=== PATIENT | female | born 1995 | race Caucasian/White ===

== ENCOUNTER 2016-08-15 10:22 | Emergency (ER) | payer SELFPAY ==
[~2016-08-15] VITALS: Ht 165.1 cm; Wt 83.5 kg
[~2016-08-15 10:22] MED LIST: AGM875T PO; ALBU8.5H2 IH; AMOX-355 PO; AMOX-358 PO; AZIT250T5 PO; CEFD300C3 PO; CEPH-38 PO; CETI10TA17 PO; CLAR500T2 PO; D-ME118S33 PO; DCS100C PO; DEPO PROVERA; DEPRESSION MED; DOXY100C2 PO; Diphenhydramine Hcl PO; HYDR-3714 PO; HYDR1TAB PO; IBP600T1 PO; IBP800T PO; IBUP-1773 PO; METR500T PO; NAPR-243 PO; NAPR550T PO; NITR100C44 PO; ONDA-42 SL; ONDA8TAB13 PO; OXYC1TAB12 PO; PNV1TAB.7 PO; PNV1TABL67 PO; POLY17PO23 PO; PRD10T PO; PRD20T PO; PRX10T PO; SERT25TA PO; [UNRECOGNIZED DRUG - REMARK]
--- OUTSIDE RECORDS SUMMARY | 2016-08-15 10:29 | XMS REPORT | Continuity of Care Document ---
Author Author [facility] Organization [facility] Address Unknown Phone Unavailable Care Team Providers Care Line Analyst Name Role Phone SERGE BERGMAN MD PCP Insurance Providers Payer Name Policy Number Subscriber Name Relationship Swati K[employer] [id number] Christine Goldman 18 Self / Same As Patient Advance Directives Directive Response Recorded Date/Time Advance Directives No 05/24/14 3:48pm Health Care Power of Maintenance Data Analyst No 05/24/14 3:48pm Organ Donor Yes 05/24/14 3:48pm Resuscitation Status Full Code 05/24/14 3:48pm Problems Medical Problems Problem Onset Date Status Contusion of right arm Unknown Active Contusion of right arm Unknown Active Urinary tract infection Unknown Active Abdominal wall pain Unknown Active Dehydration, mild Unknown Active Nausea and vomiting in Unknown Active Rib pain on right side Unknown Active Urinary tract infection during Unknown Active Nausea Unknown Active Rib pain on right side Unknown Active Medications Medication Dose Route Sig Days/Qty Instructions Order Date Discontinued Date Status Ibuprofen 1 Each PO TID PRN 30 Qty 11/07/08 07/28/09 Discontinued Naproxen 1 Each PO TID PRN 15 Qty FOR PAIN 02/23/09 07/28/09 Discontinued [Depo Provera] 07/28/09 03/07/11 Discontinued Ibuprofen 800 Mg PO TWICE A DAY 30 Qty 07/28/09 03/07/11 Discontinued Albuterol 8.5 Gm IH EVERY 6 HOURS 2 PUFFS 12/03/11 01/15/14 Discontinued Metronidazole 1 Each PO TWICE A DAY 14 Days 12/03/11 04/30/12 Discontinued Doxycycline Hyclate (Vibramycin) 1 Each PO TWICE A DAY 14 Days 04/30/12 Discontinued Naproxen 1 Each PO TID PRN 20 Qty 01/26/12 04/30/12 Discontinued Amoxicillin/Clavulanate Potassium 1 Tab PO TWICE A DAY 20 Qty FOR INFECTION 04/24/12 04/30/12 Discontinued Cetirizine HCl (Zyrtec) 10 Mg PO DAILY 04/30/12 06/02/12 Discontinued [?Med For Bi-Polar] DAILY 07/17/12 10/12/12 Discontinued Acetaminophen/Hydrocodone Bitart 1 - 2 Each PO Q4HR PRN 8 Qty 08/11/12 01/15/14 Discontinued Doxycycline Hyclate (Vibramycin) 1 Each PO TWICE A DAY 7 Days 08/11/12 10/12/12 Discontinued [Depression Med] 10/12/12 01/15/14 Discontinued Naproxen Sodium 550 Mg PO TWICE A DAY PRN PAIN 10 Qty 01/15/14 Discontinued Cefdinir (Omnicef) 1 Each PO TWICE A DAY 14 Qty 02/01/14 03/03/14 Discontinued Ondansetron Hcl 4 Mg SL EVERY 4HRS 10 Qty 03/03/14 04/28/14 Discontinued Polyethylene Glycol 17 Gm PO DAILY 7 Days FOR CONSTIPATION 03/03/14 Discontinued Pnv No.115/Iron Fumarate/FA 1 Each PO DAILY 04/28/14 Active Hydrocodone Bit/Acetaminophen 1 Tab PO EVERY 4HRS PRN PAIN 6 Qty 05/24/14 Discontinued Cephalexin Monohydrate 1 Each PO THREE TIMES A DAY 30 Qty 04/28/14 Discontinued Nitrofurantoin/Nitrofuran Mac 100 Mg PO TWICE A DAY 7 Days 05/24/14 Active Social History Social History Problem Response Recorded Date/Time Alcohol Use Denies Use 05/03/2014 8:12pm Recreational Drug Use No 05/03/2014 8:12pm Recent Foreign Travel No 05/24/2014 3:51pm Smoking Status Current Everyday Smoker 05/24/2014 3:49pm Do you dip or chew tobacco? No 05/24/2014 3:49pm Query Response Start Date Stop Date Smoking Status Current Everyday Smoker Hospital Discharge Instructions No hospital discharge instructions. Plan of Care No plan of care. Functional Status No functional status results. Allergies, Adverse Reactions, Alerts Allergen Type Severity Reaction Status Last Updated No Known Drug Allergies Active 11/07/08 Immunizations Name Given Type Tetanus Booster (TDap) Less than 5yrs Historical influenza, split (incl. purified surface antigen) 05/24/14 Administered Vital Signs Acute Vital Signs Vital Response Date/Time Temperature (Fahrenheit) 96.8 degrees F (97.6 - 99.5) Temperature (Calculated Celsius) 36.70714 degrees C (36.4 - 37.5) Temperature Source Tympanic Pulse Rate (adult) 85 bpm (60 - 90) Pulse Rate (Adolescent 12-19yrs) 87 bpm (56 - 106) Respiratory Rate 18 bpm (12 - 24) O2 Sat by Pulse Oximetry 100 % (88 - 100) Respiratory Rate (Adolescent 12-19yrs) 18 bpm (15 - 20) Blood Pressure 111/68 mm Hg Blood Pressure Systolic (Adolescent 12-19yrs) 115 mm Hg (115 - 120) Pain Pain Intensity 9 Height (Feet) 5 feet Height (Inches) 4.00 inches Height (Calculated Centimeters) 162.773593 cm Weight (Pounds) 162 pounds Weight (Calculated Grams) 59138.965 gm Weight (Calculated Kilograms) 73.682595 kilograms Calculated BMI 27.80 Results Test Source Date Result Interp. Ref. Range Comments Alanine Aminotransferase (ALT/SGPT) April 28, 2014 4:25pm 10 U/L N 0- 55 Albumin April 28, 2014 4:25pm 3.8 G/DL N 3.2-4.5 Alkaline Phosphatase April 28, 2014 4:25pm 47 U/L L 60-350 Aspartate Amino Transf (AST/SGOT) April 28, 2014 4:25pm 11 U/L N 5-34 BUN/Creatinine Ratio April 28, 2014 4:25pm 5 - Band Neutrophils January 27, 2006 3:15pm 0 - Has specimen been collected /obtained? Y Basophils # (Auto) April 28, 2014 4:25pm 0.0 10^3/uL N 0.0-0.1 Basophils (%) (Auto) April 28, 2014 4:25pm 0 % N 0-10 Blood Urea Nitrogen April 28, 2014 4:25pm 3 MG/DL L 7-18 Calcium Level April 28, 2014 4:25pm 9.3 MG/DL N 8.5-10.1 Carbon Dioxide Level April 28, 2014 4:25pm 23 MMOL/L N 21-32 Chlamydia DNA Probe December 03, 2011 5:50pm NEG - Chlamydia/GC DNA Probe Source December 03, 2011 5:50pm CERVIX - Chloride Level April 28, 2014 4:25pm 111 MMOL/L H 98-107 Creatinine April 28, 2014 4:25pm 0.58 MG/DL L 0.60-1.30 Eosinophils # (Auto) April 28, 2014 4:25pm 0.1 10^3/uL N 0.0-0.3 Eosinophils (%) (Auto) April 28, 2014 4:25pm 1 % N 0-10 Glucose Level April 28, 2014 4:25pm 72 MG/DL N 70-105 Group A Streptococcus Screen April 24, 2012 11:02pm NEGATIVE - Hematocrit April 28, 2014 4:25pm 34 % L 35-52 Hemoglobin April 28, 2014 4:25pm 11.9 G/DL N 11.5-16.0 Lipase April 28, 2014 4:25pm 12 U/L N 8-78 Lymphocytes # (Auto) April 28, 2014 4:25pm 2.7 X 10^3 N 1.0-4.0 Lymphocytes % (Manual) January 27, 2006 3:15pm 13 - Has specimen been collected/obtained? Y Lymphocytes (%) (Auto) April 28, 2014 4:25pm 22 % N 12-44 Mean Corpuscular Hemoglobin April 28, 2014 4:25pm 30 PG N 25-34 Mean Corpuscular Hemoglobin Concent April 28, 2014 4:25pm 35 G/DL N 32 -36 Mean Corpuscular Volume April 28, 2014 4:25pm 85 FL N 80-99 Mean Platelet Volume April 28, 2014 4:25pm 9.0 FL N 7.4-10.4 Monocytes # (Auto) April 28, 2014 4:25pm 0.8 X 10^3 N 0.0-1.0 Monocytes % (Manual) January 27, 2006 3:15pm 6 - Has specimen been collected/obtained? Y Monocytes (%) (Auto) April 28, 2014 4:25pm 6 % N 0-12 Monoscreen April 24, 2012 11:02pm NEGATIVE - Neisseria gonorrhoeae DNA Probe December 03, 2011 5:50pm NEG - Neutrophils # (Auto) April 28, 2014 4:25pm 8.9 X 10^3 H 1.8-7.8 Neutrophils % (Manual) January 27, 2006 3:15pm 81 - Has specimen been collected/obtained? Y Neutrophils (%) (Auto) April 28, 2014 4:25pm 71 % N 42-75 Platelet Count April 28, 2014 4:25pm 291 10^3/uL N 130-400 Potassium Level April 28, 2014 4:25pm 3.9 MMOL/L N 3.6-5.0 Red Blood Count April 28, 2014 4:25pm 4.02 10^6/uL L 4.35-5.85 Red Cell Distribution Width April 28, 2014 4:25pm 13.2 % N 10.0-14.5 Sodium Level April 28, 2014 4:25pm 141 MMOL/L N 135-145 Total Bilirubin April 28, 2014 4:25pm 0.2 MG/DL N 0.1-1.0 Total Protein April 28, 2014 4:25pm 6.5 G/DL N 6.4-8.2 Urine Amorphous Sediment August 11, 2012 10:16pm MOD ROSARIO PHOSPHATE / LPF H - Has specimen been collected/obtained? YSpecimen Description CLEAN CATCH Urine Bacteria April 28, 2014 4:25pm FEW /HPF H - Has specimen been collected/obtained? YSpecimen Description CLEAN CATCH Urine Bilirubin April 28, 2014 4:25pm NEGATIVE - Has specimen been collected/obtained? YSpecimen Description CLEAN CATCH Urine Calcium Oxalate Crystals April 28, 2014 4:25pm LARGE /LPF H - Has specimen been collected/obtained? YSpecimen Description CLEAN CATCH Urine Casts April 28, 2014 4:25pm NONE /LPF - Has specimen been collected/obtained? YSpecimen Description CLEAN CATCH Urine Clarity April 28, 2014 4:25pm SLIGHTLY CLOUDY - Has specimen been collected/obtained? YSpecimen Description CLEAN CATCH Urine Color April 28, 2014 4:25pm YELLOW - Has specimen been collected/obtained? YSpecimen Description CLEAN CATCH Urine Crystals April 28, 2014 4:25pm PRESENT /LPF H - Has specimen been collected/obtained? YSpecimen Description CLEAN CATCH Urine Culture Indicated April 28, 2014 4:25pm YES - Has specimen been collected/obtained? YSpecimen Description CLEAN CATCH Urine Glucose (UA) April 28, 2014 4:25pm NEGATIVE - Has specimen been collected/obtained? YSpecimen Description CLEAN CATCH Urine Ketones April 28, 2014 4:25pm NEGATIVE - Has specimen been collected/obtained? YSpecimen Description CLEAN CATCH Urine Leukocyte Esterase April 28, 2014 4:25pm 2+ H - Has specimen been collected/obtained? YSpecimen Description CLEAN CATCH Urine Mucus April 28, 2014 4:25pm LARGE /LPF H - Has specimen been collected/obtained? YSpecimen Description CLEAN CATCH Urine Nitrite April 28, 2014 4:25pm NEGATIVE - Has specimen been collected/obtained? YSpecimen Description CLEAN CATCH Urine Test May 15, 2008 8:45am Negative - Has specimen been collected/obtained? YSpecimen Description CLEAN CATCH Urine Protein April 28, 2014 4:25pm NEGATIVE - Has specimen been collected/obtained? YSpecimen Description CLEAN CATCH Urine RBC April 28, 2014 4:25pm NONE /HPF - Has specimen been collected/obtained? YSpecimen Description CLEAN CATCH Urine Specific [place] April 28, 2014 4:25pm 1.020 - Has specimen been collected/obtained? YSpecimen Description CLEAN CATCH Urine Squamous Epithelial Cells April 28, 2014 4:25pm 5-10 /HPF - Has specimen been collected/obtained? YSpecimen Description CLEAN CATCH Urine Urobilinogen April 28, 2014 4:25pm 1 MG/DL - Has specimen been collected/obtained? YSpecimen Description CLEAN CATCH Urine WBC April 28, 2014 4:25pm 5-10 /HPF H - Has specimen been collected/obtained? YSpecimen Description CLEAN CATCH Urine pH April 28, 2014 4:25pm 6.5 - Has specimen been collected/ obtained? YSpecimen Description CLEAN CATCH White Blood Count April 28, 2014 4:25pm 12.5 10^3/uL H 4.3-11.0 Estimat Glomerular Filtration Rate April 28, 2014 4:25pm > 60 - GFR INTERPRETIVE DATA UNITS FOR ESTIMATED GFR (eGFR): mL/min/1.73 M2 REFERENCE RANGE FOR ESTIMATED GFR (eGFR) eGFR NORMAL eGFR >60 MODERATELY DECREASED eGFR 30-59 SEVERLY DECREASED eGFR 15-29 KIDNEY FAILURE <15 (OR DIALYSIS) Urine RBC (Auto) April 28, 2014 4:25pm NEGATIVE - Has specimen been collected/obtained? YSpecimen Description CLEAN CATCH Genital Culture Cervix December 03, 2011 5:50pm Usual/normal sharif isolated. Throat Culture Throat April 24, 2012 11:02pm No Beta Strep isolated Urine Culture Urine-Clean Catch April 28, 2014 4:25pm Procedures No known history of procedures. Encounters Encounter Location Date/Time Departed Clinic Via [facility] 05/24/14 3:34pm Departed Emergency Room [facility] 05/03/14 8:11pm Departed Emergency Room [facility] 04/28/14 3:48pm
--- NOTE | 2016-08-15 11:32 | ED Lower Extremity ---
General Chief Complaint: Lower Extremity Stated Complaint: RIGHT FOOT INJURY Nursing Triage Note: LAST NIGHT DROPPED A CAN ON BEANS ON FOOT PAIN IN FOOT SINCE. Nursing Sepsis Screen: No Definite Risk Source: patient Exam Limitations: no limitations History of Present Illness Time seen by provider: 11:32 Initial Comments 21-year-old female patient presents to the emergency department complaints of dropping a can of beans on her right foot last night. Reports increased pain today. Denies using Tylenol or ibuprofen for pain. Location Injury Occurred: home Onset: yesterday Pain/Injury Location: right foot Method of Injury: direct blow Modifying Factors: Worse With Movement Allergies and Home Medications Allergies Coded Allergies: hydrocodone (Verified Adverse Reaction, Mild, 09/10/14) Itching Home Medications No Active Prescriptions or Reported Meds Constitutional: no symptoms reported Musculoskeletal: see HPI joint pain (right foot)No joint swelling Skin: change in color (ecchymosis right foot) Psychiatric/Neurological: Denies Numbness, Denies Paresthesia, Denies Tingling , Denies Weakness All Other Systems Reviewed Negative Unless Noted: Yes (Negative excepted noted.) Past Dnpejsm-Xnsmjg-Dimypf Hx Patient Social History Alcohol Use: Denies Use Recreational Drug Use: No Smoking Status: Current Everyday Smoker Type Used: Cigarettes Former Smoker/When Quit: Jun 30, 2014 Recent Foreign Travel: No Contact w/Someone Who Travel: No Recent Infectious Disease Expo: No Recent Hopitalizations: No Immunizations Up To Date Tetanus Booster (TDap): Less than 5yrs Seasonal Allergies Seasonal Allergies: No Surgeries HX Surgeries: Yes (R WRIST REPAIR SECONDARY TO DOG BITE, BMT'S X 4) Surgeries: Adenoidectomy, Section, Ear Surgery, Gallbladder, Orthopedic, Tonsillectomy Respiratory Hx Respiratory Disorders: Yes Respiratory Disorders: Asthma Cardiovascular Hx Cardiac Disorders: No Neurological Hx Neurological Disorders: No 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 System Hx 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 Genitourinary Hx Genitourinary Disorders: No Gastrointestinal Hx Gastrointestinal Disorders: No Gastrointestinal Disorders: Gall Bladder Disease Musculoskeletal Hx Musculoskeletal Disorders: No Endocrine Hx Endocrine Disorders: No HEENT HX ENT Disorders: Yes (BMT'S X 4 ) HEENT Disorders: Chronic Ear Infection Cancer Hx Cancer: No Psychosocial Hx Psychiatric Problems: Yes Behavioral Health Disorders: Anxiety, Bipolar, Depression Integumentary HX Skin/Integumentary Disorder: No Blood Transfusions Hx Blood Disorders: No Reviewed Nursing Assessment Reviewed/Agree w Nursing PMH: Yes Family Medical History Significant Family History: No Pertinent Family Hx Physical Exam Vital Signs Vital Sign - Last 12Hours 08/15/16 10:56 Temp 97.7 Pulse 63 Resp 18 B/P 103/72 O2 Delivery Room Air Capillary Refill : Less Than 3 Seconds General Appearance: WD/WN no apparent distress Cardiovascular: normal peripheral pulses regular rate, rhythm no edema no murmur Respiratory: lungs clear normal breath sounds no respiratory distress Legs: bilateral leg non-tender, bilateral leg normal inspection, bilateral leg normal range of motion, bilateral leg no evidence of injury Knees: bilateral knee non-tender, bilateral knee normal inspection, bilateral knee normal range of motion, bilateral knee no evidence of injury Ankles: bilateral ankle non-tender, bilateral ankle normal inspection, bilateral ankle normal range of motion, bilateral ankle no evidence of injury Feet: left foot non-tender, left foot normal inspection, left foot normal range of motion, left foot no evidence of injury, right foot bone tenderness ( mid dorsal foot), right foot ecchymosis (2x3 cm area of ecchymosis mid dorsal foot), right foot limited range of motion, right foot pain, right foot soft tissue tenderness Neurologic/Tendon: normal sensation normal motor functions normal tendon functions responds to pain no evidence tendon injury Neurologic/Psychiatric: no motor/sensory deficits alert normal mood/affect oriented x 3 Skin: normal color warm/dry ecchymosis (2x3 cm area of ecchymosis mid dorsal foot) Progress/Results/Core Measures Results/Orders My Orders Orders-JOMAR HANNON Foot, Right, 3 View (08/15/16 11:30) Vital Signs/I&O Vital Sign - Last 12Hours 08/15/16 10:56 Temp 97.7 Pulse 63 Resp 18 B/P 103/72 O2 Delivery Room Air Blood Pressure Mean: 82 Diagnostic Imaging Diagonstic Imaging: Xray Plain Films/CT/US/NM/MRI: other (right foot) Comments FINDINGS: No fracture, dislocation or radiopaque foreign body seen. Joint alignment is satisfactory. IMPRESSION: Unremarkable exam. Dictated on workstation # [id number] Reviewed: Reviewed by Me (radiology report reviewed by me) Departure Communication Progress Notes [facility] Impression Impression: Primary Impression: Contusion of foot Qualified Code: S90.31XA - Contusion of right foot, initial encounter Disposition: 01 HOME, SELF-CARE Condition: Improved Departure-Patient Inst. Decision time for Depature: 12:12 Referrals: NO,LOCAL PHYSICIAN (PCP/Family) Primary Care Physician Patient Instructions: Contusion (DC) Add. Discharge Instructions: All discharge instructions reviewed with patient and/or family. Voiced understanding. Tylenol extra strength [id number] as directed for pain. Ibuprofen 800 mg by mouth every 8 hours as needed for pain. Elevate right foot on pillows. Ice pack for 20 minute intervals as needed for pain. Follow-up with your family practitioner if no improvement in symptoms in 7-10 days. Return to the emergency department for worsened symptoms or any other concerns. 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
--- NOTE | 2016-08-15 12:02 | Diagnostic Imaging Report ---
3 views of the right foot. INDICATION: Right foot pain after injury with a can dropped on the foot FINDINGS: No fracture, dislocation or radiopaque foreign body seen. Joint alignment is satisfactory. IMPRESSION: Unremarkable exam. Dictated by: Dictated on workstation # [id number]
[2016-08-15] MEDS ORDERED: IBUPROFEN 800 MG (MOTRIN) TAB PO STA (12:16)
[2016-08-15 12:20] VITALS: BP 103/72
== END 2016-08-15 12:22 | disposition home or self-care (01) ==
LOC: EDUNIT# 10:22 → ER 10:24
DX: S90.31XA Contusion of right foot, initial encounter (principal); W20.8XXA Other cause of strike by thrown, projected or falling object, initial encounter; Y92.009 Unspecified place in unspecified non-institutional (private) residence as the place of occurrence of the external cause; Y99.8 Other external cause status
CPT/HCPCS: 73630; 99283

== ENCOUNTER 2016-10-31 14:11 | Emergency (ER) | payer SELFPAY ==
[~2016-10-31] VITALS: Ht 165.1 cm; Wt 79.4 kg
[2016-10-31] MEDS ORDERED: CYCL5TAB PO (14:24)
--- NOTE | 2016-10-31 14:24 | ED Back Pain ---
General Chief Complaint: Back Problems Stated Complaint: BACK PAIN Source of Information: Patient Exam Limitations: No Limitations History of Present Illness Time Seen by Provider: 14:22 Initial Comments To ER with pain in her back from lifting one of her residence at work yesterday. No falls. No fevers or chills. Pain is worsened by movement. She needs a work note excusing her from work tomorrow. Location: Lumbar Spine, Paraspinous Muscles Timing/Duration: 12-24 Hours Associated Symptoms: lower back pain Allergies and Home Medications Allergies Coded Allergies: hydrocodone (Verified Adverse Reaction, Mild, 09/10/14) Itching Constitutional: see HPI EENTM: see HPI Respiratory: no symptoms reported Cardiovascular: no symptoms reported Genitourinary: no symptoms reported Musculoskeletal: see HPI, back pain Skin: no symptoms reported Psychiatric/Neurological: No Symptoms Reported Past Audvigk-Pwbqni-Urjmzu Hx Patient Social History Type Used: Cigarettes Former Smoker/When Quit: Jun 30, 2014 Recent Foreign Travel: No Contact w/Someone Who Travel: No Recent Hopitalizations: No Immunizations Up To Date Tetanus Booster (TDap): Less than 5yrs Seasonal Allergies Seasonal Allergies: No Surgeries HX Surgeries: Yes (R WRIST REPAIR SECONDARY TO DOG BITE, BMT'S X 4) Surgeries: Adenoidectomy, Section, Ear Surgery, Gallbladder, Orthopedic, Tonsillectomy Respiratory Hx Respiratory Disorders: Yes Respiratory Disorders: Asthma Cardiovascular Hx Cardiac Disorders: No Neurological Hx Neurological Disorders: No 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 System Hx 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 Genitourinary Hx Genitourinary Disorders: No Gastrointestinal Hx Gastrointestinal Disorders: No Gastrointestinal Disorders: Gall Bladder Disease Musculoskeletal Hx Musculoskeletal Disorders: No Endocrine Hx Endocrine Disorders: No HEENT HX ENT Disorders: Yes (BMT'S X 4 ) HEENT Disorders: Chronic Ear Infection Cancer Hx Cancer: No Psychosocial Hx Psychiatric Problems: Yes Behavioral Health Disorders: Anxiety, Bipolar, Depression Integumentary HX Skin/Integumentary Disorder: No Blood Transfusions Hx Blood Disorders: No Family Medical History Significant Family History: No Pertinent Family Hx Physical Exam Vital Signs Capillary Refill : General Appearance: No Apparent Distress, WD/WN HEENT: PERRL/EOMI, TMs Normal Respiratory: No Accessory Muscle Use, No Respiratory Distress Gastrointestinal: Non Tender, Soft Back: Normal Inspection Extremity: Normal Capillary Refill, Normal Inspection Neurologic/Psychiatric: Alert, Oriented x3 Skin: Normal Color, Warm/Dry Departure Impression Impression: Primary Impression: Acute low back pain Disposition: 01 HOME, SELF-CARE Condition: Stable Departure-Patient Inst. Decision time for Depature: 14:23 Referrals: NO,LOCAL PHYSICIAN (PCP/Family) Primary Care Physician Patient Instructions: Muscle Strain (DC) Add. Discharge Instructions: 1. Medication as directed in addition to Tylenol and Motrin 2. Return to ER for any concerns or worsening symptoms All discharge instructions reviewed with patient and/or family. Voiced understanding. Scripts Cyclobenzaprine HCl (Cyclobenzaprine HCl) 5 Mg Tablet 5 MG PO TID Y for PAIN-MODERATE, #14 TAB Prov: NI DIOP APRN 10/31/16 Work/School Note: Work Release Form Date Seen in the Emergency Department: Oct 31, 2016 Return to Work: Nov 02, 2016 Other Restrictions Listed Below: No lifting over 5 pounds until 11/04/16. NI DIOP APRN Oct 31, 2016 14:24
[2016-10-31] MEDS ORDERED: KETOROLAC 60 MG/2 ML VIAL IM ONE (14:30)
[2016-10-31 14:45] VITALS: BP 132/88
== END 2016-10-31 14:48 | disposition home or self-care (01) ==
LOC: EDUNIT# 14:11 → ER 14:14
DX: M54.5 Low back pain (principal)
CPT/HCPCS: 96372; 99281

== ENCOUNTER 2016-11-15 20:34 | Emergency (ER) | payer SELFPAY ==
[~2016-11-15] VITALS: Ht 165.1 cm; Wt 83.9 kg
[~2016-11-15 20:34] MED LIST changes: +CYCL5TAB PO
[2016-11-15] MEDS ORDERED: ACET325T49 PO (20:53)
[2016-11-15] MEDS ORDERED: ONDANSETRON 4 MG/2 ML (SDV) Z0FRAN IVP ONE (22:30)
[2016-11-15] MEDS ORDERED: fentaNYL INJECTION 100 MCG/2 ML AMP IVP ONE (22:30)
[2016-11-15 22:31] LABS: BASOPHILS # (AUTO) 0.1 10^3/uL (0.0-0.1); BASOPHILS % (AUTO) 0 % (0-10); EOSINOPHILS # (AUTO) 0.2 10^3/uL (0.0-0.3); EOSINOPHILS % (AUTO) 2 % (0-10); LYMPHOCYTES # (AUTO) 3.9 X 10^3 (1.0-4.0); LYMPHOCYTES % (AUTO) 33 % (12-44); MEAN CORPUSCULAR HEMOGLOBIN 29 PG (25-34); MEAN CORPUSCULAR HGB CONC 34 G/DL (32-36); MEAN CORPUSCULAR VOLUME 85 FL (80-99); MEAN PLATELET VOLUME 9.4 FL (7.4-10.4); MONOCYTES # (AUTO) 1.1 X 10^3 (0.0-1.0); MONOCYTES % (AUTO) 9 % (0-12); NEUTROPHILS # (AUTO) 6.7 X 10^3 (1.8-7.8); NEUTROPHILS % (AUTO) 56 % (42-75); PLATELET COUNT 314 10^3/uL (130-400); RED BLOOD COUNT 4.63 10^6/uL (4.35-5.85); RED CELL DISTRIBUTION WIDTH 13.5 % (10.0-14.5); WHITE BLOOD COUNT 11.9 10^3/uL (4.3-11.0)
[2016-11-15 22:33] LABS: ALANINE AMINOTRANSFERASE 10 U/L (0-55); ALBUMIN 4.5 G/DL (3.2-4.5); ANION GAP 11 MMOL/L (5-14); ASPARTATE AMINO TRANSFERASE 10 U/L (5-34); BILIRUBIN,TOTAL 0.3 MG/DL (0.1-1.0); BLOOD UREA NITROGEN 8 MG/DL (7-18); BUN/CREATININE RATIO 10; CALCIUM 9.4 MG/DL (8.5-10.1); CARBON DIOXIDE 20 MMOL/L (21-32); CHLORIDE 108 MMOL/L (98-107); GFR ESTIMATED > 60; GLUCOSE 89 MG/DL (70-105); LIPASE 19 U/L (8-78); POTASSIUM 3.7 MMOL/L (3.6-5.0); SODIUM 139 MMOL/L (135-145); TOTAL PROTEIN 6.8 G/DL (6.4-8.2)
[2016-11-15 22:39] LABS: BILIRUBIN,URINE NEGATIVE (NEGATIVE); KETONES,URINE NEGATIVE (NEGATIVE); LEUKOCYTE ESTERASE ,URINE NEGATIVE (NEGATIVE); NITRITE,URINE NEGATIVE (NEGATIVE); PH,URINE 6 (5-9); PROTEIN,URINE NEGATIVE (NEGATIVE); UROBILINOGEN,URINE NORMAL (NORMAL)
[2016-11-15] MEDS ORDERED: KETOROLAC 30 MG/ML VIAL IVP ONE (23:45)
[2016-11-15] MEDS ORDERED: ONDA4TAB8 SL (23:48)
--- NOTE | 2016-11-15 23:49 | ED Abdominal Pain ---
General Chief Complaint: Abdominal/GI Problems Stated Complaint: ABD PAIN/BACK PAIN/SOB Nursing Triage Note: pt reports left sided abd pain starting this morning et worsening throughout the day. she reports pain radiates to back. fever this morning of 102. Sepsis Screen: No Definite Risk Source of Information: Patient Exam Limitations: No Limitations History of Present Illness Time Seen By Provider: 22:06 Initial Comments This 21-year-old woman presents with complaints of left lower quadrant pain radiating to the back. She has associated nausea without vomiting. She denies any constipation or diarrhea. Pain started this morning. She denies any vaginal or urinary symptoms. Pain is rated as 9/10. Patient reports a fever this morning but she is afebrile at present. She has a Nexplanon implanted control. She took Tylenol, Flexeril, and ibuprofen at home without significant improvement. She denies any alcohol use. She denies hematuria. Allergies and Home Medications Allergies Coded Allergies: hydrocodone (Verified Adverse Reaction, Mild, 09/10/14) Itching Home Medications Acetaminophen 325 Mg Tablet, 650 MG PO PRN, (Reported) Ondansetron 4 Mg Tab.rapdis, 4 MG SL Q4H PRN for NAUSEA/VOMITING-1ST LINE, #10 Prescribed by: MICHAEL BELTRÁN on 11/15/16 1716 Review of Systems Constitutional: no symptoms reported EENTM: No Symptoms Reported Respiratory: No Symptoms Reported Cardiovascular: No Symptoms Reported Gastrointestinal: See HPI Genitourinary: See HPI Musculoskeletal: no symptoms reported Skin: no symptoms reported Psychiatric/Neurological: No Symptoms Reported Endocrine: No Symptoms Reported Hematologic/Lymphatic: No Symptoms Reported Past Ipsztac-Slgziy-Cnzcps Hx Patient Social History Alcohol Use: Occasionally Uses Recreational Drug Use: No Smoking Status: Current Everyday Smoker Type Used: Cigarettes Former Smoker/When Quit: Jun 30, 2014 Recent Foreign Travel: No Contact w/Someone Who Travel: No Recent Infectious Disease Expo: No Recent Hopitalizations: No Immunizations Up To Date Tetanus Booster (TDap): Less than 5yrs Seasonal Allergies Seasonal Allergies: No Surgeries HX Surgeries: Yes (R WRIST REPAIR SECONDARY TO DOG BITE, BMT'S X 4) Surgeries: Adenoidectomy, Section, Ear Surgery, Gallbladder, Orthopedic, Tonsillectomy Respiratory Hx Respiratory Disorders: Yes Respiratory Disorders: Asthma Cardiovascular Hx Cardiac Disorders: No Neurological Hx Neurological Disorders: No 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 System Hx 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 Disorders: No 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 Genitourinary Hx Genitourinary Disorders: No Gastrointestinal Hx Gastrointestinal Disorders: No Gastrointestinal Disorders: Gall Bladder Disease Musculoskeletal Hx Musculoskeletal Disorders: No Endocrine Hx Endocrine Disorders: No HEENT HX ENT Disorders: Yes (BMT'S X 4 ) HEENT Disorders: Chronic Ear Infection Cancer Hx Cancer: No Psychosocial Hx Psychiatric Problems: Yes Behavioral Health Disorders: Anxiety Integumentary HX Skin/Integumentary Disorder: No Blood Transfusions Hx Blood Disorders: No Family Medical History Significant Family History: No Pertinent Family Hx Physical Exam Vital Signs VS - Last 72 Hours, by Label 11/15/16 11/16/16 20:47 00:13 Temp 99.9 Pulse 110 81 Resp 16 18 B/P (MAP) 137/93 Pulse Ox 92 Capillary Refill : Less Than 3 Seconds General Appearance: WD/WN, mild distress HEENT: PERRL/EOMI, normal ENT inspection, pharynx normal Neck: normal inspection Respiratory: lungs clear, normal breath sounds, no respiratory distress, no accessory muscle use Cardiovascular: regular rate, rhythm, no edema, no murmur Gastrointestinal: normal bowel sounds, soft, tenderness (left lower quadrant) Extremities: normal inspection, no pedal edema Back: normal inspection, no CVA tenderness Neurologic/Psychiatric: manager analysis II-XII nml as tested, no motor/sensory deficits, alert, normal mood/affect, oriented x 3 Skin: normal color, warm/dry Progress/Results/Core Measures Results/Orders Lab Results Laboratory Tests Test 11/15/16 20:40 11/15/16 20:51 11/15/16 20:57 Range/Units Urine Color YELLOW Urine Clarity CLEAR Urine pH 6 5-9 Urine Specific [place] 1.025 H 1.016-1.022 Urine Protein NEGATIVE NEGATIVE Urine Glucose (UA) NEGATIVE NEGATIVE Urine Ketones NEGATIVE NEGATIVE Urine Nitrite NEGATIVE NEGATIVE Urine Bilirubin NEGATIVE NEGATIVE Urine Urobilinogen NORMAL NORMAL MG/DL Urine Leukocyte Esterase NEGATIVE NEGATIVE Urine RBC (Auto) 2+ H NEGATIVE Urine RBC 5-10 H /HPF Urine WBC NONE /HPF Urine Squamous Epithelial Cells 5-10 /HPF Urine Crystals NONE /LPF Urine Bacteria NONE /HPF Urine Casts NONE /LPF Urine Mucus SMALL H /LPF Urine Culture Indicated NO White Blood Count 11.9 H 4.3-11.0 10^3/uL Red Blood Count 4.63 4.35-5.85 10^6/uL Hemoglobin 13.3 11.5-16.0 G/DL Hematocrit 40 35-52 % Mean Corpuscular Volume 85 80-99 FL Mean Corpuscular Hemoglobin 29 25-34 PG Mean Corpuscular Hemoglobin Concent 34 32-36 G/DL Red Cell Distribution Width 13.5 10.0-14.5 % Platelet Count 314 130-400 10^3/uL Mean Platelet Volume 9.4 7.4-10.4 FL Neutrophils (%) (Auto) 56 42-75 % Lymphocytes (%) (Auto) 33 12-44 % Monocytes (%) (Auto) 9 0-12 % Eosinophils (%) (Auto) 2 0-10 % Basophils (%) (Auto) 0 0-10 % Neutrophils # (Auto) 6.7 1.8-7.8 X 10^3 Lymphocytes # (Auto) 3.9 1.0-4.0 X 10^3 Monocytes # (Auto) 1.1 H 0.0-1.0 X 10^3 Eosinophils # (Auto) 0.2 0.0-0.3 10^3/uL Basophils # (Auto) 0.1 0.0-0.1 10^3/uL Sodium Level 139 135-145 MMOL/L Potassium Level 3.7 3.6-5.0 MMOL/L Chloride Level 108 H 98-107 MMOL/L Carbon Dioxide Level 20 L 21-32 MMOL/L Anion Gap 11 5-14 MMOL/L Blood Urea Nitrogen 8 7-18 MG/DL Creatinine 0.80 0.60-1.30 MG/DL Estimat Glomerular Filtration Rate > 60 BUN/Creatinine Ratio 10 Glucose Level 89 70-105 MG/DL Calcium Level 9.4 8.5-10.1 MG/DL Total Bilirubin 0.3 0.1-1.0 MG/DL Aspartate Amino Transf (AST/SGOT) 10 5-34 U/L Alanine Aminotransferase (ALT/SGPT) 10 0-55 U/L Alkaline Phosphatase 66 40-136 U/L Total Protein 6.8 6.4-8.2 G/DL Albumin 4.5 3.2-4.5 G/DL Lipase 19 8-78 U/L Serum Test, Qualitative NEGATIVE NEGATIVE My Orders Orders - MICHAEL HUNT MD Hcg,Qualitative Serum (11/15/16 22:22) Fentanyl Injection (Sublimaze Injection (11/15/16 22:30) Ondansetron Injection (Zofran Injectio (11/15/16 22:30) Ct Abdomen/Pelvis W (11/15/16 22:54) Ketorolac Injection (Toradol Injection) (11/15/16 23:45) Medications Given in ED Current Medications Medications Dose Ordered Sig/Param Route Start Time Stop Time Status Last Admin Dose Admin Fentanyl Citrate 50 mcg ONCE ONCE IVP 11/15/16 22:30 11/15/16 22:31 DC 11/15/16 22:31 50 MCG Ketorolac Tromethamine 30 mg ONCE ONCE IVP 11/15/16 23:45 11/15/16 23:46 DC 11/15/16 23:52 30 MG Ondansetron HCl 4 mg ONCE ONCE IVP 11/15/16 22:30 11/15/16 22:31 DC 11/15/16 22:31 4 MG Vital Signs/I&O Vital Sign - Last 12Hours 11/15/16 11/16/16 20:47 00:13 Temp 99.9 Pulse 110 81 Resp 16 18 B/P (MAP) 137/93 Pulse Ox 92 Blood Pressure Mean: 108 Progress Note : Progress Note Patient was treated with fentanyl and Zofran. Labs were reviewed. CT of the abdomen and pelvis was obtained. Ovarian cyst was noted. Patient was further treated with Toradol and dismissed home in improved condition. Departure Impression Impression: Primary Impression: Left lower quadrant pain Additional Impression: Ovarian cyst Qualified Codes: N83.202 - Unspecified ovarian cyst, left side Disposition: 01 HOME, SELF-CARE Condition: Improved Departure-Patient Inst. Decision time for Depature: 23:46 Referrals: NO,LOCAL PHYSICIAN (PCP/Family) Primary Care Physician Patient Instructions: Acute Abdomen (Belly Pain), Adult (DC) Add. Discharge Instructions: You may take ibuprofen up to 800 mg every 8 hours as needed for pain. Add Tylenol (acetaminophen) up to 1000 mg every 6 hours as needed for additional pain relief. Contact your women's health provider for follow-up. Return to the ER if symptoms worsen. All discharge instructions reviewed with patient and/or family. Voiced understanding. Scripts Ondansetron (Zofran Odt) 4 Mg Tab.rapdis 4 MG SL Q4H Y for NAUSEA/VOMITING-1ST LINE, #10 TAB Prov: MICHAEL HUNT MD 11/15/16 MICHAEL HUNT MD November 15, 2016 23:48
[2016-11-16 00:13] VITALS: BP 105/71
--- NOTE | 2016-11-16 06:01 | Diagnostic Imaging Report ---
PROCEDURE: CT abdomen and pelvis with contrast. TECHNIQUE: Multiple contiguous axial images were obtained through the abdomen and pelvis after administration of intravenous contrast. INDICATION: Left flank pain The lung bases are clear. Liver appears normal. Gallbladder surgically absent. There are no pancreatic masses. Spleen is not enlarged. Adrenals are normal. Kidneys appear normal. Small bowel is not dilated. Appendix is normal. There is moderate amount of stool in the colon. Uterus is present. There is a small left adnexal cyst. Urinary bladder is normal. There is no intraperitoneal free air or free fluid. IMPRESSION: No acute abnormality seen in the abdomen or pelvis. I agree with preliminary interpretation. Dictated by: Dictated on workstation # [id number]
== END 2016-11-16 00:13 | disposition home or self-care (01) ==
LOC: EDUNIT# 20:34 → ER 20:36
DX: R10.32 Left lower quadrant pain (principal); N83.202 Unspecified ovarian cyst, left side; F17.210 Nicotine dependence, cigarettes, uncomplicated
CPT/HCPCS: 36415; 74177; 80053; 81000; 83690; 84703; 85025

== ENCOUNTER 2016-11-17 14:00 | Emergency (ER) | payer SELFPAY ==
[~2016-11-17] VITALS: Ht 162.6 cm; Wt 61.2 kg
[~2016-11-17 14:00] MED LIST changes: +ACET325T49 PO; +ONDA4TAB8 SL
[2016-11-17] MEDS ORDERED: KETOROLAC 30 MG/ML VIAL IVP ONE (14:30)
--- NOTE | 2016-11-17 14:36 | ED Abdominal Pain ---
General Chief Complaint: -Female Stated Complaint: CYST ON OVARIES Source of Information: Patient Exam Limitations: No Limitations History of Present Illness Time Seen By Provider: 14:31 Initial Comments This 21-year-old female presents complaining of lower abdominal pain presumably from a previously documented ovarian cyst. The patient was recently evaluated in the emergency department and found to have an ovarian cyst on CT examination. The patient's pain precipitated her presentation emergency department today. She described it as sharp in nature. Located in the left suprapubic area and pelvic region. There has been no associated dysuria, frequency, vaginal discharge, flank pain, nausea, vomiting, or diarrhea. 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 King. The patient is using implant for control. Allergies and Home Medications Allergies Coded Allergies: hydrocodone (Verified Adverse Reaction, Mild, 09/10/14) Itching Home Medications Acetaminophen 325 Mg Tablet, 650 MG PO PRN, (Reported) Ondansetron 4 Mg Tab.rapdis, 4 MG SL Q4H PRN for NAUSEA/VOMITING-1ST LINE, #10 Prescribed by: MICHAEL BELTRÁN on 11/15/16 0432 Review of Systems Constitutional: No chills, No fever EENTM: No Blurred Vision Respiratory: Denies Cough Cardiovascular: Denies Chest Pain Gastrointestinal: Abdominal Pain Genitourinary: Denies Burning (left lower quadrant), Denies Drainage, Denies Flank Pain Musculoskeletal: No back pain Skin: No rash Psychiatric/Neurological: Denies Anxiety, Denies Depressed Endocrine: No Symptoms Reported Hematologic/Lymphatic: No Symptoms Reported Past Viqicnz-Adudeq-Frahog Hx Patient Social History Type Used: Cigarettes Former Smoker/When Quit: Jun 30, 2014 Recent Foreign Travel: No Contact w/Someone Who Travel: No Recent Hopitalizations: No Immunizations Up To Date Tetanus Booster (TDap): Less than 5yrs Seasonal Allergies Seasonal Allergies: No Surgeries HX Surgeries: Yes (R WRIST REPAIR SECONDARY TO DOG BITE, BMT'S X 4) Surgeries: Adenoidectomy, Section, Ear Surgery, Gallbladder, Orthopedic, Tonsillectomy Respiratory Hx Respiratory Disorders: Yes Respiratory Disorders: Asthma Cardiovascular Hx Cardiac Disorders: No Neurological Hx Neurological Disorders: No 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 System Hx 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 Disorders: 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 Genitourinary Hx Genitourinary Disorders: No Gastrointestinal Hx Gastrointestinal Disorders: No Gastrointestinal Disorders: Gall Bladder Disease Musculoskeletal Hx Musculoskeletal Disorders: No Endocrine Hx Endocrine Disorders: No HEENT HX ENT Disorders: Yes (BMT'S X 4 ) HEENT Disorders: Chronic Ear Infection Cancer Hx Cancer: No Psychosocial Hx Psychiatric Problems: Yes Behavioral Health Disorders: Anxiety Integumentary HX Skin/Integumentary Disorder: No Blood Transfusions Hx Blood Disorders: No Reviewed Nursing Assessment Reviewed/Agree w Nursing PMH: Yes Family Medical History Significant Family History: No Pertinent Family Hx Physical Exam Vital Signs VS - Last 72 Hours, by Label 11/17/16 11/17/16 14:34 15:34 Temp 97.5 97.5 Pulse 70 Resp 16 B/P (MAP) 112/70 Pulse Ox 98 Capillary Refill : General Appearance: WD/WN HEENT: normal ENT inspection Neck: normal inspection Respiratory: chest non-tender, lungs clear, normal breath sounds Cardiovascular: normal peripheral pulses, regular rate, rhythm, no edema Gastrointestinal: normal bowel sounds, tenderness (tenderness is noted in the left lower quadrant mild in severity) Extremities: normal range of motion, non-tender, normal inspection, no pedal edema Neurologic/Psychiatric: no motor/sensory deficits, alert, normal mood/affect, oriented x 3 Skin: normal color, warm/dry Progress/Results/Core Measures Results/Orders Lab Results Laboratory Tests Test 11/17/16 14:25 11/17/16 15:30 Range/Units Urine Color YELLOW Urine Clarity SLIGHTLY CLOUDY Urine pH 8 5-9 Urine Specific [place] 1.010 L 1.016-1.022 Urine Protein 1+ H NEGATIVE Urine Glucose (UA) NEGATIVE NEGATIVE Urine Ketones NEGATIVE NEGATIVE Urine Nitrite NEGATIVE NEGATIVE Urine Bilirubin NEGATIVE NEGATIVE Urine Urobilinogen NORMAL NORMAL MG/DL Urine Leukocyte Esterase 1+ H NEGATIVE Urine RBC (Auto) NEGATIVE NEGATIVE Urine RBC NONE /HPF Urine WBC 0-2 /HPF Urine Squamous Epithelial Cells 2-5 /HPF Urine Crystals PRESENT H /LPF Urine Amorphous Sediment MOD ROSARIO PHOSPHATE H /LPF Urine Bacteria NONE /HPF Urine Casts NONE /LPF Urine Mucus NEGATIVE /LPF Urine Culture Indicated NO Urine Test NEGATIVE NEGATIVE White Blood Count 9.9 4.3-11.0 10^3/uL Red Blood Count 4.63 4.35-5.85 10^6/uL Hemoglobin 13.2 11.5-16.0 G/DL Hematocrit 40 35-52 % Mean Corpuscular Volume 86 80-99 FL Mean Corpuscular Hemoglobin 29 25-34 PG Mean Corpuscular Hemoglobin Concent 33 32-36 G/DL Red Cell Distribution Width 13.5 10.0-14.5 % Platelet Count 312 130-400 10^3/uL Mean Platelet Volume 9.2 7.4-10.4 FL Neutrophils (%) (Auto) 58 42-75 % Lymphocytes (%) (Auto) 32 12-44 % Monocytes (%) (Auto) 8 0-12 % Eosinophils (%) (Auto) 1 0-10 % Basophils (%) (Auto) 1 0-10 % Neutrophils # (Auto) 5.8 1.8-7.8 X 10^3 Lymphocytes # (Auto) 3.1 1.0-4.0 X 10^3 Monocytes # (Auto) 0.8 0.0-1.0 X 10^3 Eosinophils # (Auto) 0.1 0.0-0.3 10^3/uL Basophils # (Auto) 0.1 0.0-0.1 10^3/uL My Orders Orders - JAMESON CAMACHO MD Ketorolac Injection (Toradol Injection) (11/17/16 14:30) Cbc With Automated Diff (11/17/16 14:29) Ua Culture If Indicated (11/17/16 14:29) Hcg,Qualitative Urine (11/17/16 14:36) Us Non Ob Transvaginal [id number] (11/17/16 14:29) Fentanyl Injection (Sublimaze Injection (11/17/16 16:30) Medications Given in ED Current Medications Medications Dose Ordered Sig/Param Route Start Time Stop Time Status Last Admin Dose Admin Ketorolac Tromethamine 30 mg ONCE ONCE IVP 11/17/16 14:30 11/17/16 14:32 DC 11/17/16 15:34 30 MG Vital Signs/I&O Vital Sign - Last 12Hours 11/17/16 11/17/16 14:34 15:34 Temp 97.5 97.5 Pulse 70 Resp 16 B/P (MAP) 112/70 Pulse Ox 98 Progress Note : Time: 16:34 Progress Note The patient was moderately improved with IV Toradol. Her ultrasound of the pelvis demonstrated a small ovarian cyst. The remainder of the patient's evaluation was unremarkable. I discussed findings with patient. She is agreeable to following up closely with her physician on Sunday. She requested Ultram for pain. I asked that she return the emergency Department showed a further problems or questions. Departure Impression Impression: Primary Impression: Ovarian cyst Qualified Codes: N83.202 - Unspecified ovarian cyst, left side Disposition: HOME, SELF-CARE Condition: Improved Departure-Patient Inst. Decision time for Depature: 16:35 Referrals: SERGE KING MD (PCP/Family) Primary Care Physician Patient Instructions: Ovarian Cyst (DC) Add. Discharge Instructions: Ultram for pain." Dr. King next week. Return for any problems. All discharge instructions reviewed with patient and/or family. Voiced understanding. JAMESON CAMACHO MD November 17, 2016 14:36
[2016-11-17 15:04] LABS: BILIRUBIN,URINE NEGATIVE (NEGATIVE); KETONES,URINE NEGATIVE (NEGATIVE); LEUKOCYTE ESTERASE ,URINE 1+ (NEGATIVE); NITRITE,URINE NEGATIVE (NEGATIVE); PH,URINE 8 (5-9); PROTEIN,URINE 1+ (NEGATIVE); UROBILINOGEN,URINE NORMAL (NORMAL)
[2016-11-17 15:12] LABS: WBC,URINE 0-2 /HPF
[2016-11-17 15:40] LABS: BASOPHILS # (AUTO) 0.1 10^3/uL (0.0-0.1); BASOPHILS % (AUTO) 1 % (0-10); EOSINOPHILS # (AUTO) 0.1 10^3/uL (0.0-0.3); EOSINOPHILS % (AUTO) 1 % (0-10); LYMPHOCYTES # (AUTO) 3.1 X 10^3 (1.0-4.0); LYMPHOCYTES % (AUTO) 32 % (12-44); MEAN CORPUSCULAR HEMOGLOBIN 29 PG (25-34); MEAN CORPUSCULAR HGB CONC 33 G/DL (32-36); MEAN CORPUSCULAR VOLUME 86 FL (80-99); MEAN PLATELET VOLUME 9.2 FL (7.4-10.4); MONOCYTES # (AUTO) 0.8 X 10^3 (0.0-1.0); MONOCYTES % (AUTO) 8 % (0-12); NEUTROPHILS # (AUTO) 5.8 X 10^3 (1.8-7.8); NEUTROPHILS % (AUTO) 58 % (42-75); PLATELET COUNT 312 10^3/uL (130-400); RED BLOOD COUNT 4.63 10^6/uL (4.35-5.85); RED CELL DISTRIBUTION WIDTH 13.5 % (10.0-14.5); WHITE BLOOD COUNT 9.9 10^3/uL (4.3-11.0)
[2016-11-17] MEDS ORDERED: fentaNYL INJECTION 100 MCG/2 ML AMP IVP ONE (16:30)
--- NOTE | 2016-11-17 16:33 | Diagnostic Imaging Report ---
INDICATION: Pelvic pain. EXAMINATION: Transabdominal and endovaginal pelvic sonogram. FINDINGS: The uterus measures 8.3 x 3.7 x 4.8 cm. The myometrium appears normal. The endometrium measures 5 mm in thickness and appears normal. The right ovary is not seen. The left ovary contains a small follicular cyst. IMPRESSION: Unremarkable pelvic sonogram. The right ovary was not located. Dictated by: Dictated on workstation # [id number]
[2016-11-17 16:45] VITALS: BP 116/72
== END 2016-11-17 16:50 | disposition home or self-care (01) ==
LOC: EDUNIT# 14:00 → ER 14:02
DX: R10.32 Left lower quadrant pain (principal); N83.202 Unspecified ovarian cyst, left side
CPT/HCPCS: 36415; 76830; 81000; 84703; 85025; 96374; 99282

== ENCOUNTER 2016-12-14 21:17 | Emergency (ER) | payer SELFPAY ==
[~2016-12-14] VITALS: Ht 165.1 cm; Wt 83.9 kg
[2016-12-14] MEDS ORDERED: CYCLOBENZAPRINE 10 MG (FLEXERIL) TAB PO STA (22:16)
--- NOTE | 2016-12-14 22:21 | ED Upper Extremity ---
General Chief Complaint: Upper Extremity Stated Complaint: RT SHOULDER PAIN/NUMBNESS Nursing Triage Note: PT TO ED W/ C/O RT SHOULDER PAIN ET NUMBNESS ONSET X1 WK. DENIES INJURY Nursing Sepsis Screen: No Definite Risk History of Present Illness Time seen by provider: 22:10 Initial Comments Evaluation for right neck and shoulder pain. She has tried taking Flexeril with minimal improvement. 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 because she had difficulty with lifting a patient Onset: other (1 week) Severity: mild Pain/Injury Location: right shoulder Method of Injury: unknown Modifying Factors: Improves With Pain Medication, Improves With Rest Allergies and Home Medications Allergies Coded Allergies: hydrocodone (Verified Adverse Reaction, Mild, 09/10/14) Itching Home Medications Acetaminophen 325 Mg Tablet, 650 MG PO PRN, (Reported) Ondansetron 4 Mg Tab.rapdis, 4 MG SL Q4H PRN for NAUSEA/VOMITING-1ST LINE, #10 Prescribed by: MICHAEL BELTRÁN on 11/15/16 0659 Constitutional: no symptoms reported, see HPI EENTM: no symptoms reported, see HPI Respiratory: no symptoms reported, see HPI Cardiovascular: no symptoms reported, see HPI Gastrointestinal: no symptoms reported, see HPI Genitourinary: no symptoms reported, see HPI Musculoskeletal: see HPI, joint pain (right shoulder), neck pain (right-sided) Skin: no symptoms reported, see HPI Psychiatric/Neurological: No Symptoms Reported, See HPI All Other Systems Reviewed Negative Unless Noted: Yes Past Bmcoktd-Eboyvs-Fyingv Hx Patient Social History Alcohol Use: Occasionally Uses Recreational Drug Use: No Smoking Status: Current Everyday Smoker Type Used: Cigarettes Former Smoker/When Quit: Jun 30, 2014 Recent Foreign Travel: No Contact w/Someone Who Travel: No Recent Infectious Disease Expo: No Recent Hopitalizations: No Immunizations Up To Date Tetanus Booster (TDap): Less than 5yrs Seasonal Allergies Seasonal Allergies: No Surgeries HX Surgeries: Yes (R WRIST REPAIR SECONDARY TO DOG BITE, BMT'S X 4) Surgeries: Adenoidectomy, Section, Ear Surgery, Gallbladder, Orthopedic, Tonsillectomy Respiratory Hx Respiratory Disorders: Yes Respiratory Disorders: Asthma Cardiovascular Hx Cardiac Disorders: No Neurological Hx Neurological Disorders: No 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 System 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 Genitourinary Hx Genitourinary Disorders: No Gastrointestinal Hx Gastrointestinal Disorders: No Gastrointestinal Disorders: Gall Bladder Disease Musculoskeletal Hx Musculoskeletal Disorders: No Endocrine Hx Endocrine Disorders: No HEENT HX ENT Disorders: Yes (BMT'S X 4 ) HEENT Disorders: Chronic Ear Infection Cancer Hx Cancer: No Psychosocial Hx Psychiatric Problems: Yes Behavioral Health Disorders: Anxiety Integumentary HX Skin/Integumentary Disorder: No Blood Transfusions Hx Blood Disorders: No Reviewed Nursing Assessment Reviewed/Agree w Nursing PMH: Yes Family Medical History Significant Family History: No Pertinent Family Hx Physical Exam Vital Signs Vital Sign - Last 12Hours 12/14/16 21:29 Temp 98.1 Pulse 77 Resp 20 B/P (MAP) 128/66 Pulse Ox 98 O2 Delivery Room Air Capillary Refill : Less Than 3 Seconds General Appearance: WD/WN, no apparent distress HEENT: PERRL/EOMI, normal ENT inspection, TMs normal, pharynx normal Neck: limited range of motion, No lymphadenopathy (R), No lymphadenopathy (L), tender lateral (right-sided), No tender midline, No thyromegaly, other ( tenderness through the right trapezius muscle, gentle palpation of the trapezius causes radicular symptoms into the right shoulder and right upper arm. No palpable masses noted in the right trapezius.) Cardiovascular: normal peripheral pulses, regular rate, rhythm, no edema, no murmur Respiratory: chest non-tender, lungs clear, normal breath sounds Shoulder: normal inspection, No bone tenderness, limited ROM (secondary to pain ), pain, soft tissue tenderness (posteriorly), No swelling Elbow/Forearm: normal inspection, non-tender, no evidence of injury, normal ROM , Right Neurologic/Tendon: normal sensation, normal motor functions, normal tendon functions Neurologic/Psychiatric: no motor/sensory deficits, alert, normal mood/affect, oriented x 3 Skin: normal color, warm/dry Progress/Results/Core Measures Results/Orders My Orders Orders - ARPITA GALVAN Cyclobenzaprine Tablet (Flexeril Tablet) (12/14/16 22:16) Tramadol Tablet (Ultram Tablet) (12/14/16 22:16) Vital Signs/I&O Vital Sign - Last 12Hours 12/14/16 21:29 Temp 98.1 Pulse 77 Resp 20 B/P (MAP) 128/66 Pulse Ox 98 O2 Delivery Room Air Blood Pressure Mean: 86 Departure Impression Impression: Primary Impression: Trapezius strain Qualified Codes: S46.811A - Strain of other muscles, fascia and tendons at shoulder and upper arm level, right arm, initial encounter Disposition: 01 HOME, SELF-CARE Condition: Stable Departure-Patient Inst. Referrals: NO,LOCAL PHYSICIAN (PCP) Primary Care Physician Patient Instructions: Neck Stretches, Muscle Strain (DC) Add. Discharge Instructions: Warm moist compresses to neck every 2 hours. Ibuprofen 600 mg every 8 hours Follow-up with Sarah Lopez APRN if symptoms don't improve in a few days. Return to emergency department if symptoms worsen or new problems. All discharge instructions reviewed with patient and/or family. Voiced understanding. ARPITA GALVAN Dec 14, 2016 22:21
[2016-12-14 22:23] VITALS: BP 0/0
== END 2016-12-14 22:33 | disposition home or self-care (01) ==
LOC: EDUNIT# 21:17 → ER 21:19
DX: S46.811A Strain of other muscles, fascia and tendons at shoulder and upper arm level, right arm, initial encounter (principal); X58.XXXA Exposure to other specified factors, initial encounter; J45.909 Unspecified asthma, uncomplicated; K82.9 Disease of gallbladder, unspecified; F17.210 Nicotine dependence, cigarettes, uncomplicated
CPT/HCPCS: 99282

== ENCOUNTER 2017-01-29 21:28 | Emergency (ER) | payer OTHER ==
[~2017-01-29] VITALS: Ht 160 cm; Wt 72.6 kg
--- NOTE | 2017-01-29 22:07 | ED Respiratory ---
General Chief Complaint: Respiratory Problems Stated Complaint: SOB Nursing Triage Note: PT TO ED TRIAGE PER EMS FOR C/O SOB ONSET EARLIER TODAY. PT REPORTS SHE HAD HER WISDOM TEETH PULLED X4 DAYS AGO ET IS ON AMOXIL ET HYDROCODONE SINCE W/O PROBLEM. PER PT'S FILE, PT IS ALLERGIC TO HYDROCODONE BUT STATES THE DENTIST TOLD HER TO GO AHEAD AND TAKE IT ANYWAY. NO DISTRESS OR DISCOMFORT NOTED AT THIS TIME. NO OTHER C/O VOICED Source: patient, EMS Exam Limitations: no limitations History of Present Illness Time seen by provider: 22:02 Initial Comments Patient reports she woke up this morning being short of breath with a nonproductive cough. She denies any fevers or chills nor sick contacts or travel outside the [facility]. She remarks she's had nausea and has taken Zofran for it. She had not Zofran because she recently was started on antibiotics amoxicillin for her wisdom teeth being pulled out late last week. She felt the Zofran was not helping at all. Her shortness of breath was accompanied by left arm numbness and tingling face tingling and feeling of anxiety. She denies any history of anxiety or depression. She is not on any other medicines besides Zofran and ibuprofen and [place] and amoxicillin. She has a distant history of asthma for which she has not used a nebulizer or breathing treatment in over 4 years. She denies any rash or upper respiratory symptoms of congestion and rhinorrhea ear fullness or popping. Allergies and Home Medications Allergies Coded Allergies: hydrocodone (Verified Adverse Reaction, Mild, 09/10/14) Itching Home Medications Acetaminophen 325 Mg Tablet, 650 MG PO PRN, (Reported) Albuterol Sulfate 1 Puff Puff, 2 PUFF IH Q4H PRN for WHEEZING for 14 Days, #1 Ref 0 1 PUFF = 90 MCG Prescribed by: LYUBOV BEVERLY on 01/29/17 2338 Azithromycin 250 Mg Tablet, 250 MG PO UD for 5 Days, #6 Ref 0 TAKE 2 TABLETS ON DAY ONE THEN TAKE 1 TABLET DAILY FOR FOUR MORE DAYS Prescribed by: LYUBOV BEVERLY on 01/29/17 2338 Ondansetron 4 Mg Tab.rapdis, 4 MG SL Q4H PRN for NAUSEA/VOMITING-1ST LINE, #10 Prescribed by: MICHAEL BELTRÁN on 11/15/16 2348 Constitutional: No chills, No diaphoresis EENTM: No ear pain, No eye pain, No nose congestion, No throat swelling Respiratory: see HPI, cough, No phlegm, short of breath, No wheezing Cardiovascular: No chest pain, No edema, No palpitations Gastrointestinal: No abdominal pain, No constipation, No diarrhea, No nausea Genitourinary: No discharge, No dysuria : No (serum test negative) Musculoskeletal: No back pain, No joint pain Skin: No pruritus, No rash Psychiatric/Neurological: Denies Headache, Denies Numbness Past Kvvyflf-Jsdyiy-Ppgrbm Hx Patient Social History Alcohol Use: Occasionally Uses Recreational Drug Use: No Smoking Status: Current Everyday Smoker Type Used: Cigarettes Former Smoker/When Quit: Jun 30, 2014 Recent Foreign Travel: No Contact w/Someone Who Travel: No Recent Infectious Disease Expo: No Recent Hopitalizations: No Immunizations Up To Date Tetanus Booster (TDap): Less than 5yrs Seasonal Allergies Seasonal Allergies: No Surgeries HX Surgeries: Yes (R WRIST REPAIR SECONDARY TO DOG BITE, BMT'S X 4) Surgeries: Adenoidectomy, Section, Ear Surgery, Gallbladder, Orthopedic, Tonsillectomy Respiratory Hx Respiratory Disorders: Yes Respiratory Disorders: Asthma Cardiovascular Hx Cardiac Disorders: No Neurological Hx Neurological Disorders: No 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 System Hx 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 Genitourinary Hx Genitourinary Disorders: No Gastrointestinal Hx Gastrointestinal Disorders: No Gastrointestinal Disorders: Gall Bladder Disease Musculoskeletal Hx Musculoskeletal Disorders: No Endocrine Hx Endocrine Disorders: No HEENT HX ENT Disorders: Yes (BMT'S X 4 ) HEENT Disorders: Chronic Ear Infection Cancer Hx Cancer: No Psychosocial Hx Psychiatric Problems: Yes Behavioral Health Disorders: Anxiety Integumentary HX Skin/Integumentary Disorder: No Blood Transfusions Hx Blood Disorders: No Family Medical History Significant Family History: No Pertinent Family Hx Physical Exam Vital Signs Vital Sign - Last 12Hours 01/29/17 21:33 Temp 97.6 Pulse 87 Resp 20 B/P (MAP) 118/76 Pulse Ox 97 O2 Delivery Room Air Capillary Refill : Less Than 3 Seconds General Appearance: WD/WN, no apparent distress Eyes: Bilateral Eye EOMI, Bilateral Eye Normal Inspection, Bilateral Eye PERRL HEENT: PERRL/EOMI, normal ENT inspection, TMs normal, pharynx normal Neck: non-tender, supple, normal inspection Respiratory: chest non-tender, lungs clear, normal breath sounds, no respiratory distress, no accessory muscle use, decreased breath sounds ( bilaterally) Cardiovascular: normal peripheral pulses, regular rate, rhythm Gastrointestinal: normal bowel sounds, non tender, soft Extremities: non-tender, normal inspection, no pedal edema, normal capillary refill Neurologic/Psychiatric: alert, oriented x 3 Skin: normal color, warm/dry Lymphatic: no adenopathy Progress/Results/Core Measures Results/Orders Lab Results Laboratory Tests Test 01/29/17 22:50 Range/Units White Blood Count 7.1 4.3-11.0 10^3/uL Red Blood Count 4.57 4.35-5.85 10^6/uL Hemoglobin 13.3 11.5-16.0 G/DL Hematocrit 40 35-52 % Mean Corpuscular Volume 87 80-99 FL Mean Corpuscular Hemoglobin 29 25-34 PG Mean Corpuscular Hemoglobin Concent 33 32-36 G/DL Red Cell Distribution Width 12.6 10.0-14.5 % Platelet Count 273 130-400 10^3/uL Mean Platelet Volume 9.1 7.4-10.4 FL Neutrophils (%) (Auto) 60 42-75 % Lymphocytes (%) (Auto) 29 12-44 % Monocytes (%) (Auto) 9 0-12 % Eosinophils (%) (Auto) 1 0-10 % Basophils (%) (Auto) 0 0-10 % Neutrophils # (Auto) 4.3 1.8-7.8 X 10^3 Lymphocytes # (Auto) 2.1 1.0-4.0 X 10^3 Monocytes # (Auto) 0.7 0.0-1.0 X 10^3 Eosinophils # (Auto) 0.1 0.0-0.3 10^3/uL Basophils # (Auto) 0.0 0.0-0.1 10^3/uL Sodium Level 139 135-145 MMOL/L Potassium Level 3.4 L 3.6-5.0 MMOL/L Chloride Level 108 H 98-107 MMOL/L Carbon Dioxide Level 20 L 21-32 MMOL/L Anion Gap 11 5-14 MMOL/L Blood Urea Nitrogen 7 7-18 MG/DL Creatinine 0.84 0.60-1.30 MG/DL Estimat Glomerular Filtration Rate > 60 BUN/Creatinine Ratio 8 Glucose Level 89 70-105 MG/DL Calcium Level 9.2 8.5-10.1 MG/DL Total Bilirubin 0.6 0.1-1.0 MG/DL Aspartate Amino Transf (AST/SGOT) 12 5-34 U/L Alanine Aminotransferase (ALT/SGPT) 13 0-55 U/L Alkaline Phosphatase 75 40-136 U/L Total Protein 7.0 6.4-8.2 GM/DL Albumin 4.2 3.2-4.5 GM/DL Serum Test, Qualitative NEGATIVE NEGATIVE My Orders Orders - LYUBOV BEVERLY Chest Pa/Lat (2 View) (01/29/17 22:07) Cbc With Automated Diff (01/29/17 22:07) Comprehensive Metabolic Panel (01/29/17 22:07) Albuterol/Ipra Inhalation Soln (Duoneb I (01/29/17 22:15) Hcg,Qualitative Serum (01/29/17 22:07) Svn Sm Volume Nebulizer Rt-Rfs (01/29/17 22:07) Ibuprofen Tablet (Motrin Tablet) (01/29/17 23:45) Medications Given in ED Current Medications Medications Dose Ordered Sig/Param Route Start Time Stop Time Status Last Admin Dose Admin Albuterol/ Ipratropium 3 ml ONCE ONCE INH 01/29/17 22:15 01/29/17 22:16 DC 01/29/17 22:21 3 ML Ibuprofen 600 mg ONCE ONCE PO 01/29/17 23:45 01/29/17 23:46 DC 01/29/17 23:46 600 MG Vital Signs/I&O Vital Sign - Last 12Hours 01/29/17 01/29/17 01/29/17 21:33 22:21 23:49 Temp 97.6 Pulse 87 91 Resp 20 20 B/P (MAP) 118/76 Pulse Ox 97 99 O2 Delivery Room Air Room Air Room Air Blood Pressure Mean: 90 Diagnostic Imaging Diagonstic Imaging: Xray Plain Films/CT/US/NM/MRI: chest Comments No acute cardiopulmonary processes noted. Reviewed: Reviewed by Me Departure Impression Impression: Primary Impression: Bronchitis Disposition: 01 HOME, SELF-CARE Condition: Stable Departure-Patient Inst. Decision time for Depature: 23:36 Referrals: NO,LOCAL PHYSICIAN (PCP) Primary Care Physician SERGE BERGMAN MD (Family) Primary Care Physician Patient Instructions: Acute Bronchitis, Adult (DC) Add. Discharge Instructions: Drink plenty of fluids. If you're having fever or headache you can take Tylenol 1000 g every 8 hours. You can also use Motrin. Have you take the albuterol inhaler every 4 hours 2 puffs for wheezing or shortness of breath. If your symptoms are not getting better in 5-7 days you should follow up with your primary care physician. 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 All discharge instructions reviewed with patient and/or family. Voiced understanding. Scripts Azithromycin (Azithromycin) 250 Mg Tablet 250 MG PO UD for 5 Days, #6 TAB 0 Refills TAKE 2 TABLETS ON DAY ONE THEN TAKE 1 TABLET DAILY FOR FOUR MORE DAYS Prov: LYUBOV BEVERLY 01/29/17 Albuterol Sulfate (VENTOLIN HFA) 1 Puff Puff 2 PUFF IH Q4H Y for WHEEZING for 14 Days, #1 PUFF 0 Refills 1 PUFF = 90 MCG Prov: LYUBOV BEVERLY 01/29/17 LYUBOV BEVERLY Jan 29, 2017 22:07
[2017-01-29] MEDS ORDERED: RT-ALBUTEROL/IPRATROPIUM 3 ML (DUONEB) VIAL INH ONE (22:15)
[2017-01-29 22:57] LABS: BASOPHILS % (AUTO) 0 % (0-10); EOSINOPHILS # (AUTO) 0.1 10^3/uL (0.0-0.3); EOSINOPHILS % (AUTO) 1 % (0-10); LYMPHOCYTES # (AUTO) 2.1 X 10^3 (1.0-4.0); LYMPHOCYTES % (AUTO) 29 % (12-44); MEAN CORPUSCULAR HEMOGLOBIN 29 PG (25-34); MEAN CORPUSCULAR HGB CONC 33 G/DL (32-36); MEAN CORPUSCULAR VOLUME 87 FL (80-99); MEAN PLATELET VOLUME 9.1 FL (7.4-10.4); MONOCYTES # (AUTO) 0.7 X 10^3 (0.0-1.0); MONOCYTES % (AUTO) 9 % (0-12); NEUTROPHILS # (AUTO) 4.3 X 10^3 (1.8-7.8); NEUTROPHILS % (AUTO) 60 % (42-75); PLATELET COUNT 273 10^3/uL (130-400); RED BLOOD COUNT 4.57 10^6/uL (4.35-5.85); RED CELL DISTRIBUTION WIDTH 12.6 % (10.0-14.5); WHITE BLOOD COUNT 7.1 10^3/uL (4.3-11.0)
[2017-01-29 23:19] LABS: ALANINE AMINOTRANSFERASE 13 U/L (0-55); ALBUMIN 4.2 GM/DL (3.2-4.5); ANION GAP 11 MMOL/L (5-14); ASPARTATE AMINO TRANSFERASE 12 U/L (5-34); BILIRUBIN,TOTAL 0.6 MG/DL (0.1-1.0); BLOOD UREA NITROGEN 7 MG/DL (7-18); BUN/CREATININE RATIO 8; CALCIUM 9.2 MG/DL (8.5-10.1); CARBON DIOXIDE 20 MMOL/L (21-32); CHLORIDE 108 MMOL/L (98-107); CREATININE SERUM 0.84 MG/DL (0.60-1.30); GFR ESTIMATED > 60; GLUCOSE 89 MG/DL (70-105); POTASSIUM 3.4 MMOL/L (3.6-5.0); SODIUM 139 MMOL/L (135-145)
[2017-01-29] MEDS ORDERED: RT-ALBUINH IH (23:38)
[2017-01-29] MEDS ORDERED: AZIT250T5 PO (23:38)
[2017-01-29] MEDS ORDERED: IBUPROFEN 600 MG (MOTRIN) TAB PO ONE (23:45)
[2017-01-29 23:49] VITALS: BP 128/81
--- NOTE | 2017-01-30 08:43 | Diagnostic Imaging Report ---
INDICATION: Shortness of breath. COMPARISON: 07/27/2015. FINDINGS: Two views of the chest were obtained. The heart size is normal. The pulmonary vessels appear unremarkable. There is no pneumothorax, mediastinal widening, or pleural fluid demonstrated. The lungs are clear. The osseous structures appear unremarkable. IMPRESSION: Negative chest. Dictated by: Dictated on workstation # [id number]
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
== END 2017-01-29 23:49 | disposition home or self-care (01) ==
LOC: EDUNIT# 21:28 → ER 21:30
DX: J40 Bronchitis, not specified as acute or chronic (principal); J45.909 Unspecified asthma, uncomplicated; F41.9 Anxiety disorder, unspecified; F17.210 Nicotine dependence, cigarettes, uncomplicated
CPT/HCPCS: 36415; 71020; 80053; 84703; 85025; 94640; 99283

== ENCOUNTER 2017-03-15 19:42 | Emergency (ER) | payer OTHER ==
[~2017-03-15 19:42] MED LIST changes: +RT-ALBUINH IH
== END 2017-03-15 20:00 | disposition left against medical advice (07) ==
LOC: EDUNIT# 19:42 → ER 19:43
DX: R21 Rash and other nonspecific skin eruption (principal)

== ENCOUNTER 2017-05-05 12:13 | Emergency (ER) | payer SELFPAY ==
[~2017-05-05] VITALS: Ht 165.1 cm; Wt 84.4 kg
[2017-05-05] MEDS ORDERED: KETOROLAC 60 MG/2 ML VIAL IM ONE (12:30)
--- NOTE | 2017-05-05 12:32 | ED Back Pain ---
General Chief Complaint: Back Problems Stated Complaint: R HIP PAIN, LEG NUMBNESS Source of Information: Patient Exam Limitations: No Limitations History of Present Illness Time Seen by Provider: 12:25 Initial Comments This 21-year-old white female presents with a complaint of right low back and hip pain that began today. The patient denies trauma to the area, flank pain, dysuria frequency or hematuria, Patient denies previous injury to her low back. Allergies and Home Medications Allergies Coded Allergies: hydrocodone (Verified Adverse Reaction, Mild, 09/10/14) Itching Home Medications Acetaminophen 325 Mg Tablet, 650 MG PO PRN, (Reported) Albuterol Sulfate 1 Puff Puff, 2 PUFF IH Q4H PRN for WHEEZING for 14 Days, #1 Ref 0 1 PUFF = 90 MCG Prescribed by: LYUBOV BEVRELY on 01/29/17 2338 Azithromycin 250 Mg Tablet, 250 MG PO UD for 5 Days, #6 Ref 0 TAKE 2 TABLETS ON DAY ONE THEN TAKE 1 TABLET DAILY FOR FOUR MORE DAYS Prescribed by: LYUBOV BEVERLY on 01/29/17 2338 Ondansetron 4 Mg Tab.rapdis, 4 MG SL Q4H PRN for NAUSEA/VOMITING-1ST LINE, #10 Prescribed by: MICHAEL BELTRÁN on 11/15/16 2348 Constitutional: No chills, No fever EENTM: No ear pain Respiratory: No cough Cardiovascular: No chest pain Gastrointestinal: No abdominal pain, No diarrhea, No nausea, No vomiting Genitourinary: No decreased output, No dysuria, No frequency, No hematuria Musculoskeletal: see HPI, back pain, joint pain (right hip) Skin: No change in color, No rash Psychiatric/Neurological: No Symptoms Reported Past Uwhysdv-Axazfn-Urefxi Hx Patient Social History Type Used: Cigarettes Recent Foreign Travel: No Contact w/Someone Who Travel: No Recent Hopitalizations: No Immunizations Up To Date Tetanus Booster (TDap): Less than 5yrs Seasonal Allergies Seasonal Allergies: No Surgeries History of Surgeries: Yes (R WRIST REPAIR SECONDARY TO DOG BITE, BMT'S X 4, DENTAL) Surgeries: Adenoidectomy, Section, Ear Surgery, Gallbladder, Orthopedic, Tonsillectomy Respiratory History of Respiratory Disorde: Yes Respiratory Disorders: Asthma Cardiovascular History of Cardiac Disorders: No Neurological History of Neurological Disord: No 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 System Hx 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 Disorders: No [employer] History: IUD Gastrointestinal History of Gastrointestinal Di: No Gastrointestinal Disorders: Gall Bladder Disease Musculoskeletal History of Musculoskeletal Dis: No Endocrine History of Endocrine Disorders: No HEENT History of HEENT Disorders: Yes HEENT Disorders: Chronic Ear Infection Cancer History of Cancer: No Psychosocial History of Psychiatric Problem: Yes Behavioral Health Disorders: Anxiety Integumentary History of Skin or Integumenta: No Blood Transfusions History of Blood Disorders: No Reviewed Nursing Assessment Reviewed/Agree w Nursing PMH: Yes Family Medical History Significant Family History: No Pertinent Family Hx Physical Exam Vital Signs Vital Sign - Last 12Hours 05/05/17 12:20 Temp 98.6 Pulse 98 Resp 16 B/P (MAP) 139/67 Pulse Ox 100 O2 Delivery Room Air Capillary Refill : General Appearance: No Apparent Distress, WD/WN HEENT: TMs Normal Neck: Normal Inspection Cardiovascular: Regular Rate, Rhythm Respiratory: Chest Non Tender Gastrointestinal: Normal Bowel Sounds Back: Normal Inspection, Vertebral Tenderness (over the lumbar region.) Extremity: Normal Capillary Refill, Normal Inspection, Other (there is tenderness palpation of the right hip as well as some pain with active motion of the right hip.) Neurologic/Psychiatric: Oriented x3, No Motor/Sensory Deficits, Normal Mood/ Affect Skin: Normal Color, Warm/Dry Progress/Results/Core Measures Results/Orders My Orders Orders - JAMESON CAMACHO MD Lumbar Spine - 2-3 Views (05/05/17 12:23) Hip, Right, 2 Views (05/05/17 12:23) Ketorolac Injection (Toradol Injection) (05/05/17 12:30) Medications Given in ED Current Medications Medications Dose Ordered Sig/Param Route Start Time Stop Time Status Last Admin Dose Admin Ketorolac Tromethamine 60 mg ONCE ONCE IM 05/05/17 12:30 05/05/17 12:31 DC 05/05/17 12:31 60 MG Vital Signs/I&O Vital Sign - Last 12Hours 05/05/17 05/05/17 12:20 12:31 Temp 98.6 98.6 Pulse 98 Resp 16 B/P (MAP) 139/67 Pulse Ox 100 O2 Delivery Room Air Progress Note : Time: 12:35 Progress Note Patient was treated with 60 mg of ketorolac IM. LS-spine and right hip films were ordered. 12:52 pm X-rays are unremarkable. I reassured the patient. I will prescribe more Toradol and Flexeril for her. I asked that she follow up with her doctor on Sunday for further evaluation and return in interim if any problems or questions. Departure Impression Impression: Primary Impression: Lumbar radiculopathy Disposition: HOME, SELF-CARE Condition: Improved Departure-Patient Inst. Decision time for Depature: 12:53 Referrals: TONG HAYDEN (PCP) Primary Care Physician Patient Instructions: Low Back Pain (DC) Add. Discharge Instructions: Toradol and Flexeril as prescribed. Ice and heat to the low back and right hip. Close follow-up with her doctor Sunday. Return if any problems. All discharge instructions reviewed with patient and/or family. Voiced understanding. JAMESON CAMACHO MD May 05, 2017 12:32
--- NOTE | 2017-05-05 12:45 | Diagnostic Imaging Report ---
INDICATION: Low back pain. Right hip pain 3 views of the lumbar spine show normal height and alignment of the vertebral bodies. Disc spaces are well-maintained. There is no spondylosis. There is no fracture. IMPRESSION: Normal lumbar spine. Dictated by: Dictated on workstation # [id number]
--- NOTE | 2017-05-05 12:48 | Diagnostic Imaging Report ---
INDICATION: Right hip pain 2 views of the right hip shows no fracture, dislocation or other abnormality. IMPRESSION: Normal right hip. Dictated by: Dictated on workstation # [id number]
[2017-05-05 12:59] VITALS: BP 139/67
== END 2017-05-05 12:59 | disposition home or self-care (01) ==
LOC: EDUNIT# 12:13 → ER 12:15
DX: M54.16 Radiculopathy, lumbar region (principal); F41.9 Anxiety disorder, unspecified; J45.909 Unspecified asthma, uncomplicated; Z90.89 Acquired absence of other organs; Z87.19 Personal history of other diseases of the digestive system; Z97.5 Presence of (intrauterine) contraceptive device
CPT/HCPCS: 72100; 73502; 99284

== ENCOUNTER 2017-07-10 16:13 | Emergency (ER) | payer SELFPAY ==
[~2017-07-10] VITALS: Ht 165.1 cm; Wt 78.9 kg
[~2017-07-10 16:13] MED LIST changes: +AZIT250T12 PO; -AZIT250T5 PO
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
[2017-07-10 17:11] LABS: BILIRUBIN,URINE NEGATIVE (NEGATIVE); CLARITY,URINE CLEAR; COLOR,URINE YELLOW; GLUCOSE, URINE (UA) NEGATIVE (NEGATIVE); KETONES,URINE NEGATIVE (NEGATIVE); LEUKOCYTE ESTERASE ,URINE 1+ (NEGATIVE); NITRITE,URINE NEGATIVE (NEGATIVE); PH,URINE 7 (5-9); PROTEIN,URINE NEGATIVE (NEGATIVE); UROBILINOGEN,URINE NORMAL (NORMAL)
[2017-07-10] MEDS ORDERED: DEXAMETHASONE PF 10 MG/ML (DECADRON) VIAL IV STA (17:13)
[2017-07-10] MEDS ORDERED: diphenhydrAMINE 50 MG/ML INJ (BENADRYL) IV STA (17:13)
[2017-07-10] MEDS ORDERED: NS IV 1000 ML 1,000 ML IV STA (17:13)
[2017-07-10] MEDS ORDERED: ONDANSETRON 4 MG/2 ML (SDV) Z0FRAN IVP ONE (17:15)
[2017-07-10] MEDS ORDERED: DEXAMETHASONE 10 MG/ML (DECADRON) 1 ML VIAL ONE (17:22)
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
[2017-07-10 17:31] LABS: BACTERIA,URINE FEW /HPF
[2017-07-10] MEDS ORDERED: SUMA25TA3 PO (18:33)
[2017-07-10 18:50] VITALS: BP 123/78
== END 2017-07-10 18:50 | disposition home or self-care (01) ==
LOC: EDUNIT# 16:13 → ER 16:15
DX: G43.909 Migraine, unspecified, not intractable, without status migrainosus (principal); J45.909 Unspecified asthma, uncomplicated; F41.9 Anxiety disorder, unspecified; F17.210 Nicotine dependence, cigarettes, uncomplicated; Z97.5 Presence of (intrauterine) contraceptive device; Z90.89 Acquired absence of other organs; Z87.59 Personal history of other complications of pregnancy, childbirth and the puerperium
CPT/HCPCS: 81000; 84703

== ENCOUNTER 2017-07-19 13:37 | Emergency (ER) | payer SELFPAY ==
[~2017-07-19 13:37] MED LIST changes: +SUMA25TA3 PO
== END 2017-07-19 14:14 | disposition left against medical advice (07) ==
LOC: EDUNIT# 13:37 → ER 13:39
DX: J11.1 Influenza due to unidentified influenza virus with other respiratory manifestations (principal)

== ENCOUNTER 2017-07-21 22:04 | Emergency (ER) | payer SELFPAY ==
[~2017-07-21] VITALS: Ht 165.1 cm; Wt 78.9 kg
[2017-07-22] MEDS ORDERED: LIDOCAINE 1% INJ 20 ML (XYLOCAINE) VIAL INJ STA (00:24)
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
[2017-07-22] MEDS ORDERED: PERM324. MC (01:13)
[2017-07-22 01:30] VITALS: BP 130/84
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
== END 2017-07-22 01:20 | disposition home or self-care (01) ==
LOC: EDUNIT# 22:04 → ER 22:06
DX: S09.90XA Unspecified injury of head, initial encounter (principal); S01.511A Laceration without foreign body of lip, initial encounter; F41.9 Anxiety disorder, unspecified; J45.909 Unspecified asthma, uncomplicated; Z90.89 Acquired absence of other organs; Z87.59 Personal history of other complications of pregnancy, childbirth and the puerperium; Z87.19 Personal history of other diseases of the digestive system; Z97.5 Presence of (intrauterine) contraceptive device; Y04.8XXA Assault by other bodily force, initial encounter; Y92.511 Restaurant or cafe as the place of occurrence of the external cause
CPT/HCPCS: 70450; 70486; 72125; 99282

== ENCOUNTER 2017-09-28 13:30 | Emergency (ER) | payer SELFPAY ==
[~2017-09-28] VITALS: Ht 165.1 cm; Wt 79.4 kg
[~2017-09-28 13:30] MED LIST changes: +PERM324. MC
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
[2017-09-28] MEDS ORDERED: MELO-170 PO (17:45)
--- NOTE | 2017-09-28 17:46 | ED Lower Extremity ---
General Chief Complaint: Lower Extremity Stated Complaint: LT KNEE SWOLLEN AND BRUISED,PAIN AND BACK PAIN Nursing Triage Note: Pt reports she was bowling on Sunday when L knee gave out and she fell. Pt reports swelling and bruising to L knee. Nursing Sepsis Screen: No Definite Risk Source: patient Exam Limitations: no limitations History of Present Illness Date Seen by Provider: Sep 28, 2017 Time Seen by Provider: 16:38 Initial Comments PT ARRIVES VIA POV --AMBULATES IN ON HER OWN WITH SLIGHT LIMP ON LEFT C/O LEFT KNEE PAIN STATES SHE WAS BOWLING THE NIGHT BEFORE LAST AND TWISTED HER LEFT KNEE AND IT "GAVE OUT" --DID NOT ACTUALLY FALL OR HAVE DIRECT TRAUMA TO KNEE. YESTERDAY, NOTICED HER KNEE WAS "BLACK AND BLUE AND SWOLLEN" AND TODAY "THE PAIN IS UNBELIEVABLE" AND RADIATES UP TO LEFT LATERAL HIP "AND ALL THE WAY ACROSS MY PELVIS" TO THE RIGHT SIDE NO PARESTHESIAS OR MOTOR DEFICITS TOOK IBUPROFEN AND ALEVE X 1 TODAY--NO RELIEF NO PRIOR PROBLEMS WITH THIS KNEE PCP: LUIS A HAYDEN AT [facility] Allergies and Home Medications Allergies Coded Allergies: hydrocodone (Verified Adverse Reaction, Mild, 07/21/17) Itching Home Medications Acetaminophen 325 Mg Tablet, 650 MG PO PRN, (Reported) Albuterol Sulfate 1 Puff Puff, 2 PUFF IH Q4H PRN for WHEEZING 1 PUFF = 90 MCG Prescribed by: LYUBOV BEVERLY on 01/29/172337 Azithromycin 250 Mg Tablet, 250 MG PO UD TAKE 2 TABLETS ON DAY ONE THEN TAKE 1 TABLET DAILY FOR FOUR MORE DAYS Prescribed by: LYUBOV BEVERLY on 01/29/172337 Meloxicam 7.5 Mg Tablet, 7.5 MG PO DAILY Prescribed by: ANDREY KAY on 09/28/17 1745 Ondansetron 4 Mg Tab.rapdis, 4 MG SL Q4H PRN for NAUSEA/VOMITING-1ST LINE Prescribed by: MICHAEL BELTRÁN on 11/15/16 2348 Permethrin 324.86 Ml Combo..pkg, 324.86 ML MC UD Prescribed by: JOMAR HANNON on 07/22/17 0113 Sumatriptan Succinate 25 Mg Tablet, 25 MG PO [id number] PRN for MIGRAINE May repeat medicine every 2 hours, limit 300 mg/24 hours. Prescribed by: ARPITA GALVAN on 07/10/17 1833 Patient Home Medication List Home Medication List Reviewed: Yes Constitutional: no symptoms reported : No (LMP-UNKNOWN, BUT HAS HAD NEXPLANON IN FOR A COUPLE OF YEARS) Control/STD Prophylaxis: Other (NEXPLANON) Musculoskeletal: see HPI Skin: no symptoms reported Psychiatric/Neurological: No Symptoms Reported Past Kzrszht-Ipkfxg-Gaxdnv Hx Patient Social History Alcohol Use: Rarely Uses Recreational Drug Use: No Smoking Status: Current Everyday Smoker Type Used: Cigarettes 2nd Hand Smoke Exposure: No Recent Foreign Travel: No Contact w/Someone Who Travel: No Recent Infectious Disease Expo: No Recent Hopitalizations: No Physical Abuse: No Sexual Abuse: No Immunizations Up To Date Tetanus Booster (TDap): Less than 5yrs Seasonal Allergies Seasonal Allergies: No Surgeries History of Surgeries: Yes (R WRIST REPAIR SECONDARY TO DOG BITE, BMT'S X 4, DENTAL) Surgeries: Adenoidectomy, Section, Ear Surgery, Gallbladder, Orthopedic, Tonsillectomy Respiratory History of Respiratory Disorde: Yes Respiratory Disorders: Asthma Cardiovascular History of Cardiac Disorders: No Neurological History of Neurological Disord: No 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 System : No (NEXPLANON) Hx 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 Disorders: No Gastrointestinal History of Gastrointestinal Di: Yes Gastrointestinal Disorders: Gall Bladder Disease Musculoskeletal History of Musculoskeletal Dis: No Endocrine History of Endocrine Disorders: No HEENT History of HEENT Disorders: Yes HEENT Disorders: Chronic Ear Infection Cancer History of Cancer: No Psychosocial History of Psychiatric Problem: Yes Behavioral Health Disorders: Anxiety Suicide Risk Score: 0 Integumentary History of Skin or Integumenta: No Blood Transfusions History of Blood Disorders: No Family Medical History Significant Family History: No Pertinent Family Hx Physical Exam Vital Signs Vital Signs - First Documented 09/28/17 14:50 Temp 98.4 Pulse 93 Resp 18 B/P (MAP) 123/57 (79) Pulse Ox 97 O2 Delivery Room Air Capillary Refill : Less Than 3 Seconds General Appearance: WD/WN, no apparent distress, other (SMLIING, TALKATIVE, DOES NOT APPEAR TO BE IN ANY DISCOMFORT. WALKS IN ON HER OWN WITH SLIGHT LIMP ON LEFT) Hips: bilateral hip non-tender, bilateral hip normal inspection, bilateral hip normal range of motion, bilateral hip no evidence of injury Legs: bilateral leg non-tender, bilateral leg normal inspection, bilateral leg normal range of motion, bilateral leg no evidence of injury Knees: right knee normal inspection, left knee other (TENDERNESS TO MEDIAL ASPECT OF LEFT KNEE, VERY SLIGHT SWELLING MEDIALLY, WITH 2-3 OLD BRUISES--DIME- SIZED AND BROWN/HERNANDEZ IN COLOR) Ankles: bilateral ankle non-tender, bilateral ankle normal inspection, bilateral ankle normal range of motion, bilateral ankle no evidence of injury Feet: bilateral foot non-tender, bilateral foot normal inspection, bilateral foot normal range of motion, bilateral foot no evidence of injury Neurologic/Tendon: normal sensation, normal motor functions, normal tendon functions Neurologic/Psychiatric: strip deburrer II-XII nml as tested, no motor/sensory deficits, alert, normal mood/affect, oriented x 3 Skin: normal color, warm/dry, ecchymosis Splinting and Joint Reduction : Herve wrap: Yes Immobilizers: 19 inch Knee Ordered: Crutches Progress/Results/Core Measures Results/Orders My Orders Orders - ANDREY KAY DO Knee, Left, 3 Views (09/28/17 16:46) Herve Bandage (09/28/17 17:39) Crutches (09/28/17 17:39) Knee Immobilizer (09/28/17 17:39) Vital Signs/I&O Vital Sign - Last 12Hours 09/28/17 09/28/17 14:50 17:54 Temp 98.4 98.4 Pulse 93 93 Resp 18 18 B/P (MAP) 123/57 (79) 123/57 (79) Pulse Ox 97 97 O2 Delivery Room Air Blood Pressure Mean: 79 Diagnostic Imaging Comments XRAYS LEFT KNEE--SMALL JOINT EFFUSION, OTHERWISE NO ACUTE BONY INJURY--PER RADIOLOGIST REPORT AT 1737 Reviewed: Reviewed by Me Departure Impression Impression: Primary Impression: Left knee sprain Disposition: 01 HOME, SELF-CARE Condition: Stable Departure-Patient Inst. Referrals: TONG HAYDEN (PCP) Primary Care Physician PARISH LEROY MD Patient Instructions: Going Up and Down Curbs or Stairs With a Walker or Crutches, How to Use Crutches, How to Use an Elastic Bandage, Knee Immobilizer ( DC), Knee Sprain (DC) Add. Discharge Instructions: HERVE WRAP, KNEE IMMOBILIZER AND CRUTCHES AT ALL TIMES ICE TO AREA AT 20 MINUTE INTERVALS ELEVATE LEG MUCH POSSIBLE FOLLOW UP WITH DR. ZAFUTA NEXT WEEK FOR FURTHER CARE All discharge instructions reviewed with patient and/or family. Voiced understanding. Scripts Meloxicam (Mobic) 7.5 Mg Tablet 7.5 MG PO DAILY, #10 TAB Prov: ANDREY KAY DO 09/28/17 ANDREY KAY DO Sep 28, 2017 17:45
[2017-09-28 17:54] VITALS: BP 123/57
== END 2017-09-28 17:56 | disposition home or self-care (01) ==
LOC: EDUNIT# 13:30 → ER 13:32
DX: S83.92XA Sprain of unspecified site of left knee, initial encounter (principal); J45.909 Unspecified asthma, uncomplicated; F41.9 Anxiety disorder, unspecified; F17.210 Nicotine dependence, cigarettes, uncomplicated; Z88.5 Allergy status to narcotic agent; Z90.89 Acquired absence of other organs; Z87.59 Personal history of other complications of pregnancy, childbirth and the puerperium; Z79.51 Long term (current) use of inhaled steroids; X50.0XXA Overexertion from strenuous movement or load, initial encounter
CPT/HCPCS: 73562

== ENCOUNTER 2017-12-21 08:51 | Emergency (ER) | payer SELFPAY ==
[~2017-12-21] VITALS: Ht 165.1 cm; Wt 74.8 kg
[~2017-12-21 08:51] MED LIST changes: +MELO-170 PO
--- NOTE | 2017-12-21 09:29 | ED Lower Extremity ---
General Stated Complaint: LT FOOT INJ Source: patient History of Present Illness Date Seen by Provider: Dec 21, 2017 Time Seen by Provider: 09:25 Initial Comments This 22-year-old white female presents after sustaining an injury to her left foot and ankle late last night (12 hours prior to presentation to the emergency department). The patient fell down steps sustaining a plantar flexion injury to the left foot and ankle. He is complaining of pain, swelling, paresthesias, and inability to weight-bear on the left foot and ankle. Patient denies other injury in her accident. The patient denies previous injury left foot or ankle. Allergies and Home Medications Allergies Coded Allergies: hydrocodone (Verified Adverse Reaction, Mild, 07/21/17) Itching Home Medications Acetaminophen 325 Mg Tablet, 650 MG PO PRN, (Reported) Albuterol Sulfate 1 Puff Puff, 2 PUFF IH Q4H PRN for WHEEZING 1 PUFF = 90 MCG Prescribed by: LYUBOV BEVERLY on 01/29/17 2338 Azithromycin 250 Mg Tablet, 250 MG PO UD TAKE 2 TABLETS ON DAY ONE THEN TAKE 1 TABLET DAILY FOR FOUR MORE DAYS Prescribed by: LYUBOV BEVERLY on 01/29/17 2338 Meloxicam 7.5 Mg Tablet, 7.5 MG PO DAILY Prescribed by: ANDREY KAY on 09/28/17 1745 Ondansetron 4 Mg Tab.rapdis, 4 MG SL Q4H PRN for NAUSEA/VOMITING-1ST LINE Prescribed by: MICHAEL BELTRÁN on 11/15/16 2348 Permethrin 324.86 Ml Combo..pkg, 324.86 ML MC UD Prescribed by: JOMAR HANNON on 07/22/17 0113 Sumatriptan Succinate 25 Mg Tablet, 25 MG PO [id number] PRN for MIGRAINE May repeat medicine every 2 hours, limit 300 mg/24 hours. Prescribed by: ARPITA GALVAN on 07/10/17 1833 Patient Home Medication List Home Medication List Reviewed: Yes Constitutional: No chills, No fever EENTM: No ear pain, No blurred vision Respiratory: No cough, No short of breath Cardiovascular: No chest pain, No palpitations Gastrointestinal: No abdominal pain, No diarrhea, No nausea, No vomiting Genitourinary: No dysuria, No frequency Musculoskeletal: see HPI, joint pain (left foot and ankle.) Skin: No change in color, No rash Psychiatric/Neurological: No Symptoms Reported Past Ndbkfke-Qrzneo-Yyiwki Hx Past Med/Social Hx: Reviewed Nursing Past Med/Soc Hx Patient Social History Type Used: Cigarettes 2nd Hand Smoke Exposure: No Recent Foreign Travel: No Contact w/Someone Who Travel: No Recent Hopitalizations: No Immunizations Up To Date Tetanus Booster (TDap): Less than 5yrs Seasonal Allergies Seasonal Allergies: No Past Medical History Surgeries: Yes (R WRIST REPAIR SECONDARY TO DOG BITE, BMT'S X 4, DENTAL) Adenoidectomy, Section, Ear Surgery, Gallbladder, Orthopedic, Tonsillectomy Respiratory: Yes Asthma Cardiac: No Neurological: No 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 Disorders: No Gastrointestinal: Yes Gall Bladder Disease Musculoskeletal: No Endocrine: No HEENT: Yes Chronic Ear Infection Cancer: No Psychosocial: Yes Anxiety Integumentary: No Blood Disorders: No Family Medical History Reviewed Nursing Family Hx No Pertinent Family Hx Physical Exam Vital Signs Vital Signs - First Documented 12/21/17 09:25 Temp 98.2 Pulse 82 Resp 18 B/P (MAP) 116/101 (106) Pulse Ox 98 Capillary Refill : General Appearance: WD/WN, mild distress HEENT: normal ENT inspection Neck: full range of motion, supple Cardiovascular: normal peripheral pulses, regular rate, rhythm Respiratory: chest non-tender, lungs clear Gastrointestinal: normal bowel sounds, non tender, soft Back: normal inspection Hips: bilateral hip normal inspection Legs: bilateral leg normal inspection Ankles: left ankle soft tissue tenderness, left ankle swelling Feet: left foot soft tissue tenderness, left foot swelling Neurologic/Tendon: normal sensation, normal motor functions, normal tendon functions Neurologic/Psychiatric: no motor/sensory deficits, alert, normal mood/affect, oriented x 3 Skin: normal color, warm/dry Progress/Results/Core Measures Results/Orders My Orders Orders - JAMESON CAMACHO MD Oxycodone/Apap 5/325mg Tablet (Percocet (12/21/17 09:30) Foot, Left, 3 Views (12/21/17 09:23) Ankle, Left, 3 Views (12/21/17 09:23) Medications Given in ED Current Medications Medications Dose Ordered Sig/Param Route Start Time Stop Time Status Last Admin Dose Admin Oxycodone/ Acetaminophen 1 tab ONCE ONCE PO 12/21/17 09:30 12/21/17 09:31 DC 12/21/17 09:42 1 TAB Vital Signs/I&O 12/21/17 09:25 Temp 98.2 Pulse 82 Resp 18 B/P (MAP) 116/101 (106) Pulse Ox 98 Progress Progress Note : Time: 10:05 Progress Note X-ray left foot and ankle filled and history evidence of fracture or dislocation. The patient was placed in a cast boot and given crutches. The patient was given Percocet for pain. I recommended ice and elevation over the weekend. Nonweightbearing with crutches. Close follow-up with her long term acute care registered nurse on Sunday. Return if any problems in the interim. Departure Impression Primary Impression: Sprain and strain of foot Additional Impression: Ankle sprain Qualified Codes: S93.492A - Sprain of other ligament of left ankle, initial encounter Disposition: 01 HOME, SELF-CARE Condition: Improved Departure-Patient Inst. Decision time for Depature: 10:07 Referrals: TONG HAYDEN (PCP) Primary Care Physician Patient Instructions: Ankle Sprain (DC) Add. Discharge Instructions: Crutches and boot for nonweightbearing. Percocet for pain. Ice and elevate over the weekend. Follow up with his caregiver on Sunday for further evaluation and care. Return if any problems or questions. JAMESON CAMACHO MD Dec 21, 2017 09:29
[2017-12-21] MEDS ORDERED: oxyCODONE/APAP 5/325MG (PERCOCET 5) TABLET PO ONE (09:30)
--- NOTE | 2017-12-21 09:52 | Diagnostic Imaging Report ---
INDICATION: Left foot pain. AP, oblique, and lateral views of left foot are obtained. FINDINGS: No fracture or acute bony abnormality is seen. Joint spaces are unremarkable. IMPRESSION: Negative left foot. Dictated by: Dictated on workstation # [id number]
--- NOTE | 2017-12-21 09:52 | Diagnostic Imaging Report ---
INDICATION: Left ankle pain AP, oblique, and lateral views of the left ankle were obtained. No fracture or acute bony abnormality is seen. Joint spaces are unremarkable. IMPRESSION: Negative left ankle. Dictated by: Dictated on workstation # [id number]
[2017-12-21 10:21] VITALS: BP 123/87
== END 2017-12-21 10:21 | disposition home or self-care (01) ==
LOC: EDUNIT# 08:51 → ER 08:53
DX: S93.402A Sprain of unspecified ligament of left ankle, initial encounter (principal); J45.909 Unspecified asthma, uncomplicated; F41.9 Anxiety disorder, unspecified; Z87.448 Personal history of other diseases of urinary system; Z88.5 Allergy status to narcotic agent; Z79.51 Long term (current) use of inhaled steroids; Z90.89 Acquired absence of other organs; Z87.59 Personal history of other complications of pregnancy, childbirth and the puerperium; W10.8XXA Fall (on) (from) other stairs and steps, initial encounter
CPT/HCPCS: 73610; 73630

== ENCOUNTER 2018-01-16 15:07 | Emergency (ER) | payer SELFPAY ==
[~2018-01-16] VITALS: Ht 165.1 cm; Wt 83.9 kg
[2018-01-16] MEDS ORDERED: ONDANSETRON 4 MG (ZOFRAN) ORAL DISSOLVE TAB PO ONE (15:30)
[2018-01-16 16:02] LABS: BASOPHILS % (AUTO) 0 % (0-10); EOSINOPHILS # (AUTO) 0.1 10^3/uL (0.0-0.3); EOSINOPHILS % (AUTO) 1 % (0-10); HEMATOCRIT 40 % (35-52); HEMOGLOBIN 13.6 G/DL (11.5-16.0); LYMPHOCYTES # (AUTO) 2.9 X 10^3 (1.0-4.0); LYMPHOCYTES % (AUTO) 31 % (12-44); MEAN CORPUSCULAR HEMOGLOBIN 30 PG (25-34); MEAN CORPUSCULAR HGB CONC 34 G/DL (32-36); MEAN CORPUSCULAR VOLUME 88 FL (80-99); MEAN PLATELET VOLUME 9.3 FL (7.4-10.4); MONOCYTES # (AUTO) 0.8 X 10^3 (0.0-1.0); MONOCYTES % (AUTO) 8 % (0-12); NEUTROPHILS # (AUTO) 5.4 X 10^3 (1.8-7.8); NEUTROPHILS % (AUTO) 59 % (42-75); PLATELET COUNT 304 10^3/uL (130-400); RED BLOOD COUNT 4.53 10^6/uL (4.35-5.85); RED CELL DISTRIBUTION WIDTH 13.2 % (10.0-14.5); WHITE BLOOD COUNT 9.2 10^3/uL (4.3-11.0)
--- NOTE | 2018-01-16 16:06 | ED General ---
General Chief Complaint: General Problems/Pain Stated Complaint: ABD PAIN;CHEST PAIN;NAUSEA;DIZZINESS Nursing Triage Note: AMBULATED TO ROOM 02 WITHOUT DIFFICULTY. COMPLAINS OF ABD PAIN, DIZZINESS, CHEST PAIN STARTING THIS AM. Nursing Sepsis Screen: No Definite Risk Source of Information: Patient Exam Limitations: No Limitations History of Present Illness Date Seen by Provider: Jan 16, 2018 Time Seen by Provider: 16:05 Initial Comments to ER with reports of suprapubic abdominal pain first noticed this morning. She was driving to [place] to see a friend when she developed sharp left-sided chest pain. She had some associated shortness of breath and decided to come here. No nausea or vomiting. No fevers or chills. No cough.currently, the pain is in a reverse L shaped going across entire lower abdomen both lower quadrants up the left side of the abdomen and into the left side of the chest. Timing/Duration: 4-6 Hours Severity: Mild Allergies and Home Medications Allergies Coded Allergies: hydrocodone (Verified Adverse Reaction, Mild, 07/21/17) Itching Home Medications Acetaminophen 325 Mg Tablet, 650 MG PO PRN, (Reported) Albuterol Sulfate 1 Puff Puff, 2 PUFF IH Q4H PRN for WHEEZING 1 PUFF = 90 MCG Prescribed by: LYUBOV BEVERLY on 01/29/17 233 Azithromycin 250 Mg Tablet, 250 MG PO UD TAKE 2 TABLETS ON DAY ONE THEN TAKE 1 TABLET DAILY FOR FOUR MORE DAYS Prescribed by: LYUBOV BEVERLY on 01/29/17 2338 Meloxicam 7.5 Mg Tablet, 7.5 MG PO DAILY Prescribed by: ANDREY KAY on 09/28/17 1745 Ondansetron 4 Mg Tab.rapdis, 4 MG SL Q4H PRN for NAUSEA/VOMITING-1ST LINE Prescribed by: MICHAEL BELTRÁN on 11/15/16 2348 Permethrin 324.86 Ml Combo..pkg, 324.86 ML MC UD Prescribed by: JOMAR HANNON on 07/22/17 0113 Sumatriptan Succinate 25 Mg Tablet, 25 MG PO [id number] PRN for MIGRAINE May repeat medicine every 2 hours, limit 300 mg/24 hours. Prescribed by: ARPITA GALVAN on 07/10/17 1833 Patient Home Medication List Home Medication List Reviewed: Yes Review of Systems Constitutional: see HPI EENTM: see HPI Respiratory: see HPI, short of breath Cardiovascular: see HPI, chest pain Genitourinary: no symptoms reported Musculoskeletal: no symptoms reported Skin: no symptoms reported Psychiatric/Neurological: No Symptoms Reported Past Djjlzfy-Vwajgl-Wgtald Hx Patient Social History Type Used: Cigarettes 2nd Hand Smoke Exposure: No Recent Foreign Travel: No Contact w/Someone Who Travel: No Recent Infectious Disease Expo: No Recent Hopitalizations: No Immunizations Up To Date Tetanus Booster (TDap): Less than 5yrs Seasonal Allergies Seasonal Allergies: No Past Medical History Surgeries: Yes (R WRIST REPAIR SECONDARY TO DOG BITE, BMT'S X 4, DENTAL) Adenoidectomy, Section, Ear Surgery, Gallbladder, Orthopedic, Tonsillectomy Respiratory: Yes Asthma Cardiac: No Neurological: No 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 Disorders: No 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 Genitourinary: No Gastrointestinal: Yes Gall Bladder Disease Musculoskeletal: No Endocrine: No HEENT: Yes Chronic Ear Infection Cancer: No Psychosocial: Yes Anxiety Integumentary: No Blood Disorders: No Family Medical History No Pertinent Family Hx Physical Exam Vital Signs Vital Signs - First Documented 01/16/18 15:15 Temp 98.0 Pulse 86 Resp 12 B/P (MAP) 124/83 (97) Pulse Ox 98 O2 Delivery Room Air Capillary Refill : Less Than 3 Seconds Height, Weight, BMI Height: 5'5.00" Weight: 185lbs.2.0oz.[id number]; 28.12 BMI Method:Stated General Appearance: No Apparent Distress, WD/WN Eyes: Bilateral Eye Normal Inspection, Bilateral Eye PERRL, Bilateral Eye EOMI HEENT: PERRL/EOMI, TMs Normal Neck: Full Range of Motion, Normal Inspection Respiratory: No Accessory Muscle Use, No Respiratory Distress Cardiovascular: Regular Rate, Rhythm, Normal Peripheral Pulses Gastrointestinal: Normal Bowel Sounds, Soft, Tenderness (ssuprapubic) Extremity: Normal Capillary Refill, Normal Inspection Neurologic/Psychiatric: Alert, Oriented x3 Skin: Normal Color, Warm/Dry Progress/Results/Core Measures Suspected Sepsis Recent Fever Within 48 Hours: No Infection Criteria Present: None New/Unexplained Altered Menta: No Sepsis Screen: No Definite Risk SIRS Temperature:98.0 Pulse: 86 Respiratory Rate: 12 Laboratory Tests 01/16/18 15:46: White Blood Count 9.2 Blood Pressure 124 /83 Mean: 97 Laboratory Tests 01/16/18 15:46: Creatinine 0.84, Platelet Count 304, Total Bilirubin 0.2 Results/Orders Lab Results Laboratory Tests Test 01/16/18 15:46 01/16/18 16:20 Range/Units White Blood Count 9.2 4.3-11.0 10^3/uL Red Blood Count 4.53 4.35-5.85 10^6/uL Hemoglobin 13.6 11.5-16.0 G/DL Hematocrit 40 35-52 % Mean Corpuscular Volume 88 80-99 FL Mean Corpuscular Hemoglobin 30 25-34 PG Mean Corpuscular Hemoglobin Concent 34 32-36 G/DL Red Cell Distribution Width 13.2 10.0-14.5 % Platelet Count 304 130-400 10^3/uL Mean Platelet Volume 9.3 7.4-10.4 FL Neutrophils (%) (Auto) 59 42-75 % Lymphocytes (%) (Auto) 31 12-44 % Monocytes (%) (Auto) 8 0-12 % Eosinophils (%) (Auto) 1 0-10 % Basophils (%) (Auto) 0 0-10 % Neutrophils # (Auto) 5.4 1.8-7.8 X 10^3 Lymphocytes # (Auto) 2.9 1.0-4.0 X 10^3 Monocytes # (Auto) 0.8 0.0-1.0 X 10^3 Eosinophils # (Auto) 0.1 0.0-0.3 10^3/uL Basophils # (Auto) 0.0 0.0-0.1 10^3/uL D-Dimer < 0.27 0.00-0.49 UG/ML Sodium Level 140 135-145 MMOL/L Potassium Level 4.2 3.6-5.0 MMOL/L Chloride Level 110 H 98-107 MMOL/L Carbon Dioxide Level 21 21-32 MMOL/L Anion Gap 9 5-14 MMOL/L Blood Urea Nitrogen 6 L 7-18 MG/DL Creatinine 0.84 0.60-1.30 MG/DL Estimat Glomerular Filtration Rate > 60 BUN/Creatinine Ratio 7 Glucose Level 100 70-105 MG/DL Calcium Level 9.9 8.5-10.1 MG/DL Total Bilirubin 0.2 0.1-1.0 MG/DL Aspartate Amino Transf (AST/SGOT) 11 5-34 U/L Alanine Aminotransferase (ALT/SGPT) 10 0-55 U/L Alkaline Phosphatase 64 40-136 U/L Total Protein 6.7 6.4-8.2 GM/DL Albumin 4.3 3.2-4.5 GM/DL Lipase 17 8-78 U/L Serum Test, Qualitative NEGATIVE NEGATIVE Urine Color YELLOW Urine Clarity CLEAR Urine pH 7 5-9 Urine Specific [place] 1.010 L 1.016-1.022 Urine Protein NEGATIVE NEGATIVE Urine Glucose (UA) NEGATIVE NEGATIVE Urine Ketones NEGATIVE NEGATIVE Urine Nitrite NEGATIVE NEGATIVE Urine Bilirubin NEGATIVE NEGATIVE Urine Urobilinogen NORMAL NORMAL MG/DL Urine Leukocyte Esterase NEGATIVE NEGATIVE Urine RBC (Auto) 1+ H NEGATIVE Urine RBC 0-2 /HPF Urine WBC NONE /HPF Urine Squamous Epithelial Cells 2-5 /HPF Urine Crystals NONE /LPF Urine Bacteria FEW H /HPF Urine Casts NONE /LPF Urine Mucus NEGATIVE /LPF Urine Culture Indicated NO My Orders Orders - NI DIOP APRN Cbc With Automated Diff (01/16/18 15:26) Comprehensive Metabolic Panel (01/16/18 15:26) Ua Culture If Indicated (01/16/18 15:26) Lipase (01/16/18 15:26) Hcg,Qualitative Serum (01/16/18 15:26) Chest Pa/Lat (2 View) (01/16/18 15:26) Ondansetron Oral Dissolve Tab (Zofran (01/16/18 15:30) Fibrin Degradation Products (01/16/18 16:06) Ibuprofen Tablet (Motrin Tablet) (01/16/18 17:15) Medications Given in ED Current Medications Medications Dose Ordered Sig/Param Route Start Time Stop Time Status Last Admin Dose Admin Ondansetron HCl 8 mg ONCE ONCE PO 01/16/18 15:30 01/16/18 15:31 DC 01/16/18 15:43 8 MG Vital Signs/I&O 01/16/18 15:15 Temp 98.0 Pulse 86 Resp 12 B/P (MAP) 124/83 (97) Pulse Ox 98 O2 Delivery Room Air Capillary Refill : Less Than 3 Seconds Blood Pressure Mean: 97 Departure Impression Primary Impression: Abdominal pain Additional Impression: Chest pain Disposition: 01 HOME, SELF-CARE Condition: Stable Departure-Patient Inst. Decision time for Depature: 17:05 Referrals: HAYDEN,TONG J SALVAGE GRINDER (PCP/Family) Primary Care Physician Patient Instructions: Acute Abdomen (Belly Pain) Add. Discharge Instructions: 1. Return to ER for any concerns 2. Follow-up with your doctor next week 3. NI DIOP APRN Jan 16, 2018 16:06
[2018-01-16 16:17] LABS: ALANINE AMINOTRANSFERASE 10 U/L (0-55); ALBUMIN 4.3 GM/DL (3.2-4.5); ALKALINE PHOSPHATASE 64 U/L (40-136); BILIRUBIN,TOTAL 0.2 MG/DL (0.1-1.0); BUN/CREATININE RATIO 7; CALCIUM 9.9 MG/DL (8.5-10.1); CARBON DIOXIDE 21 MMOL/L (21-32); CHLORIDE 110 MMOL/L (98-107); CREATININE SERUM 0.84 MG/DL (0.60-1.30); GFR ESTIMATED > 60; GLUCOSE 100 MG/DL (70-105); LIPASE 17 U/L (8-78); POTASSIUM 4.2 MMOL/L (3.6-5.0); SODIUM 140 MMOL/L (135-145); TOTAL PROTEIN 6.7 GM/DL (6.4-8.2)
--- NOTE | 2018-01-16 16:26 | Diagnostic Imaging Report ---
INDICATION: Chest and abdominal pain. TECHNIQUE: Two view chest 4:36 PM CORRELATION STUDY: 01/29/2017 FINDINGS: The heart size, mediastinal configuration and pulmonary vasculature are within normal limits. The lungs are clear with no consolidating infiltrate. There is no significant pleural effusion or pneumothorax. Visualized osseous structures are unremarkable. IMPRESSION: 1. Negative two-view chest. Dictated by: Dictated on workstation # [id number]
[2018-01-16 16:31] LABS: BILIRUBIN,URINE NEGATIVE (NEGATIVE); CLARITY,URINE CLEAR; COLOR,URINE YELLOW; GLUCOSE, URINE (UA) NEGATIVE (NEGATIVE); KETONES,URINE NEGATIVE (NEGATIVE); LEUKOCYTE ESTERASE ,URINE NEGATIVE (NEGATIVE); NITRITE,URINE NEGATIVE (NEGATIVE); PH,URINE 7 (5-9); PROTEIN,URINE NEGATIVE (NEGATIVE); UROBILINOGEN,URINE NORMAL (NORMAL)
[2018-01-16 16:55] LABS: BACTERIA,URINE FEW /HPF; RBC,URINE 0-2 /HPF
[2018-01-16] MEDS ORDERED: IBUPROFEN 800 MG (MOTRIN) TAB PO ONE (17:15)
[2018-01-16 17:16] VITALS: BP 121/76
== END 2018-01-16 17:16 | disposition home or self-care (01) ==
LOC: EDUNIT# 15:07 → ER 15:08
DX: R10.31 Right lower quadrant pain (principal); R10.32 Left lower quadrant pain; R07.89 Other chest pain; J45.909 Unspecified asthma, uncomplicated; F41.9 Anxiety disorder, unspecified; Z88.5 Allergy status to narcotic agent; Z90.89 Acquired absence of other organs; Z87.59 Personal history of other complications of pregnancy, childbirth and the puerperium
CPT/HCPCS: 36415; 71046; 80053; 81000; 83690; 84703; 85025; 85379; 99283

== ENCOUNTER 2018-01-25 19:29 | Emergency (ER) | payer SELFPAY ==
[~2018-01-25] VITALS: Ht 165.1 cm; Wt 84.0 kg
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
[2018-01-25 19:56] LABS: BASOPHILS % (AUTO) 0 % (0-10); EOSINOPHILS % (AUTO) 0 % (0-10); HEMATOCRIT 41 % (35-52); HEMOGLOBIN 14.8 G/DL (11.5-16.0); LYMPHOCYTES # (AUTO) 2.8 X 10^3 (1.0-4.0); LYMPHOCYTES % (AUTO) 22 % (12-44); MEAN CORPUSCULAR HEMOGLOBIN 31 PG (25-34); MEAN CORPUSCULAR HGB CONC 36 G/DL (32-36); MEAN CORPUSCULAR VOLUME 85 FL (80-99); MEAN PLATELET VOLUME 9.3 FL (7.4-10.4); MONOCYTES # (AUTO) 1.2 X 10^3 (0.0-1.0); MONOCYTES % (AUTO) 10 % (0-12); NEUTROPHILS # (AUTO) 8.8 X 10^3 (1.8-7.8); NEUTROPHILS % (AUTO) 68 % (42-75); PLATELET COUNT 346 10^3/uL (130-400); RED BLOOD COUNT 4.82 10^6/uL (4.35-5.85); RED CELL DISTRIBUTION WIDTH 12.5 % (10.0-14.5); WHITE BLOOD COUNT 12.9 10^3/uL (4.3-11.0)
[2018-01-25] MEDS ORDERED: fentaNYL INJECTION 100 MCG/2 ML AMP IVP ONE (20:00)
[2018-01-25] MEDS ORDERED: NS IV 1000 ML 1,000 ML IV SCH (20:00)
[2018-01-25] MEDS ORDERED: ONDANSETRON 4 MG/2 ML (SDV) Z0FRAN IVP ONE (20:00)
[2018-01-25 20:13] LABS: ALANINE AMINOTRANSFERASE 11 U/L (0-55); ALBUMIN 4.8 GM/DL (3.2-4.5); ALKALINE PHOSPHATASE 68 U/L (40-136); AMYLASE 32 U/L (25-125); BILIRUBIN,TOTAL 0.8 MG/DL (0.1-1.0); BUN/CREATININE RATIO 13; CALCIUM 10.2 MG/DL (8.5-10.1); CARBON DIOXIDE 19 MMOL/L (21-32); CHLORIDE 105 MMOL/L (98-107); GFR ESTIMATED > 60; GLUCOSE 157 MG/DL (70-105); LIPASE 6 U/L (8-78); POTASSIUM 3.4 MMOL/L (3.6-5.0); SODIUM 136 MMOL/L (135-145)
[2018-01-25 20:35] LABS: BILIRUBIN,URINE NEGATIVE (NEGATIVE); CLARITY,URINE SLIGHTLY CLOUDY; COLOR,URINE YELLOW; GLUCOSE, URINE (UA) NEGATIVE (NEGATIVE); KETONES,URINE NEGATIVE (NEGATIVE); LEUKOCYTE ESTERASE ,URINE 3+ (NEGATIVE); NITRITE,URINE NEGATIVE (NEGATIVE); PH,URINE 5 (5-9); PROTEIN,URINE 2+ (NEGATIVE); UROBILINOGEN,URINE NORMAL (NORMAL)
[2018-01-25 20:41] LABS: BACTERIA,URINE FEW /HPF; SQUAMOUS EPITHELIAL CELL,UR 25-50 /HPF; WBC,URINE >100 /HPF
--- NOTE | 2018-01-25 20:56 | ED Abdominal Pain ---
General Chief Complaint: Abdominal/GI Problems Stated Complaint: ABD PAIN;BACK PAIN Nursing Triage Note: c/o R flank pain and emesis x 1 Sepsis Screen: No Definite Risk Source of Information: Patient Exam Limitations: No Limitations History of Present Illness Date Seen by Provider: Jan 25, 2018 Time Seen by Provider: 20:51 Initial Comments Patient is a 22-year-old female who presents to the emergency room with complaints of suprapubic and right lower flank pain, nausea, vomiting 1 time. She reports that she was seen in the emergency room on 01/16/18 for similar complaints. She reports that she has not followed up with her doctor. She denies any fevers, constipation, diarrhea. Timing/Duration: 1-2 Days Severity/Quality: Mild Location: RLQ, Flank Associated Symptoms: Nausea/Vomiting Allergies and Home Medications Allergies Coded Allergies: hydrocodone (Verified Adverse Reaction, Mild, 07/21/17) Itching Home Medications Acetaminophen 325 Mg Tablet, 650 MG PO PRN, (Reported) Albuterol Sulfate 1 Puff Puff, 2 PUFF IH Q4H PRN for WHEEZING 1 PUFF = 90 MCG Prescribed by: LYUBOV BEVERLY on 01/29/172337 Azithromycin 250 Mg Tablet, 250 MG PO UD TAKE 2 TABLETS ON DAY ONE THEN TAKE 1 TABLET DAILY FOR FOUR MORE DAYS Prescribed by: LYUBOV BEVERLY on 01/29/172337 Meloxicam 7.5 Mg Tablet, 7.5 MG PO DAILY Prescribed by: ANDREY KAY on 09/28/17 1745 Nitrofurantoin Monohyd/M-Cryst 100 Mg Capsule, 1 TAB PO BID Prescribed by: NIKOLAS HARRELL on 01/25/182113 Ondansetron 4 Mg Tab.rapdis, 4 MG SL Q4H PRN for NAUSEA/VOMITING-1ST LINE Prescribed by: MICHAEL BELTRÁN on 11/15/16 2348 Ondansetron 4 Mg Tab.rapdis, 4 MG SL Q4H PRN for NAUSEA/VOMITING-1ST LINE Prescribed by: NIKOLAS HARRELL on 01/25/182113 Permethrin 324.86 Ml Combo..pkg, 324.86 ML MC UD Prescribed by: JOMAR HANNON on 07/22/17 0113 Phenazopyridine HCl 100 Mg Tablet, 100 MG PO TID Prescribed by: NIKOLAS HARRELL on 01/25/182113 Sumatriptan Succinate 25 Mg Tablet, 25 MG PO [id number] PRN for MIGRAINE May repeat medicine every 2 hours, limit 300 mg/24 hours. Prescribed by: ARPITA GALVAN on 07/10/17 183 Patient Home Medication List Home Medication List Reviewed: Yes Review of Systems Constitutional: see HPI; No chills, No diaphoresis Gastrointestinal: See HPI, Abdominal Pain, Nausea Genitourinary: See HPI, Flank Pain All Other Systems Reviewed Negative Unless Noted: Yes Past Mascgfd-Iiybrj-Vnvity Hx Past Med/Social Hx: Reviewed Nursing Past Med/Soc Hx Patient Social History Alcohol Use: Occasionally Uses Recreational Drug Use: No Type Used: Cigarettes 2nd Hand Smoke Exposure: No Recent Foreign Travel: No Contact w/Someone Who Travel: No Recent Infectious Disease Expo: No Recent Hopitalizations: No Immunizations Up To Date Tetanus Booster (TDap): Less than 5yrs Seasonal Allergies Seasonal Allergies: No Past Medical History Surgeries: Yes (R WRIST REPAIR SECONDARY TO DOG BITE, BMT'S X 4, DENTAL) Adenoidectomy, Section, Ear Surgery, Gallbladder, Orthopedic, Tonsillectomy Respiratory: Yes Asthma Cardiac: No Neurological: No 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 2.0oz. [id number]; 28.12 BMI Method:Stated General Appearance: WD/WN, no apparent distress Respiratory: chest non-tender, lungs clear, normal breath sounds, no respiratory distress, no accessory muscle use Cardiovascular: regular rate, rhythm, no edema, no gallop, no JVD, no murmur Gastrointestinal: normal bowel sounds, soft, no organomegaly, no pulsatile mass , tenderness (right lower quadrant that radiates to the flank area.) Back: normal inspection, no vertebral tenderness, CVA tenderness (R) Neurologic/Psychiatric: alert, normal mood/affect, oriented x 3 Lymphatic: no adenopathy Progress/Results/Core Measures Results/Orders Lab Results Laboratory Tests Test 01/25/18 19:30 01/25/18 19:45 01/25/18 20:30 Range/Units Lab Scanned Report Referred Lab Report [id number] White Blood Count 12.9 H 4.3-11.0 10^3/uL Red Blood Count 4.82 4.35-5.85 10^6/uL Hemoglobin 14.8 11.5-16.0 G/DL Hematocrit 41 35-52 % Mean Corpuscular Volume 85 80-99 FL Mean Corpuscular Hemoglobin 31 25-34 PG Mean Corpuscular Hemoglobin Concent 36 32-36 G/DL Red Cell Distribution Width 12.5 10.0-14.5 % Platelet Count 346 130-400 10^3/uL Mean Platelet Volume 9.3 7.4-10.4 FL Neutrophils (%) (Auto) 68 42-75 % Lymphocytes (%) (Auto) 22 12-44 % Monocytes (%) (Auto) 10 0-12 % Eosinophils (%) (Auto) 0 0-10 % Basophils (%) (Auto) 0 0-10 % Neutrophils # (Auto) 8.8 H 1.8-7.8 X 10^3 Lymphocytes # (Auto) 2.8 1.0-4.0 X 10^3 Monocytes # (Auto) 1.2 H 0.0-1.0 X 10^3 Eosinophils # (Auto) 0.0 0.0-0.3 10^3/uL Basophils # (Auto) 0.0 0.0-0.1 10^3/uL Sodium Level 136 135-145 MMOL/L Potassium Level 3.4 L 3.6-5.0 MMOL/L Chloride Level 105 98-107 MMOL/L Carbon Dioxide Level 19 L 21-32 MMOL/L Anion Gap 12 5-14 MMOL/L Blood Urea Nitrogen 12 7-18 MG/DL Creatinine 0.90 0.60-1.30 MG/DL Estimat Glomerular Filtration Rate > 60 BUN/Creatinine Ratio 13 Glucose Level 157 H 70-105 MG/DL Calcium Level 10.2 H 8.5-10.1 MG/DL Total Bilirubin 0.8 0.1-1.0 MG/DL Aspartate Amino Transf (AST/SGOT) 12 5-34 U/L Alanine Aminotransferase (ALT/SGPT) 11 0-55 U/L Alkaline Phosphatase 68 40-136 U/L Total Protein 8.0 6.4-8.2 GM/DL Albumin 4.8 H 3.2-4.5 GM/DL Amylase Level 32 25-125 U/L Lipase 6 L 8-78 U/L Serum Test, Qualitative NEGATIVE NEGATIVE Urine Color YELLOW Urine Clarity SLIGHTLY CLOUDY Urine pH 5 5-9 Urine Specific Bryan 1.025 H 1.016-1.022 Urine Protein 2+ H NEGATIVE Urine Glucose (UA) NEGATIVE NEGATIVE Urine Ketones NEGATIVE NEGATIVE Urine Nitrite NEGATIVE NEGATIVE Urine Bilirubin NEGATIVE NEGATIVE Urine Urobilinogen NORMAL NORMAL MG/DL Urine Leukocyte Esterase 3+ H NEGATIVE Urine RBC (Auto) 5+ H NEGATIVE Urine RBC 10-25 H /HPF Urine WBC >100 H /HPF Urine Squamous Epithelial Cells 25-50 H /HPF Urine Crystals NONE /LPF Urine Bacteria FEW H /HPF Urine Casts NONE /LPF Urine Mucus NEGATIVE /LPF Urine Culture Indicated YES Micro Results Microbiology 01/25/18 Urine Culture - Final, Complete Escherichia coli My Orders Orders - NIKOLAS HARRELL Ondansetron Injection (Zofran Injectio (01/25/18 20:00) Fentanyl Injection (Sublimaze Injection (01/25/18 20:00) Ns Iv 1000 Ml (Sodium Chloride 0.9%) (01/25/18 20:00) Comprehensive Metabolic Panel (01/25/18 19:46) Lipase (01/25/18 19:46) Amylase (01/25/18 19:46) Ua Culture If Indicated (01/25/18 19:46) Hcg,Qualitative Serum (01/25/18 19:46) Saline Lock/Iv-Start (01/25/18 19:46) Cbc With Automated Diff (01/25/18 19:46) Urine Culture (01/25/18 20:30) Ceftriaxone Injection (Rocephin Injectio (01/25/18 21:00) Ketorolac Injection (Toradol Injection) (01/25/18 21:00) Phenazopyridine Tablet (Pyridium Tablet) (01/25/18 21:00) Iv Infusion <= First Hr Ed (01/25/18 ) Medications Given in ED Vital Signs/I&O 01/25/18 01/25/18 19:44 21:32 Temp 98.4 98.4 Pulse 130 98 Resp 18 18 B/P (MAP) 124/83 (97) 117/74 (97) Pulse Ox 98 98 Blood Pressure Mean: 97 Progress Progress Note : Progress Note Given the patient's symptoms and laboratory findings I believe that her symptoms are attributed to a urinary tract infection. Looking at her old microbiology cultures of the urine she's had good coverage with Macrobid. I'm also giving her a prescription for Pyridium for discomfort. And a gram of Rocephin in the emergency room today. He agrees with plans of discharge, close follow-up with her primary care physician, return precautions, and taking medication as prescribed. Departure Impression Primary Impression: Urinary tract infection Disposition: HOME, SELF-CARE Condition: Stable/Unchanged Departure-Patient Inst. Referrals: TONG HAYDEN (PCP/Family) Primary Care Physician Patient Instructions: Urinary Tract Infection, Adult (DC) Add. Discharge Instructions: Take medications as directed. Increase her clear fluid intake such as water. Follow up with your doctor within 1 week for recheck. Return back to the emergency room for any worsening symptoms or any concerns as needed. All discharge instructions reviewed with patient and/or family. Voiced understanding. Scripts Ondansetron (Zofran Odt) 4 Mg Tab.rapdis 4 MG SL Q4H PRN for NAUSEA/VOMITING-1ST LINE, #14 TAB Prov: NIKOLAS HARRELL 01/25/18 Phenazopyridine HCl (Pyridium) 100 Mg Tablet 100 MG PO TID for 2 Days, #16 TAB Prov: NIKOLAS HARRELL 01/25/18 Nitrofurantoin Monohyd/M-Cryst (Macrobid 100 mg Capsule) 100 Mg Capsule 1 TAB PO BID for 5 Days, #10 CAP Prov: NIKOLAS HARRELL 01/25/18 NIKOLAS HARRELL Jan 25, 2018 20:55
[2018-01-25] MEDS ORDERED: cefTRIAXone INJECTION 1,000 MG in NS (IVPB) 50 ML IV ONE (21:00)
[2018-01-25] MEDS ORDERED: PHENAZOPYRIDINE 100 MG (PYRIDIUM) TABLET PO ONE (21:00)
[2018-01-25] MEDS ORDERED: KETOROLAC 30 MG/ML VIAL IVP ONE (21:00)
[2018-01-25] MEDS ORDERED: NITR-65 PO (21:14)
[2018-01-25] MEDS ORDERED: PHEN-639 PO (21:14)
[2018-01-25] MEDS ORDERED: ONDA4TAB8 SL (21:14)
[2018-01-25 21:32] VITALS: BP 117/74
== END 2018-01-25 21:32 | disposition home or self-care (01) ==
LOC: EDUNIT# 19:29 → ER 19:30
DX: N39.0 Urinary tract infection, site not specified (principal); J45.909 Unspecified asthma, uncomplicated; F41.9 Anxiety disorder, unspecified; Z97.5 Presence of (intrauterine) contraceptive device; Z87.448 Personal history of other diseases of urinary system; Z88.5 Allergy status to narcotic agent; Z79.51 Long term (current) use of inhaled steroids; Z90.89 Acquired absence of other organs; Z87.59 Personal history of other complications of pregnancy, childbirth and the puerperium
CPT/HCPCS: 36415; 80053; 81000; 82150; 83690; 84703; 85025; 87088; 87186; 96361; 96365; 96375

== ENCOUNTER 2018-03-11 20:00 | Emergency (ER) | payer SELFPAY ==
[~2018-03-11] VITALS: Ht 165.1 cm; Wt 79.4 kg
[~2018-03-11 20:00] MED LIST changes: +NITR-65 PO; +PHEN-639 PO
[2018-03-11] MEDS ORDERED: KETOROLAC 60 MG/2 ML VIAL IM ONE (20:30)
[2018-03-11] MEDS ORDERED: diphenhydrAMINE 50 MG/ML INJ (BENADRYL) IM ONE (20:30)
[2018-03-11] MEDS ORDERED: PROCHLORPERAZINE 10 MG/2ML INJ (COMPAZINE) IM ONE (20:30)
--- NOTE | 2018-03-11 20:44 | ED Headache ---
General Chief Complaint: Head/Cervical Problems Stated Complaint: MIGRANE, LOSS OF BALANCE, DOUBLE VISION Nursing Triage Note: FRONTAL HEADACHE, RIGHT EAR PAIN X4 DAYS Nursing Sepsis Screen: No Definite Risk Source: patient Exam Limitations: no limitations History of Present Illness Date Seen by Provider: Mar 11, 2018 Time Seen by Provider: 20:20 Initial Comments Patient is a 22-year-old female who presents to the emergency room with complaints of a migraine for 4 days. She states that she has headache in the frontal area that radiates to her right ear. She has a history of migraines and reports that this is very similar to her other migraines. Timing/Duration: other (4 days) Location: frontal Prior Headaches/Recent Trauma: occasional headaches Modifying Factors: improves with movement Associated Symptoms: denies symptoms Allergies and Home Medications Allergies Coded Allergies: hydrocodone (Verified Adverse Reaction, Mild, 07/21/17) Itching Home Medications Propranolol HCl 40 Mg Tablet, 40 MG PO BID Prescribed by: MICHAEL BELTRÁN on 03/14/18 0231 Patient Home Medication List Home Medication List Reviewed: Yes Review of Systems Review of Systems Constitutional: see HPI; No chills, No fever Ears, Nose, Mouth, Throat: see HPI, ear pain (right ear) Skin: see HPI Psychiatric/Neurological: See HPI, Headache All Other Systems Reviewed Negative Unless Noted: Yes Past Wmqvrdb-Sxbzac-Ybbmeh Hx Past Med/Social Hx: Reviewed Nursing Past Med/Soc Hx Patient Social History Alcohol Use: Occasionally Uses Recreational Drug Use: No Smoking Status: Current Everyday Smoker Type Used: Cigarettes 2nd Hand Smoke Exposure: No Recent Foreign Travel: No Contact w/Someone Who Travel: No Recent Infectious Disease Expo: No Recent Hopitalizations: No Immunizations Up To Date Tetanus Booster (TDap): Less than 5yrs PED Vaccines UTD: Yes Seasonal Allergies Seasonal Allergies: No Past Medical History Surgeries: Yes (R WRIST REPAIR , BMT'S X 4, DENTAL) Adenoidectomy, Section, Ear Surgery, Gallbladder, Orthopedic, Tonsillectomy Respiratory: Yes Asthma Cardiac: No Neurological: Yes Headaches /Migraines : No Last Menstrual Period: Feb 21, 2018 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 0oz. [id number]; 28.12 BMI Method:Stated General Appearance: WD/WN, no apparent distress HEENT: PERRL/EOMI, normal ENT inspection, TMs normal, pharynx normal Neck: non-tender, full range of motion, supple, normal inspection Cardiovascular: normal peripheral pulses, regular rate, rhythm, no edema, no gallop, no JVD, no murmur Respiratory: chest non-tender, lungs clear, normal breath sounds, no respiratory distress, no accessory muscle use Psychiatric: alert, oriented x 3 Crainal Nerves: normal hearing, normal speech Motor/Sensory: no motor deficit, no sensory deficit Skin: normal color, warm/dry Progress/Results/Core Measures Results/Orders My Orders Orders - NIKOLAS HARRELL Ketorolac Injection (Toradol Injection) (03/11/18 20:30) Prochlorperazine Injection (Compazine In (03/11/18 20:30) Diphenhydramine Injection (Benadryl Inje (03/11/18 20:30) Acetaminophen Tablet (Tylenol Tablet) (03/11/18 21:30) Medications Given in ED Vital Signs/I&O 03/11/18 03/11/18 03/11/18 03/11/18 20:10 20:29 21:33 21:38 Temp 98.4 98.4 98.4 98.4 Pulse 78 78 Resp 18 18 B/P (MAP) 134/99 (111) 134/99 (111) Pulse Ox 100 100 O2 Delivery Room Air Blood Pressure Mean: 111 Progress Progress Note : Time: 21:20 Progress Note Patient has had mild relief of pain. She requested some Tylenol. She feels like she can go home and rest and follow-up with her primary care provider tomorrow. She agrees with plans for discharge, return precautions were given. Departure Impression Primary Impression: Migraine Disposition: 01 HOME, SELF-CARE Condition: Stable/Unchanged Departure-Patient Inst. Decision time for Depature: 21:19 Referrals: TONG HAYDEN (PCP/Family) Primary Care Physician Patient Instructions: Migraine Headache (DC) Add. Discharge Instructions: Follow-up with Sarah hernandes nurse practitioner within 1 week for recheck. Return back to the emergency room for any worsening symptoms or concerns as needed. All discharge instructions reviewed with patient and/or family. Voiced understanding. NIKOLAS HARRELL Mar 11, 2018 20:44
[2018-03-11] MEDS ORDERED: ACETAMINOPHEN 500 MG TAB (TYLENOL) PO ONE (21:30)
[2018-03-11 21:33] VITALS: BP 134/99
== END 2018-03-11 21:32 | disposition home or self-care (01) ==
LOC: EDUNIT# 20:00 → ER 20:01
DX: G43.909 Migraine, unspecified, not intractable, without status migrainosus (principal); F17.210 Nicotine dependence, cigarettes, uncomplicated; J45.909 Unspecified asthma, uncomplicated; F41.9 Anxiety disorder, unspecified; Z87.440 Personal history of urinary (tract) infections; Z88.5 Allergy status to narcotic agent; Z90.89 Acquired absence of other organs; Z98.890 Other specified postprocedural states
CPT/HCPCS: 96372; 99284

== ENCOUNTER 2018-03-13 22:55 | Emergency (ER) | payer SELFPAY ==
[~2018-03-13] VITALS: Ht 165.1 cm; Wt 79.4 kg
[2018-03-13] MEDS ORDERED: NS IV 1000 ML 1,000 ML IV ONE (23:19)
--- NOTE | 2018-03-13 23:26 | ED Headache ---
General Chief Complaint: Head/Cervical Problems Stated Complaint: MIGRAINE Nursing Triage Note: AMBULATORY TO ED STATING SHE WAS "HERE A FEW NIGHTS AGO WITH A MIGRAINE AND WAS TOLD TO COME BACK IF GOT WORSE". STATES SHE HAD 3 SHOTS, BENADRY, TORADOL, AND COULD NOT REMEMBER THE 3RD. PAIN NEVER GOT ANY BETTER AND NOW NAUSEOUS ALL DAY AND VOMIT X4 TODAY. PAIN IN BACK OF NECK AND LEFT SIDE OF HEAD. Nursing Sepsis Screen: No Definite Risk Source: patient Exam Limitations: no limitations (KRISTI HASTINGS STUDENT) Source: old records (MICHAEL HUNT MD) History of Present Illness Date Seen by Provider: Mar 13, 2018 Time Seen by Provider: 23:29 Initial Comments Patient is a 22 year old female who presents to the ED for worsening migraine x1.5 weeks duration. She states that she came in 4 days ago for this and was told to return if her symptoms got worse. She states that this migraine feels similar to the one that she had before. After she left, the migraine started to get better, however it has since worsened. Patient states that the pain is 9/10 and worse on the left and radiates down her left neck. She admits to photophobia , blurry vision and lightheadedness. Patient also admits to nausea and vomiting that began today. Patient has a 4 year history of migraines and has seen her pcp for them in the past. Patient states that her menstrual cycle was about 4 weeks ago is should start any day. She has taken ibuprofen for the pain at home without relief. Timing/Duration: 1 week Severity/Quality: severe Location: frontal (increased on left) Prior Headaches/Recent Trauma: frequent headaches Modifying Factors: worse with exposure to light, worse with movement; improves with rest Associated Symptoms: No confusion, No fever/chills, No loss of consciousness, No nausea/vomiting, No stiff neck; vision changes (blurry), other ( lightheadedness) (KRISTI HASTINGS MED STUDENT) Allergies and Home Medications Allergies Coded Allergies: hydrocodone (Verified Adverse Reaction, Mild, 07/21/17) Itching Home Medications Propranolol HCl 40 Mg Tablet, 40 MG PO BID Prescribed by: MICHAEL BELTRÁN on 03/14/18 2629 Patient Home Medication List Home Medication List Reviewed: Yes (MICHAEL HUNT MD) Review of Systems Review of Systems Constitutional: No chills; dizziness; No fever Eyes: Blurred Vision, Pain (worse on left), Photophobia Ears, Nose, Mouth, Throat: no symptoms reported Respiratory: no symptoms reported Cardiovascular: no symptoms reported; No syncope Gastrointestinal: No abdominal pain; nausea, vomiting Genitourinary: No dysuria, No frequency Musculoskeletal: neck pain (left sided) Skin: no symptoms reported Psychiatric/Neurological: Headache; Denies Numbness, Denies Tingling (KRISTI HASTINGS) Past Toozqns-Jjdlme-Fucpev Hx Patient Social History Alcohol Use: Occasionally Uses Recreational Drug Use: No Type Used: Cigarettes 2nd Hand Smoke Exposure: No Recent Foreign Travel: No Contact w/Someone Who Travel: No Recent Infectious Disease Expo: No Recent Hopitalizations: No (KRISTI HASTINGS) Immunizations Up To Date Tetanus Booster (TDap): Less than 5yrs PED Vaccines UTD: Yes (KRISTI HASTINGS) Seasonal Allergies Seasonal Allergies: No (KRISTI HASTINGS) Past Medical History Surgeries: Yes (R WRIST REPAIR , BMT'S X 4, DENTAL) Adenoidectomy, Section, Ear Surgery, Gallbladder, Orthopedic, Tonsillectomy Respiratory: Yes Asthma Cardiac: No Neurological: Yes Headaches /Migraines Last Menstrual Period: Feb 18, 2018 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 0oz. 79.383623pc; 28.12 BMI Method:Stated General Appearance: moderate distress, obese HEENT: PERRL/EOMI, pharynx normal, photophobia Neck: non-tender, full range of motion, supple, normal inspection Cardiovascular: regular rate, rhythm, no edema, no gallop, no JVD, no murmur Respiratory: lungs clear, normal breath sounds, no respiratory distress, no accessory muscle use Gastrointestinal: normal bowel sounds, non tender, soft Psychiatric: alert, oriented x 3 Crainal Nerves: normal hearing, normal speech Skin: normal color, warm/dry (KRISTI HASTINGS MED STUDENT) Progress/Results/Core Measures Results/Orders Lab Results Laboratory Tests Test 03/14/18 00:01 03/14/18 01:08 Range/Units Urine Color YELLOW Urine Clarity VERY CLOUDY H Urine pH 8 5-9 Urine Specific [place] 1.015 L 1.016-1.022 Urine Protein NEGATIVE NEGATIVE Urine Glucose (UA) NEGATIVE NEGATIVE Urine Ketones NEGATIVE NEGATIVE Urine Nitrite NEGATIVE NEGATIVE Urine Bilirubin NEGATIVE NEGATIVE Urine Urobilinogen NORMAL NORMAL MG/DL Urine Leukocyte Esterase NEGATIVE NEGATIVE Urine RBC (Auto) NEGATIVE NEGATIVE Urine RBC NONE /HPF Urine WBC NONE /HPF Urine Squamous Epithelial Cells 0-2 /HPF Urine Crystals PRESENT H /LPF Urine Amorphous Sediment LARGE ROSARIO PHOSPHATE H /LPF Urine Bacteria LARGE H /HPF Urine Casts NONE /LPF Urine Mucus NEGATIVE /LPF Urine Culture Indicated NO Urine Opiates Screen NEGATIVE NEGATIVE Urine Oxycodone Screen NEGATIVE NEGATIVE Urine Methadone Screen NEGATIVE NEGATIVE Urine Propoxyphene Screen NEGATIVE NEGATIVE Urine Barbiturates Screen NEGATIVE NEGATIVE Ur Tricyclic Antidepressants Screen NEGATIVE NEGATIVE Urine Phencyclidine Screen NEGATIVE NEGATIVE Urine Amphetamines Screen NEGATIVE NEGATIVE Urine Methamphetamines Screen NEGATIVE NEGATIVE Urine Benzodiazepines Screen NEGATIVE NEGATIVE Urine Cocaine Screen NEGATIVE NEGATIVE Urine Cannabinoids Screen NEGATIVE NEGATIVE White Blood Count 15.3 H 4.3-11.0 10^3/uL Red Blood Count 4.11 L 4.35-5.85 10^6/uL Hemoglobin 12.3 11.5-16.0 G/DL Hematocrit 36 35-52 % Mean Corpuscular Volume 87 80-99 FL Mean Corpuscular Hemoglobin 30 25-34 PG Mean Corpuscular Hemoglobin Concent 35 32-36 G/DL Red Cell Distribution Width 13.0 10.0-14.5 % Platelet Count 297 130-400 10^3/uL Mean Platelet Volume 9.5 7.4-10.4 FL Neutrophils (%) (Auto) 78 H 42-75 % Lymphocytes (%) (Auto) 18 12-44 % Monocytes (%) (Auto) 4 0-12 % Eosinophils (%) (Auto) 0 0-10 % Basophils (%) (Auto) 0 0-10 % Neutrophils # (Auto) 11.9 H 1.8-7.8 X 10^3 Lymphocytes # (Auto) 2.7 1.0-4.0 X 10^3 Monocytes # (Auto) 0.6 0.0-1.0 X 10^3 Eosinophils # (Auto) 0.1 0.0-0.3 10^3/uL Basophils # (Auto) 0.0 0.0-0.1 10^3/uL Neutrophils % (Manual) 80 % Lymphocytes % (Manual) 18 % Monocytes % (Manual) 2 % Sodium Level 139 135-145 MMOL/L Potassium Level 3.9 3.6-5.0 MMOL/L Chloride Level 113 H 98-107 MMOL/L Carbon Dioxide Level 18 L 21-32 MMOL/L Anion Gap 8 5-14 MMOL/L Blood Urea Nitrogen 13 7-18 MG/DL Creatinine 0.70 0.60-1.30 MG/DL Estimat Glomerular Filtration Rate > 60 BUN/Creatinine Ratio 19 Glucose Level 98 70-105 MG/DL Calcium Level 8.8 8.5-10.1 MG/DL Corrected Calcium 9.0 8.5-10.1 MG/DL Magnesium Level 2.3 1.8-2.4 MG/DL Total Bilirubin 0.3 0.1-1.0 MG/DL Aspartate Amino Transf (AST/SGOT) 19 5-34 U/L Alanine Aminotransferase (ALT/SGPT) 15 0-55 U/L Alkaline Phosphatase 54 40-136 U/L Total Protein 6.3 L 6.4-8.2 GM/DL Albumin 3.8 3.2-4.5 GM/DL Serum Test, Qualitative NEGATIVE NEGATIVE (MICHAEL HUNT MD) My Orders Orders - MICHAEL HUNT MD Saline Lock/Iv-Start (03/13/18 23:19) Ns Iv 1000 Ml (Sodium Chloride 0.9%) (03/13/18 23:19) Promethazine Injection (Phenergan Injec (03/13/18 23:30) Ketorolac Injection (Toradol Injection) (03/13/18 23:30) Diphenhydramine Injection (Benadryl Inje (03/13/18 23:30) Methylprednisolone Sod Succ (Solu-Medrol (03/13/18 23:30) Fentanyl Injection (Sublimaze Injection (03/14/18 00:45) Cbc With Automated Diff (03/14/18 00:45) Comprehensive Metabolic Panel (03/14/18 00:45) Drug Screen Stat (Urine) (03/14/18 00:45) Hcg,Qualitative Serum (03/14/18 00:45) Ua Culture If Indicated (03/14/18 00:45) Manual Differential (03/14/18 01:08) Magnesium (03/14/18 01:37) Rx-Ondansetron Po (Rx-Zofran Po) (03/14/18 02:16) (MICHAEL HUNT MD) Medications Given in ED (MICHAEL HUNT MD) Vital Signs/I&O 03/13/18 03/14/18 23:05 02:41 Temp 99.9 99.9 Pulse 77 77 Resp 17 17 B/P (MAP) 119/82 (94) 119/82 (94) Pulse Ox 100 (MICHAEL HUNT MD) Blood Pressure Mean: 94 Progress Progress Note : Progress Note 22-year-old woman was interviewed, seen, and examined by me along with Kristi Hastings, 4. I agree with her history, exam, assessment, plan, and documentation with the following additions. This patient seems to be having rebound headaches over the past week and a half. Her headache actually had resolved this morning after sleeping but returned not long after waking up. She has nausea and vomiting and states she vomited 4 today. She took ibuprofen 800 mg a few hours ago and a warm shower. She felt like this made her headache worse. She states she has blurry vision and sometimes diplopia during the headaches. However, the vision changes resolved when the headache resolves. She reports her pain was 9 out of 10 at its worst and is now 8 out of 10 after initial treatment. She reports her last menstrual period was 3-4 weeks ago. She denies any alcohol or drug use. Patient reports having migraines for about 4 years. She had imaging of the head performed in July because of the trauma. Imaging of the brain was unremarkable. Exam: Gen.: Alert, oriented, resting comfortably in the bed HEENT: Normocephalic and atraumatic with mucus membranes moist. Pupils equally reactive to light. Heart: Regular rate and rhythm without murmur Lungs: Clear to auscultation bilaterally with normal effort Neuro/psych: Alert, oriented, no focal deficits Patient was initially treated with Phenergan, Toradol, Benadryl, and IV fluids. This minimally improved her pain from 9/10 down to 8/10. Nauseated improved. Patient was further treated with fentanyl and Solu-Medrol. Labs were obtained and were unremarkable except for leukocytosis. However, leukocytosis is probably related to the Solu-Medrol that was already administered prior to blood draw. Patient did eventually fall sleep and felt comfortable enough to return home. She was sent home with a take-home packet of Zofran. She was also given a prescription for prednisone for treatment of recurrent and/or refractory headaches. Patient has frequent headaches so she was also prescribed propranolol for prophylaxis. She was advised to follow-up with her primary care provider. Perhaps more workup can be done such as checking for vitamin D deficiency, thyroid function, etc. (MICHAEL HUNT MD) Departure Impression Primary Impression: Migraine Qualified Codes: G43.909 - Migraine, unspecified, not intractable, without status migrainosus Additional Impression: Nausea & vomiting Qualified Codes: R11.2 - Nausea with vomiting, unspecified Disposition: 01 HOME, SELF-CARE Condition: Improved Departure-Patient Inst. Decision time for Depature: 02:30 (MICHAEL HUNT MD) Referrals: TONG HAYDEN (PCP/Family) Primary Care Physician Patient Instructions: Migraine Headache (DC) Add. Discharge Instructions: Drink plenty of clear liquids. For pain take ibuprofen up to 600 mg every 6 hours as needed and add Tylenol ( acetaminophen) up to 1000 mg every 6 hours as needed. Start propranolol as prescribed to prevent migraines. Follow-up with your primary care provider to discuss further workup and treatment of recurrent migraines. Return to care if symptoms are worsening. Use Zofran (ondansetron) dispensed in the ER for nausea. Dissolve under the tongue every 4 hours as needed. All discharge instructions reviewed with patient and/or family. Voiced understanding. Scripts Propranolol HCl (Propranolol HCl) 40 Mg Tablet 40 MG PO BID, #60 TAB Prov: MICHAEL HUNT MD 03/14/18 KRISTI HASTINGS MED STUDENT Mar 13, 2018 23:26 MICHAEL HUNT MD Mar 14, 2018 02:31
[2018-03-13] MEDS ORDERED: diphenhydrAMINE 50 MG/ML INJ (BENADRYL) IVP ONE (23:30)
[2018-03-13] MEDS ORDERED: PROMETHAZINE INJ 25 MG/ML (PHENERGAN) AMP IVP ONE (23:30)
[2018-03-13] MEDS ORDERED: KETOROLAC 30 MG/ML VIAL IVP ONE (23:30)
[2018-03-13] MEDS ORDERED: methylPREDNISolone 125 MG (Solu-MEDROL) VIAL IVP ONE (23:30)
--- OUTSIDE RECORDS SUMMARY | 2018-03-13 23:34 | XMS REPORT ---
Author Author KAILEY OLSON [facility] Address [address] [place] [address] Care Team Providers Care Manager Night Name Role Phone KAILEY OLSON Unavailable PROBLEMS Unknown Problems ALLERGIES No Information ENCOUNTERS Encounter Location Date Diagnosis [facility] [address] [address] Oct, Nexplanon removal Z30.46 and BCP ( control pills) initiation Z30.011 [facility] [address] [address] Sep, [facility] [address] [id number] Sep, Dental examination Z01.20 [facility] [address] [address] Oct, [facility] [address] [address] Oct, [facility] [address] [address] Feb, [facility] [id number] [place] [address] Feb, [facility] [address] [address] Feb, [facility] [address] [address] Feb, [facility] [address] [address] Dec, [facility] [address] [address] Oct, [facility] [address] [place] [address] Sep, [facility] [id number] [place] [address] May, [facility] [address] [place] [address] May, [facility] [id number] [place] [address] Apr, [facility] [address] [place] [address] Apr, [facility] [id number] [place] [address] Feb, [facility] [address] [address] Dec, [facility] [address] [place] [address] Dec, [facility] [id number] [place] [address] November, IMMUNIZATIONS No Known Immunizations SOCIAL HISTORY Never Assessed REASON FOR VISIT FYI PLAN OF CARE VITAL SIGNS MEDICATIONS Unknown Medications RESULTS No Results PROCEDURES No Known procedures INSTRUCTIONS MEDICATIONS ADMINISTERED No Known Medications
--- OUTSIDE RECORDS SUMMARY | 2018-03-13 23:34 | XMS REPORT ---
Author Author MICHEL LALA [facility] Address [address] [place] [address] Care Team Providers Care Leather Stamper Name Role Phone MICHELARUNALALA Unavailable PROBLEMS Unknown Problems ALLERGIES Substance Reaction Event Type Date Status Paxil 20 Mg Tablet Unknown Non Drug Allergy Oct, Active ENCOUNTERS Encounter Location Date Diagnosis [facility] [address] [address] Oct, Nexplanon removal Z30.46 and BCP ( control pills) initiation Z30.011 [facility] [address] [address] Sep, [facility] [address] [id number] Sep, Dental examination Z01.20 [facility] [address] [address] Oct, [facility] [id number] [place] [address] Oct, [facility] [id number] [place] [address] Feb, [facility] [id number] [place] [address] Feb, [facility] [address] [address] Feb, [facility] [id number] [place] [address] Feb, [facility] [id number] [place] [address] Dec, [facility] [id number] [address] Oct, [facility] [id number] [address] Sep, [facility] [id number] [address] May, [facility] [id number] [place] [id number] May, [facility] [id number] [place] [address] Apr, [facility] [id number] [place] [id number] Apr, [facility] [id number] [place] [address] Feb, [facility] [id number] [place] [address] Dec, [facility] [id number] [address] Dec, [facility] [id number] [address] November, IMMUNIZATIONS No Known Immunizations SOCIAL HISTORY Never Assessed REASON FOR VISIT Nexplanon removal -- ksenia hernandez, consent signed PLAN OF CARE Activity Details Follow Up prn Reason: Pending Test TEST, URINE (IN HOUSE) VITAL SIGNS Height 65.75 in 2017-10-11 Weight 182.0 lbs 2017-10-11 Temperature 98.5 degrees Fahrenheit 2017-10-11 BMI 29.60 kg/m2 2017-10-11 Blood pressure systolic 120 mmHg 2017-10-11 Blood pressure diastolic 78 mmHg 2017-10-11 MEDICATIONS Medication Instructions Dosage Frequency Start Date End Date Duration Status Ortho Tri-Cyclen Lo 0.18/0.215/0.25 MG-25 MCG Orally Once a day 1 tablet 24h Oct, Active Lamictal 25 mg 1 tablet by Oral route 1 time per dayqhs X 2 weeks, then 2 tabs po qhs X 2 weeks, then start 100 mg Rx 30 May, 2012 Not-Taking RESULTS No Results PROCEDURES Procedure Date Ordered Result Body Site URINE TEST October 11, 2017 REMOVE DRUG IMPLANT DEVICE October 11, 2017 INSTRUCTIONS MEDICATIONS ADMINISTERED No Known Medications
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
[2018-03-14] MEDS ORDERED: fentaNYL INJECTION 100 MCG/2 ML AMP IVP ONE (00:45)
[2018-03-14 01:03] LABS: BILIRUBIN,URINE NEGATIVE (NEGATIVE); CLARITY,URINE VERY CLOUDY; COLOR,URINE YELLOW; GLUCOSE, URINE (UA) NEGATIVE (NEGATIVE); KETONES,URINE NEGATIVE (NEGATIVE); LEUKOCYTE ESTERASE ,URINE NEGATIVE (NEGATIVE); NITRITE,URINE NEGATIVE (NEGATIVE); PH,URINE 8 (5-9); PROTEIN,URINE NEGATIVE (NEGATIVE); UROBILINOGEN,URINE NORMAL (NORMAL)
[2018-03-14 01:19] LABS: BACTERIA,URINE LARGE /HPF; SQUAMOUS EPITHELIAL CELL,UR 0-2 /HPF
[2018-03-14 01:20] LABS: AMORPHOUS SEDIMENT,UR LARGE AMOR PHOSPHATE /LPF
[2018-03-14 01:24] LABS: BASOPHILS % (AUTO) 0 % (0-10); EOSINOPHILS # (AUTO) 0.1 10^3/uL (0.0-0.3); EOSINOPHILS % (AUTO) 0 % (0-10); HEMATOCRIT 36 % (35-52); HEMOGLOBIN 12.3 G/DL (11.5-16.0); LYMPHOCYTES # (AUTO) 2.7 X 10^3 (1.0-4.0); LYMPHOCYTES % (AUTO) 18 % (12-44); MEAN CORPUSCULAR HEMOGLOBIN 30 PG (25-34); MEAN CORPUSCULAR HGB CONC 35 G/DL (32-36); MEAN CORPUSCULAR VOLUME 87 FL (80-99); MEAN PLATELET VOLUME 9.5 FL (7.4-10.4); MONOCYTES # (AUTO) 0.6 X 10^3 (0.0-1.0); MONOCYTES % (AUTO) 4 % (0-12); NEUTROPHILS # (AUTO) 11.9 X 10^3 (1.8-7.8); NEUTROPHILS % (AUTO) 78 % (42-75); PLATELET COUNT 297 10^3/uL (130-400); RED BLOOD COUNT 4.11 10^6/uL (4.35-5.85); WHITE BLOOD COUNT 15.3 10^3/uL (4.3-11.0)
[2018-03-14 01:38] LABS: ALANINE AMINOTRANSFERASE 15 U/L (0-55); ALBUMIN 3.8 GM/DL (3.2-4.5); ALKALINE PHOSPHATASE 54 U/L (40-136); BILIRUBIN,TOTAL 0.3 MG/DL (0.1-1.0); BUN/CREATININE RATIO 19; CALCIUM 8.8 MG/DL (8.5-10.1); CARBON DIOXIDE 18 MMOL/L (21-32); CHLORIDE 113 MMOL/L (98-107); GFR ESTIMATED > 60; GLUCOSE 98 MG/DL (70-105); POTASSIUM 3.9 MMOL/L (3.6-5.0); SODIUM 139 MMOL/L (135-145); TOTAL PROTEIN 6.3 GM/DL (6.4-8.2)
[2018-03-14 02:11] LABS: LYMPHOCYTES % (MANUAL) 18 %; MONOCYTES % (MANUAL) 2 %; NEUTROPHILS % (MANUAL) 80 %
[2018-03-14] MEDS ORDERED: RX-ONDANSETRON 4 MG ODT (ZOFRAN) PPK #4 SL STA (02:16)
[2018-03-14 02:24] LABS: AMPHETAMINE SCREEN, URINE NEGATIVE (NEGATIVE); BARBITURATE SCREEN URINE NEGATIVE (NEGATIVE); BENZODIAZEPINES SCREEN URINE NEGATIVE (NEGATIVE); CANNABINOID SCREEN, URINE NEGATIVE (NEGATIVE); COCAINE SCREEN URINE NEGATIVE (NEGATIVE); METHADONE STAT NEGATIVE (NEGATIVE); METHAMPHETAMINE SCREEN URINE S NEGATIVE (NEGATIVE); OPIATE SCREEN URINE NEGATIVE (NEGATIVE); OXYCODONE STAT NEGATIVE (NEGATIVE); PROPOXYPHENE STAT NEGATIVE (NEGATIVE); TRICYCLIC ANTIDEPRESSANTS SCRE NEGATIVE (NEGATIVE)
[2018-03-14] MEDS ORDERED: PROP40TA5 PO (02:31)
[2018-03-14 02:41] VITALS: BP 119/82
== END 2018-03-14 02:43 | disposition home or self-care (01) ==
LOC: EDUNIT# 22:55 → ER 22:56
DX: G43.909 Migraine, unspecified, not intractable, without status migrainosus (principal); R11.2 Nausea with vomiting, unspecified; J45.909 Unspecified asthma, uncomplicated; F41.9 Anxiety disorder, unspecified; Z97.5 Presence of (intrauterine) contraceptive device; Z87.448 Personal history of other diseases of urinary system; Z88.5 Allergy status to narcotic agent; Z90.89 Acquired absence of other organs; Z87.59 Personal history of other complications of pregnancy, childbirth and the puerperium
CPT/HCPCS: 36415; 80053; 80306; 81000; 83735; 84703; 85007; 85027; 96361; 96374; 96375

== ENCOUNTER 2018-04-17 14:36 | Emergency (ER) | payer SELFPAY ==
[~2018-04-17] VITALS: Ht 165.1 cm; Wt 83.0 kg
[~2018-04-17 14:36] MED LIST changes: +PROP40TA5 PO
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
[2018-04-17] MEDS ORDERED: KETOROLAC 60 MG/2 ML VIAL IM ONE (15:00)
[2018-04-17] MEDS ORDERED: DEXAMETHASONE 10 MG/ML (DECADRON) 1 ML VIAL IM ONE (15:00)
[2018-04-17] MEDS ORDERED: AMOX500C2 PO (15:01)
--- NOTE | 2018-04-17 15:01 | ED Cough/URI ---
General Chief Complaint: Cough/Cold/Flu Symptoms Stated Complaint: EAR AND THROAT PAIN Source: patient Exam Limitations: no limitations History of Present Illness Date Seen by Provider: Apr 17, 2018 Time Seen by Provider: 14:57 Initial Comments To ER with pain to the right side of the face just inferior to the right ear. She was seen at [place] 2 days ago and she states that she was told she had otitis media but it was not infection. She was given prescription for prednisone but states that it was too expensive and the pain has worsened. No fevers or chills. Timing/Duration: getting worse Severity/Quality: moderate Associated Symptoms: facial pain Allergies and Home Medications Allergies Coded Allergies: hydrocodone (Verified Adverse Reaction, Mild, 07/21/17) Itching Home Medications Propranolol HCl 40 Mg Tablet, 40 MG PO BID Prescribed by: MICHAEL BELTRÁN on 03/14/18 0231 Patient Home Medication List Home Medication List Reviewed: Yes Review of Systems Review of Systems Constitutional: see HPI EENTM: see HPI Respiratory: no symptoms reported Cardiovascular: no symptoms reported Genitourinary: no symptoms reported Musculoskeletal: no symptoms reported Skin: no symptoms reported Psychiatric/Neurological: No Symptoms Reported Hematologic/Lymphatic: No Symptoms Reported Past Vwulcbw-Gcrswy-Fulsvs Hx Patient Social History Alcohol Use: Denies Use Recreational Drug Use: No Smoking Status: Current Everyday Smoker Type Used: Cigarettes 2nd Hand Smoke Exposure: No Recent Hopitalizations: No Immunizations Up To Date Tetanus Booster (TDap): Less than 5yrs PED Vaccines UTD: Yes Seasonal Allergies Seasonal Allergies: No Past Medical History Surgeries: Yes (R WRIST REPAIR , BMT'S X 4, DENTAL) Adenoidectomy, Section, Ear Surgery, Gallbladder, Orthopedic, Tonsillectomy Respiratory: Yes Asthma Cardiac: No Neurological: Yes Headaches /Migraines 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 Disorders: No BI CONSULTANT History: IUD Genitourinary: Yes UTI-Chronic Gastrointestinal: Yes Gall Bladder Disease Musculoskeletal: No Endocrine: No HEENT: Yes Chronic Ear Infection Cancer: No Psychosocial: Yes Anxiety Integumentary: No Blood Disorders: No Family Medical History No Pertinent Family Hx Physical Exam Capillary Refill : Height: 5'5.00" Weight: 175lbs. 0oz. 79.897838mb; 28.12 BMI Method:Stated General Appearance: WD/WN, no apparent distress Eyes: Bilateral Eye Normal Inspection, Bilateral Eye PERRL, Bilateral Eye EOMI HEENT: PERRL/EOMI, normal ENT inspection, TMs normal (there is some scarring to the right tympanic membrane but no erythema, no swelling or maceration or erythema of the external ear canal. There is a tender mobile lymph node just posterior to the angle of the mandible.), other (there is no erythema to the mastoid process. There is some right upper molar gingival tenderness to palpation but no swelling.) Respiratory: no respiratory distress, no accessory muscle use Gastrointestinal: non tender, soft Neurologic/Psychiatric: alert, normal mood/affect Skin: normal color, warm/dry Progress/Results/Core Measures Suspected Sepsis SIRS Temperature: Pulse: Respiratory Rate: Blood Pressure / Mean: Results/Orders Vital Signs/I&O Capillary Refill : Departure Impression Primary Impression: Lymphadenitis Disposition: HOME, SELF-CARE Condition: Stable Departure-Patient Inst. Decision time for Depature: 15:00 Referrals: TONG HAYDEN (PCP/Family) Primary Care Physician Patient Instructions: LYMPH NODE SWELLING Add. Discharge Instructions: 1. Tylenol and Motrin for pain. 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 Follow-up with your doctor within 1 week. Scripts Amoxicillin (Amoxicillin) 500 Mg Capsule 500 MG PO TID, #21 CAP Prov: NI DIOP APRN 04/17/18 NI DIOP APRN Apr 17, 2018 15:01
[2018-04-17 15:49] VITALS: BP 125/93
== END 2018-04-17 15:46 | disposition home or self-care (01) ==
LOC: EDUNIT# 14:36 → ER 14:37
DX: I88.9 Nonspecific lymphadenitis, unspecified (principal); J45.909 Unspecified asthma, uncomplicated; F41.9 Anxiety disorder, unspecified; G43.909 Migraine, unspecified, not intractable, without status migrainosus; F17.210 Nicotine dependence, cigarettes, uncomplicated; Z88.5 Allergy status to narcotic agent; Z97.5 Presence of (intrauterine) contraceptive device; Z87.440 Personal history of urinary (tract) infections; Z98.890 Other specified postprocedural states; Z90.89 Acquired absence of other organs
CPT/HCPCS: 99284

== ENCOUNTER 2018-10-28 18:27 | Emergency (ER) | payer MEDICAID, OTHER ==
[~2018-10-28] VITALS: Ht 165.1 cm; Wt 72.6 kg
[~2018-10-28 18:27] MED LIST changes: +AMOX500C2 PO
[2018-10-28] MEDS ORDERED: NS IV 1000 ML 1,000 ML IV ONE (19:22)
[2018-10-28 19:36] LABS: BASOPHILS % (AUTO) 0 % (0-10); EOSINOPHILS % (AUTO) 0 % (0-10); HEMATOCRIT 37 % (35-52); HEMOGLOBIN 12.7 G/DL (11.5-16.0); LYMPHOCYTES # (AUTO) 2.4 X 10^3 (1.0-4.0); LYMPHOCYTES % (AUTO) 16 % (12-44); MEAN CORPUSCULAR HGB CONC 34 G/DL (32-36); MEAN CORPUSCULAR VOLUME 86 FL (80-99); MEAN PLATELET VOLUME 9.4 FL (7.4-10.4); MONOCYTES # (AUTO) 0.7 X 10^3 (0.0-1.0); MONOCYTES % (AUTO) 5 % (0-12); NEUTROPHILS # (AUTO) 11.7 X 10^3 (1.8-7.8); NEUTROPHILS % (AUTO) 79 % (42-75); PLATELET COUNT 330 10^3/uL (130-400); RED CELL DISTRIBUTION WIDTH 12.7 % (10.0-14.5); WHITE BLOOD COUNT 14.8 10^3/uL (4.3-11.0)
[2018-10-28 19:38] LABS: MEAN CORPUSCULAR HEMOGLOBIN 29 PG (25-34)
--- NOTE | 2018-10-28 19:53 | ED GU-Female ---
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 pt also reports 6 episodes of vomiting since this morning as well. pt is 10 weeks and is A0. Nursing Sepsis Screen: No Definite Risk Source: patient Exam Limitations: no limitations History of Present Illness Date Seen by Provider: Oct 28, 2018 Time Seen by Provider: 19:17 Initial Comments Here with report of abdominal cramping feeling she is having contractions. She is approximately 10 weeks . This is her second . Does have some vaginal discharge. Describes decreased urination today and constipation. Timing/Duration: just prior to arrival, intermittent, gone now Severity/Quality: moderate Location: suprapubic Radiation: none Activities at Onset: none Sexual Sedalia History: less than 2 months ago, single partner Modifying Factors: Worsens With Movement; Improves With Resting Associated Symptoms: abdominal pain; No dysuria, No fever/chills; lower back pain; No nausea/vomiting Allergies and Home Medications Allergies Coded Allergies: hydrocodone (Verified Adverse Reaction, Mild, 07/21/17) Itching Home Medications Amoxicillin 500 Mg Capsule, 500 MG PO TID Prescribed by: NI DIOP on 04/17/18 1501 Propranolol HCl 40 Mg Tablet, 40 MG PO BID Prescribed by: MICHAEL BELTRÁN on 03/14/18 0231 Patient Home Medication List Home Medication List Reviewed: Yes Review of Systems Review of Systems Constitutional: see HPI; No chills, No fever EENTM: no symptoms reported Respiratory: no symptoms reported Cardiovascular: no symptoms reported Gastrointestinal: abdominal pain, constipation Genitourinary: other : Yes (decreased urination) Expected Date of Delivery: May 23, 2019 Musculoskeletal: no symptoms reported All Other Systemes Reviewed Negative Unless Noted: Yes Past Qnspnyl-Dtsriz-Ommnal Hx Past Med/Social Hx: Reviewed Nursing Past Med/Soc Hx Patient Social History Alcohol Use: Denies Use Recreational Drug Use: No Type Used: Cigarettes 2nd Hand Smoke Exposure: No Recent Foreign Travel: No Contact w/Someone Who Travel: No Recent Infectious Disease Expo: No Recent Hopitalizations: No Immunizations Up To Date Tetanus Booster (TDap): Less than 5yrs PED Vaccines UTD: Yes Seasonal Allergies Seasonal Allergies: No Past Medical History Surgeries: Yes (R WRIST REPAIR , BMT'S X 4, DENTAL) Adenoidectomy, Section, Ear Surgery, Gallbladder, Orthopedic, Tonsillectomy Respiratory: Yes Asthma Cardiac: No Neurological: Yes Headaches /Migraines Expected Date of Delivery: May 23, 2019 Hx : 2 Hx Para: 1 Hx Total # of Abortions (Sp): 0 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 Disorders: No 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 0oz. 72.617300qt; 28.12 BMI Method:Stated General Appearance: WD/WN, no apparent distress HEENT: PERRL/EOMI, pharynx normal Neck: full range of motion, supple Cardiovascular: regular rate, rhythm, no murmur Respiratory: lungs clear, normal breath sounds Gastrointestinal: soft, tenderness (mild suprapubic) Pelvic: discharge; No lesions, No mass; tender uterus; No vaginal bleeding Back: normal inspection, no CVA tenderness, no vertebral tenderness Extremities: non-tender, normal inspection Neurologic/Psychiatric: alert, oriented x 3 Skin: normal color, warm/dry Progress/Results/Core Measures Suspected Sepsis Recent Fever Within 48 Hours: No Infection Criteria Present: None New/Unexplained Altered Menta: No Sepsis Screen: No Definite Risk SIRS Temperature:99.6 Pulse: 95 Respiratory Rate: 18 Laboratory Tests 10/28/18 18:40: White Blood Count 14.8H Blood Pressure 117 /69 Mean: 85 Laboratory Tests 10/28/18 18:40: Creatinine 0.63, Platelet Count 330, Total Bilirubin 0.4 Results/Orders Lab Results Laboratory Tests Test 10/28/18 16:45 10/28/18 18:40 10/28/18 20:40 Range/Units Urine Color YELLOW Urine Clarity CLEAR Urine pH 6 5-9 Urine Specific [place] 1.025 H 1.016-1.022 Urine Protein 2+ H NEGATIVE Urine Glucose (UA) NEGATIVE NEGATIVE Urine Ketones 4+ H NEGATIVE Urine Nitrite NEGATIVE NEGATIVE Urine Bilirubin NEGATIVE NEGATIVE Urine Urobilinogen NORMAL NORMAL MG/DL Urine Leukocyte Esterase 2+ H NEGATIVE Urine RBC (Auto) 3+ H NEGATIVE Urine RBC 0-2 /HPF Urine WBC 25-50 H /HPF Urine Squamous Epithelial Cells 2-5 /HPF Urine Crystals NONE /LPF Urine Bacteria FEW H /HPF Urine Casts NONE /LPF Urine Mucus NEGATIVE /LPF Urine Culture Indicated YES White Blood Count 14.8 H 4.3-11.0 10^3/uL Red Blood Count 4.31 L 4.35-5.85 10^6/uL Hemoglobin 12.7 11.5-16.0 G/DL Hematocrit 37 35-52 % Mean Corpuscular Volume 86 80-99 FL Mean Corpuscular Hemoglobin 29 25-34 PG Mean Corpuscular Hemoglobin Concent 34 32-36 G/DL Red Cell Distribution Width 12.7 10.0-14.5 % Platelet Count 330 130-400 10^3/uL Mean Platelet Volume 9.4 7.4-10.4 FL Neutrophils (%) (Auto) 79 H 42-75 % Lymphocytes (%) (Auto) 16 12-44 % Monocytes (%) (Auto) 5 0-12 % Eosinophils (%) (Auto) 0 0-10 % Basophils (%) (Auto) 0 0-10 % Neutrophils # (Auto) 11.7 H 1.8-7.8 X 10^3 Lymphocytes # (Auto) 2.4 1.0-4.0 X 10^3 Monocytes # (Auto) 0.7 0.0-1.0 X 10^3 Eosinophils # (Auto) 0.0 0.0-0.3 10^3/uL Basophils # (Auto) 0.0 0.0-0.1 10^3/uL Neutrophils % (Manual) 74 % Lymphocytes % (Manual) 22 % Monocytes % (Manual) 2 % Eosinophils % (Manual) 1 % Basophils % (Manual) 1 % Band Neutrophils 0 % Blood Morphology Comment NORMAL Sodium Level 139 135-145 MMOL/L Potassium Level 3.8 3.6-5.0 MMOL/L Chloride Level 109 H 98-107 MMOL/L Carbon Dioxide Level 19 L 21-32 MMOL/L Anion Gap 11 5-14 MMOL/L Blood Urea Nitrogen 6 L 7-18 MG/DL Creatinine 0.63 0.60-1.30 MG/DL Estimat Glomerular Filtration Rate > 60 BUN/Creatinine Ratio 10 Glucose Level 76 70-105 MG/DL Calcium Level 9.7 8.5-10.1 MG/DL Corrected Calcium 9.7 8.5-10.1 MG/DL Total Bilirubin 0.4 0.1-1.0 MG/DL Aspartate Amino Transf (AST/SGOT) 11 5-34 U/L Alanine Aminotransferase (ALT/SGPT) 11 0-55 U/L Alkaline Phosphatase 40 40-136 U/L Total Protein 6.6 6.4-8.2 GM/DL Albumin 4.0 3.2-4.5 GM/DL My Orders Orders - JERSON PRITCHETT MD Cbc With Automated Diff (10/28/18 19:22) Comprehensive Metabolic Panel (10/28/18 19:22) Ua Culture If Indicated (10/28/18 19:22) Ns Iv 1000 Ml (Sodium Chloride 0.9%) (10/28/18 19:22) Wet Prep (10/28/18 19:22) Neisseria Gonorrhea Swab (10/28/18 19:22) Chlamydia Trachomatis Swab (10/28/18 19:22) Manual Differential (10/28/18 18:40) Urine Culture (10/28/18 16:45) D5 Ns 1000 Ml Iv Solution (Dextrose 5%/0 (10/28/18 20:17) Cephalexin Capsule (Keflex Capsule) (10/28/18 20:54) Metronidazole Tablet (Flagyl Tablet) (10/28/18 21:00) Medications Given in ED Current Medications Medications Dose Ordered Sig/Param Route Start Time Stop Time Status Last Admin Dose Admin Metronidazole 500 mg ONCE ONCE PO 10/28/18 21:00 10/28/18 21:01 DC 10/28/18 21:02 500 MG Sodium Chloride 1,000 ml @ 0 mls/hr Q0M ONCE IV 10/28/18 19:22 10/28/18 19:23 DC 10/28/18 19:45 1,000 MLS/HR Vital Signs/I&O 10/28/18 18:31 Temp 99.6 Pulse 95 Resp 18 B/P (MAP) 117/69 (85) Pulse Ox 98 O2 Delivery Room Air Capillary Refill : Less Than 3 Seconds Blood Pressure Mean: 85 Progress Note : Progress Note Seen and evaluated. Normal saline 1 L bolus. UA and labs ordered. Bedside ultrasound shows heart tones at approximately 165 and positive movement. Approximately 10-2/7 by crown-rump length. We will do pelvic exam and check wet prep and GC/chlamydia. Monitor patient. 2039: Pelvic complete and noted. Definitely has white/prescott discharge concerning for bacterial vaginosis but we will see what but prep shows. D5NS 1 L bolus given for ketones in urine. Monitor patient. 2104: Wet prep does show findings of clue cells. Keflex 500 mg by mouth for probable urinary tract infection and Flagyl 500 mg by mouth for bacterial vaginosis. Discharged home with return precautions. Patient verbalize understanding instructions and agreement with plan. Departure Impression Primary Impression: Bacterial vaginosis Additional Impressions: Urinary tract infection Qualified Codes: N30.00 - Acute cystitis without hematuria Acute dehydration Disposition: HOME, SELF-CARE Condition: Improved Departure-Patient Inst. Decision time for Depature: 21:14 Referrals: TONG HAYDEN (PCP/Family) Primary Care Physician Patient Instructions: Bacterial Vaginosis, Urinary Tract Infections in Adults Add. Discharge Instructions: All discharge instructions reviewed with patient and/or family. Voiced understanding. Take medications as directed. Follow-up with your OB doctor this week for recheck and further evaluation. Return for worse pain, fever, vomiting, weakness , breathing problems or other concerns as needed. Scripts Metronidazole (Metronidazole) 500 Mg Tablet 500 MG PO BID, #13 TAB 0 Refills Prov: JERSON PRITCHETT MD 10/28/18 Cephalexin (Cephalexin) 500 Mg Tablet 500 MG PO BID, #13 TAB 0 Refills Prov: JERSON PRITCHETT MD 10/28/18 Copy Copies To 1: LALA PEARSON MD, TIMOTHY D MD Oct 28, 2018 19:53
[2018-10-28 19:56] LABS: BILIRUBIN,URINE NEGATIVE (NEGATIVE); CLARITY,URINE CLEAR; COLOR,URINE YELLOW; GLUCOSE, URINE (UA) NEGATIVE (NEGATIVE); KETONES,URINE 4+ (NEGATIVE); LEUKOCYTE ESTERASE ,URINE 2+ (NEGATIVE); NITRITE,URINE NEGATIVE (NEGATIVE); PH,URINE 6 (5-9); PROTEIN,URINE 2+ (NEGATIVE); UROBILINOGEN,URINE NORMAL (NORMAL)
[2018-10-28 19:59] LABS: BAND NEUTROPHILS 0 %; BASOPHILS % (MANUAL) 1 %; EOSINOPHILS % (MANUAL) 1 %; LYMPHOCYTES % (MANUAL) 22 %; MONOCYTES % (MANUAL) 2 %; NEUTROPHILS % (MANUAL) 74 %; RBC MORPH NORMAL
[2018-10-28 20:06] LABS: BACTERIA,URINE FEW /HPF; RBC,URINE 0-2 /HPF; WBC,URINE 25-50 /HPF
[2018-10-28 20:06] LABS: ALANINE AMINOTRANSFERASE 11 U/L (0-55); ALKALINE PHOSPHATASE 40 U/L (40-136); BILIRUBIN,TOTAL 0.4 MG/DL (0.1-1.0); BUN/CREATININE RATIO 10; CALCIUM 9.7 MG/DL (8.5-10.1); CARBON DIOXIDE 19 MMOL/L (21-32); CHLORIDE 109 MMOL/L (98-107); CREATININE SERUM 0.63 MG/DL (0.60-1.30); GFR ESTIMATED > 60; GLUCOSE 76 MG/DL (70-105); POTASSIUM 3.8 MMOL/L (3.6-5.0); SODIUM 139 MMOL/L (135-145); TOTAL PROTEIN 6.6 GM/DL (6.4-8.2)
[2018-10-28] MEDS ORDERED: D5 NS 1000 ML IV SOLUTION 1,000 ML IV STA (20:17)
[2018-10-28] MEDS ORDERED: CEPHALEXIN 250 MG (KEFLEX) CAP PO STA (20:54)
[2018-10-28] MEDS ORDERED: metroNIDAZOLE 500 MG (FLAGYL) TAB PO ONE (21:00)
[2018-10-28] MEDS ORDERED: CEPH500T PO (21:21)
[2018-10-28] MEDS ORDERED: METR-145 PO (21:21)
[2018-10-28 21:40] VITALS: BP 101/72
== END 2018-10-28 21:40 | disposition home or self-care (01) ==
LOC: EDUNIT# 18:27 → ER 18:28
DX: O23.41 Unspecified infection of urinary tract in pregnancy, first trimester (principal); O23.591 Infection of other part of genital tract in pregnancy, first trimester; B96.89 Other specified bacterial agents as the cause of diseases classified elsewhere; O99.281 Endocrine, nutritional and metabolic diseases complicating pregnancy, first trimester; E86.0 Dehydration; O99.511 Diseases of the respiratory system complicating pregnancy, first trimester; J45.909 Unspecified asthma, uncomplicated; O99.351 Diseases of the nervous system complicating pregnancy, first trimester; G43.909 Migraine, unspecified, not intractable, without status migrainosus; O99.341 Other mental disorders complicating pregnancy, first trimester; F41.9 Anxiety disorder, unspecified; Z87.440 Personal history of urinary (tract) infections; Z87.19 Personal history of other diseases of the digestive system; Z88.5 Allergy status to narcotic agent; Z98.890 Other specified postprocedural states; Z90.89 Acquired absence of other organs; Z3A.10 10 weeks gestation of pregnancy
CPT/HCPCS: 36415; 80053; 81000; 85007; 85027; 87088; 87210; 87491; 87591; 99284

== ENCOUNTER → 2019-01-02 | Outpatient (CLI) | payer MEDICAID ==
[~2019-01-02] MED LIST changes: +CEPH500T PO; +METR-145 PO
--- NOTE | 2019-01-02 15:46 | Diagnostic Imaging Report ---
INDICATION: survey. TECHNIQUE: Multiple real-time grayscale images were obtained over the gravid uterus. COMPARISON: None. FINDINGS: There is a single live fetus in a transverse presentation, head to maternal left. heart rate was recorded at 143 beats per minute. Placenta is posterior. Amniotic fluid volume is normal. Cervical length is 4.5 cm. survey shows kidneys, bladder, and stomach to be unremarkable. brain is unremarkable. There is a three-vessel cord with normal insertion. The spine is unremarkable. Four-chamber heart view could not be seen due to lie. Biometrical measurements are as follows: Biparietal 4.46 cm, age 19 weeks 4 days. Head circumference 17.03 cm, age 19 weeks 5 days. Abdominal circumference 14.14 cm, age 19 weeks 4 days. Femur length 3.16 cm, age 19 weeks 6 days. Sonographic estimate age: 19 weeks 5 days. Sonographic estimated date of delivery: 05/24/19. Estimated Weight: 305 gm (+/- 45 gm). LMP percentile: 34%. heart rate: 143 beats per minute. number: 1 of 1. IMPRESSION: Single live IUP of 19 weeks 5 days gestational age. Estimated date of confinement sonographically is 05/24/2019. survey is unremarkable, although the four-chamber heart view could not be seen due to lie. Dictated by: Dictated on workstation # [id number]
== END ==
LOC: RAD 13:47
PROVIDERS: ATTEND Obstetrics & Gynecology
DX: Z36.89 Encounter for other specified antenatal screening (principal); Z3A.19 19 weeks gestation of pregnancy
CPT/HCPCS: 76805

== ENCOUNTER 2019-02-07 14:29 | Outpatient (CLI) | payer MEDICAID ==
[~2019-02-07] VITALS: Ht 165.1 cm; Wt 80.3 kg
--- NOTE | 2019-02-07 14:24 | NUR ---
WAYLON PLAZA presented to unit via ambulation, accompanied by friend, with c/o CONTRACTIONS since 0 today. Pt. weighed, gowned, voided, and to bed. EFHM and TOCO applied, VS taken. Pt. oriented to bed controls, call light, TV, heat, and A/C controls.
--- NOTE | 2019-02-07 14:30 | NUR ---
pt reports decreased FM since this morning. "barely movement". reports kicks x2 today. states cramping 1.5-2 hours prior to arrival. reports cramping every 4 mins, lasting 1.5-2 mins. upper abd tender to palpation upon exam. denies urinary sx's except for frequency.
[2019-02-07 14:35] VITALS: BP 114/63
[2019-02-07 15:00] LABS: BILIRUBIN,URINE NEGATIVE (NEGATIVE); CLARITY,URINE VERY CLOUDY; COLOR,URINE YELLOW; GLUCOSE, URINE (UA) NEGATIVE (NEGATIVE); KETONES,URINE NEGATIVE (NEGATIVE); LEUKOCYTE ESTERASE ,URINE 3+ (NEGATIVE); NITRITE,URINE NEGATIVE (NEGATIVE); PH,URINE 6.5 (5-9); PROTEIN,URINE 1+ (NEGATIVE); UROBILINOGEN,URINE NORMAL (NORMAL)
[2019-02-07 15:10] LABS: BACTERIA,URINE MODERATE /HPF; RBC,URINE >100 /HPF
--- NOTE | 2019-02-07 15:29 | NUR ---
was called. lab results reviewed. POC discussed. SVE, may dismiss to home if cervix closed.
--- NOTE | 2019-02-07 15:29 | NUR ---
SVE closed, thick. monitor dc'd. POC reviewed, states understanding
[2019-02-07] MEDS ORDERED: ASPI-586 PO (15:35)
[2019-02-07] MEDS ORDERED: PREN1TAB79 PO (15:35)
--- NOTE | 2019-02-07 15:43 | NUR ---
dismissal instructions given, verbalizes understanding. instructed pt to follow up as scheduled or prn. encouraged increased water intake. signature page signed, placed on chart. pt ambulated to private vehicle with no sx's of distress noted.
--- NOTE | 2019-02-20 14:55 | Physician Query-Final Dx ---
MYA MCCORD 02/20/19 1455: Clinic Account Progress/Dx Physician Query: Please give diagnosis Need diagnosis and weeks of gestation Date of Service Feb 07, 2019 at 14:29 PARISH LOZA DO 02/20/19 1852: Clinic Account Progress/Dx DIAGNOSIS: Diagnosis 28 week IUP Uterine cramps Decreased movement MYA MCCORD Feb 20, 2019 14:55 PARISH LOZA DO Feb 20, 2019 18:52
== END 2019-02-07 15:43 | disposition home or self-care (01) ==
LOC: WSo 14:29 → LDRP 14:30 → WSo 15:43
PROVIDERS: ATTEND Obstetrics & Gynecology
DX: O36.8130 Decreased fetal movements, third trimester, not applicable or unspecified (principal); Z3A.28 28 weeks gestation of pregnancy
CPT/HCPCS: 81000; 87088; 99213

== ENCOUNTER 2019-03-30 12:30 | Outpatient (CLI) | payer MEDICAID ==
[~2019-03-30] VITALS: Ht 165.1 cm; Wt 75.0 kg
[~2019-03-30 12:30] MED LIST changes: +ASPI-586 PO; +PREN1TAB79 PO
--- NOTE | 2019-03-30 12:40 | NUR ---
WAYLON PLAZA presented to unit via AMBULATION from ED, accompanied by FRIEND, with c/o BLOODY DISHCARGE,CRAMPING,PELVIC PAIN. WAYLON PLAZA weighed, gowned, voided, and to bed. EFHM and TOCO applied, VS taken. WAYLON PLAZA oriented to bed controls, call light, TV, heat, and A/C controls.
[2019-03-30 12:43] VITALS: BP 120/94
[2019-03-30 12:50] VITALS: BP 115/65
[2019-03-30 13:14] LABS: BILIRUBIN,URINE NEGATIVE (NEGATIVE); COLOR,URINE YELLOW; GLUCOSE, URINE (UA) NEGATIVE (NEGATIVE); KETONES,URINE NEGATIVE (NEGATIVE); LEUKOCYTE ESTERASE ,URINE 3+ (NEGATIVE); NITRITE,URINE NEGATIVE (NEGATIVE); PH,URINE 6.5 (5-9); PROTEIN,URINE 2+ (NEGATIVE); UROBILINOGEN,URINE NORMAL (NORMAL)
[2019-03-30 13:27] LABS: BACTERIA,URINE FEW /HPF; CLARITY,URINE VERY CLOUDY; WBC,URINE TNTC /HPF
--- NOTE | 2019-03-30 13:30 | NUR ---
SVE BY THIS RN CLOSED. NO LEAKING OR BLEEDING ON EXAM GLOVE. ODOR NOTED, VAGINAL TISSUE RED AND AREAS OF EXCORIATION WERE RECENT BLEEDING WAS NOTED THIS AM BY PATIENT, WHITE DISCHARGE NOTED ON INNER LABIA. PATIENT REPORTS PERINEAL PAIN 02/15. REVIEWED UA RESULTS WITH PATIENT. VERBALIZED UNDERSTANDING.
--- NOTE | 2019-03-30 13:35 | NUR ---
DR JONES NOTIFIED OF PATIENT C/O AND ASSESSMENT FINDINGS, LAB RESULTS. NEW ORDERS RECEIVED.
--- NOTE | 2019-03-30 13:50 | NUR ---
EFM REMOVED, REACTIVE NST. RARE UTERINE IRRITABILITY NOTED, NO CONTRACTIONS NOTED OR PALPATED BY RN. 3CM YELLOW/GREEN BRUISE NOTED ON RIGHT SIDE OF UMBILICUS. RN QUESTIONED PATIENT ABOUT THE CONTUSION. PATIENT DENIES KNOWLEDGE OF CAUSE OF INJURY THAT RESULTED IN BRUISING. NO OTHER BRUISES NOTED. WITH EXAM
--- NOTE | 2019-03-30 13:50 | NUR ---
FHR BASELINE 140 'S. ACCELS NOTED, NO DECELERATIONS, MODERATE VARIABILITY.
--- NOTE | 2019-03-30 14:05 | NUR ---
OUT OF WS VIA AMBULATION WITH FATHER, NO ACTIVE LABOR, RX CALLED TO PHARMACY. TALKING WITH FATHER AND RN. HOME VIA PRIVATE VEHICLE.
--- NOTE | 2019-03-31 08:57 | Physician Query-Final Dx ---
LAZARO PICKETT 03/31/19 0857: Clinic Account Progress/Dx Physician Query: Please give diagnosis Please include # weeks gestation Date of Service Mar 30, 2019 at 12:30 JAIR JONES DO 04/01/19 0651: Clinic Account Progress/Dx Physician Query: Please give diagnosis DIAGNOSIS: Diagnosis Intrauterine at 32 weeks 2. Pelvic Pain 3. Vaginal Discharge LAZARO PICKETT Mar 31, 2019 08:57 JAIR JONES DO Apr 01, 2019 06:51
--- NOTE | 2019-04-01 06:30 | Progress Note ---
Standard Progress Note Progress Notes/Assess & Plan Time Seen by a Provider: 00:00 Final Diagnosis Intrauterine at 32 weeks 2. Pelvic Pain 3. Vaginal Discharge JAIR JONES DO Apr 01, 2019 06:30
== END 2019-03-30 14:05 | disposition home or self-care (01) ==
LOC: WSo 12:30 → LDRP 12:30 → WSo 14:05
PROVIDERS: ATTEND Obstetrics & Gynecology
DX: O46.93 Antepartum hemorrhage, unspecified, third trimester (principal); O26.893 Other specified pregnancy related conditions, third trimester; R10.2 Pelvic and perineal pain; Z3A.32 32 weeks gestation of pregnancy
CPT/HCPCS: 81000; 87088; 99213

== ENCOUNTER 2019-04-10 11:28 | Outpatient (CLI) | payer MEDICAID ==
[~2019-04-10] VITALS: Ht 165 cm; Wt 80.4 kg
--- NOTE | 2019-04-10 11:20 | NUR ---
WAYLON PLAZA presented to unit via ambulation from home, accompanied by friends, with c/o POSS RUPTURED MEMBRANES. WAYLON PLAZA weighed, gowned, voided, and to bed. EFHM and TOCO applied, VS taken. WAYLON PLAZA oriented to bed controls, call light, TV, heat, and A/C controls.
[2019-04-10 11:35] VITALS: BP 126/75
--- NOTE | 2019-04-10 11:50 | NUR ---
Dr. Calhoun on unit. Notified of pt arrival c/o gush of fluid in shower this am around 0945. Pt unable to assess fluid so does not know if it was clear or not. Pt reports feeling cramping about every 2-5 min since the gush. notified of rpt C/S, due 05/23 (33.6wks) nitrazine negative, SVE, ctx pattern, VS, and pt report of intercourse this am. Orders to send UA, if negative, pt may D/C home
[2019-04-10 12:19] LABS: BILIRUBIN,URINE NEGATIVE (NEGATIVE); CLARITY,URINE CLEAR; COLOR,URINE YELLOW; GLUCOSE, URINE (UA) NEGATIVE (NEGATIVE); KETONES,URINE NEGATIVE (NEGATIVE); LEUKOCYTE ESTERASE ,URINE 1+ (NEGATIVE); NITRITE,URINE NEGATIVE (NEGATIVE); PH,URINE 7 (5-9); PROTEIN,URINE NEGATIVE (NEGATIVE)
[2019-04-10 12:29] LABS: BACTERIA,URINE TRACE /HPF
--- NOTE | 2019-04-10 12:45 | NUR ---
Dr. Calhoun notifed of negative UA, D/C pt to home.
--- NOTE | 2019-04-10 13:00 | NUR ---
Discharge instructions explained to pt with copy provided to pt. Pt verbalizes understanding of teaching, signs to verify and denies questions or concerns. States she does not have follow up scheduled, but will stop by the office on the way out to schedule. Ambulates off unit to private vehicle accompanied by friends. NO s/s of distress noted.
--- NOTE | 2019-04-17 08:31 | Physician Query-Final Dx ---
LAZARO PICKETT 04/17/19 0831: Clinic Account Progress/Dx Physician Query: Please give diagnosis Please enter # weeks gestation Date of Service Apr 10, 2019 at 11:28 PARISH LOZA DO 04/17/192006: Clinic Account Progress/Dx DIAGNOSIS: Diagnosis 32 week iup uterine cramps LAZARO PICKETT Apr 17, 2019 08:31 PARISH LOZA DO Apr 17, 2019 20:07
== END 2019-04-10 13:00 | disposition home or self-care (01) ==
LOC: WSo 11:28 → LDRP 11:32 → WSo 13:00
PROVIDERS: ATTEND Obstetrics & Gynecology
DX: O26.893 Other specified pregnancy related conditions, third trimester (principal); R10.2 Pelvic and perineal pain; Z3A.32 32 weeks gestation of pregnancy
CPT/HCPCS: 81000; 99213

== ENCOUNTER 2019-04-25 16:21 | Outpatient (CLI) | payer MEDICAID ==
[~2019-04-25] VITALS: Ht 165.1 cm; Wt 79.5 kg
--- NOTE | 2019-04-25 16:15 | NUR ---
WAYLON PLAZA presented to unit via [facility], with c/o CTXS, VAG BLEEDING. WAYLON PLAZA weighed, gowned, voided, and to bed. EFHM and TOCO applied, VS taken. WAYLON PLAZA oriented to bed controls, call light, TV, heat, and A/C controls.
[2019-04-25 16:30] VITALS: BP 116/71
[2019-04-25 16:42] LABS: BILIRUBIN,URINE NEGATIVE (NEGATIVE); CLARITY,URINE CLEAR; COLOR,URINE YELLOW; GLUCOSE, URINE (UA) NEGATIVE (NEGATIVE); KETONES,URINE NEGATIVE (NEGATIVE); LEUKOCYTE ESTERASE ,URINE 2+ (NEGATIVE); NITRITE,URINE NEGATIVE (NEGATIVE); PH,URINE 7 (5-9); PROTEIN,URINE NEGATIVE (NEGATIVE)
[2019-04-25 17:01] VITALS: BP 116/71
[2019-04-25 17:01] LABS: BACTERIA,URINE TRACE /HPF
--- NOTE | 2019-04-25 17:12 | NUR ---
DR. JONES NOTIFIED OF PT'S ARRIVAL, C/O, GESTATION, REVIEW OF STRIP, NO BLEEDING NOTED, UA RESULTS, VS. ORDERED FOR SVE AND IF <2 CM, DISCHARGE HOME.
--- NOTE | 2019-04-25 17:35 | NUR ---
DISCHARGE PAPERS PROVIDED AND REVIEWED WITH PT, PT VERBALIZES UNDERSTANDING AND DENIES ANY QUESTIONS AT THIS TIME. PAPER SIGNED.
--- NOTE | 2019-04-25 17:38 | NUR ---
PT DISCHARGED FROM [facility] TO [facility] VIA AMBULATORY IN STABLE CONDITION.
--- NOTE | 2019-04-28 08:39 | Physician Query-Final Dx ---
LAZARO PICKETT 04/28/19 0839: Clinic Account Progress/Dx Physician Query: Please give diagnosis Please include # weeks gestation Date of Service Apr 25, 2019 at 16:21 JAIR JONES DO 05/12/19 0715: Clinic Account Progress/Dx Physician Query: Please give diagnosis (Intrauteirne at 35 6/7 weeks 2. Threatened Labor 3. Third Trimester Vaginal Bleeding) Date of Service April 25, 2019 DIAGNOSIS: Diagnosis Intrauteirne at 35 6/7 weeks 2. Threatened Labor 3. Third Trimester Vaginal Bleeding LAZARO PICKETT Apr 28, 2019 08:39 POSSJAIR DANG DO May 12, 2019 07:15 POS
--- NOTE | 2019-04-28 08:40 | Physician Query-Final Dx ---
Clinic Account Progress/Dx Physician Query: Please give diagnosis Please include # weeks gestation Date of Service Apr 25, 2019 at 16:21 LAZARO PICKETT Apr 28, 2019 08:39
== END 2019-04-25 17:38 | disposition home or self-care (01) ==
LOC: WSo 16:21 → LDRP 16:21 → WSo 17:38
PROVIDERS: ATTEND Obstetrics & Gynecology
DX: O46.93 Antepartum hemorrhage, unspecified, third trimester (principal); O60.03 Preterm labor without delivery, third trimester; Z3A.35 35 weeks gestation of pregnancy
CPT/HCPCS: 81000; 87088; 99213

== ENCOUNTER 2019-04-25 18:30 | Outpatient (CLI) | payer MEDICAID ==
[~2019-04-25] VITALS: Ht 165.1 cm; Wt 79.5 kg
--- NOTE | 2019-04-25 18:35 | NUR ---
WAYLON PLAZA presented to unit via AMBULATORY from 1ST FLOOR, accompanied by THIS RN, with c/o CONTRACTIONS/ABD PAIN. WAYLON PLAZA weighed, gowned, voided, and to bed. EFHM and TOCO applied, VS taken. WAYLON PLAZA oriented to bed controls, call light, TV, heat, and A/C controls.
[2019-04-25 18:45] VITALS: BP 122/81
[2019-04-25 19:04] VITALS: BP 122/81
--- NOTE | 2019-04-25 19:34 | NUR ---
DR. JONES NOTIFIED OF PT'S ARRIVAL, PRESENTED BACK OUT APPROX AN HOUR AFTER DISCHARGE, WALKED TO [facility], INTENSE PAIN, REVIEW OF STRIP, SVE. ORDERS RECEIVED.
[2019-04-25] MEDS ORDERED: CYCLOBENZAPRINE 10 MG (FLEXERIL) TAB PO NR (19:45)
--- NOTE | 2019-04-25 19:50 | NUR ---
Discharge instructions reviewed with pt. Pt walks out with family at this time.
--- NOTE | 2019-04-28 08:43 | Physician Query-Final Dx ---
LAZARO PICKETT 04/28/19 0843: Clinic Account Progress/Dx Physician Query: Please give diagnosis Please include # weeks gestation Date of Service Apr 25, 2019 at 18:30 JAIR JONES DO 05/12/19 0717: Clinic Account Progress/Dx Physician Query: Please give diagnosis (Intrauteirne at 35 6/7 weeks 2. Threatened Labor 3. Third Trimester Vaginal Bleeding) Date of Service April 25, 2019 DIAGNOSIS: Diagnosis Intrauterine at 35 6/7 weeks 2. Threatened Labor 3. Third Trimester Vaginal Bleeding LAZARO PICKETT Apr 28, 2019 08:43 JAIR BRAVO DO May 12, 2019 07:17 POS
== END 2019-04-25 19:50 | disposition home or self-care (01) ==
LOC: LDRP 18:30 → WSo 18:30
PROVIDERS: ATTEND Obstetrics & Gynecology
DX: O46.93 Antepartum hemorrhage, unspecified, third trimester (principal); O60.03 Preterm labor without delivery, third trimester; Z3A.35 35 weeks gestation of pregnancy
CPT/HCPCS: 99213

== ENCOUNTER 2019-05-05 13:15 | Outpatient (CLI) | payer MEDICAID ==
[~2019-05-05] VITALS: Ht 165.1 cm; Wt 81.5 kg
--- NOTE | 2019-05-05 13:10 | NUR ---
WAYLON PLAZA presented to unit via ambulation from home, accompanied by s/o, with c/o DECREASED MOVEMENT, ABD PAIN. WAYLON PLAZA weighed, gowned, voided, and to bed. EFHM and TOCO applied, VS taken. WAYLON PLAZA oriented to bed controls, call light, TV, heat, and A/C controls.
[2019-05-05 13:16] VITALS: BP 141/77
[2019-05-05 13:32] VITALS: BP 141/77
--- NOTE | 2019-05-05 13:40 | NUR ---
Nisreen Rn text Dr Calhoun of pt arrival. 1868 Dr Calhoun called to inquire of pt status. This nurse informed him of pt's complaints of cramping and decreased movement. accelerations noted, some contractions with uterine irritability also noted. Cervix 1/2 cm, thick and -2. Denies bleeding or fluid leakage. Awaiting UA results. 1510 Pt discharged to home. OB outpt discharge instructions given. Verbalized understanding.
[2019-05-05 14:10] LABS: BILIRUBIN,URINE NEGATIVE (NEGATIVE); CLARITY,URINE CLEAR; COLOR,URINE YELLOW; GLUCOSE, URINE (UA) NEGATIVE (NEGATIVE); KETONES,URINE NEGATIVE (NEGATIVE); LEUKOCYTE ESTERASE ,URINE 2+ (NEGATIVE); NITRITE,URINE NEGATIVE (NEGATIVE); PH,URINE 7 (5-9); PROTEIN,URINE NEGATIVE (NEGATIVE)
[2019-05-05 14:14] VITALS: BP 119/76
--- NOTE | 2019-05-05 14:15 | NUR ---
Pt has a headache today and spots before her eyes. has had her caffeine today. BP119/
[2019-05-05 14:32] LABS: BACTERIA,URINE NEGATIVE /HPF
[2019-05-05 15:10] VITALS: BP 119/76
--- NOTE | 2019-05-06 08:31 | Physician Query-Final Dx ---
LAZARO PICKETT 05/06/19 0831: Clinic Account Progress/Dx Physician Query: Please give diagnosis Please include # weeks gestation Date of Service May 05, 2019 at 13:15 PARISH LOZA DO 05/06/19 1052: Clinic Account Progress/Dx DIAGNOSIS: Diagnosis 37 week iup Uterine cramping Decreased movement LAZARO PICKETT May 06, 2019 08:31 POSPARISH LOZA DO May 06, 2019 10:52 POS
== END 2019-05-05 15:10 ==
LOC: WSo 13:15 → LDRP 13:15 → WSo 15:10
PROVIDERS: ATTEND Obstetrics & Gynecology
DX: O36.8130 Decreased fetal movements, third trimester, not applicable or unspecified (principal); O62.8 Other abnormalities of forces of labor; Z3A.37 37 weeks gestation of pregnancy
CPT/HCPCS: 81000; 87088; 99213

== ENCOUNTER 2019-05-08 12:33 | Outpatient (CLI) | payer MEDICAID ==
--- NOTE | 2019-05-08 12:20 | NUR ---
WAYLON PLAZA presented to unit via ambulation, accompanied by family , with c/o migraine since 399 this a.m. Pt. weighed, gowned, voided, and to bed. EFHM and TOCO applied, VS taken. Pt. oriented to bed controls, call light, TV, heat, and A/C controls.
--- NOTE | 2019-05-08 12:25 | NUR ---
pt reports c/o's METZ and nausea since 0400 this a.m. denies visual changes with METZ. "whole head" hurts. states took Tylenol @ 0400, then "threw it up". c/o vomiting every hour since 0600 this a.m. c/o leaking since approx 30 mins prior to arrival to hospital. denies color or odor to D/C. cramping since 2300 last noc.
[2019-05-08 12:30] VITALS: BP_SYST 120; BP_SYST 121; BP_DIAS 77; BP_DIAS 79
[2019-05-08 12:35] VITALS: BP 120/77
[2019-05-08 12:45] VITALS: BP 125/79
--- NOTE | 2019-05-08 12:48 | NUR ---
nitrazine negative. strong urine odor present.
--- NOTE | 2019-05-08 12:49 | NUR ---
SVE 1cm, thick, unable to determine presenting part.
[2019-05-08 12:55] VITALS: BP 127/81
[2019-05-08 12:58] LABS: BILIRUBIN,URINE NEGATIVE (NEGATIVE); GLUCOSE, URINE (UA) NEGATIVE (NEGATIVE); KETONES,URINE 2+ (NEGATIVE); LEUKOCYTE ESTERASE ,URINE 1+ (NEGATIVE); NITRITE,URINE NEGATIVE (NEGATIVE); PH,URINE 7 (5-9); PROTEIN,URINE NEGATIVE (NEGATIVE)
[2019-05-08 13:05] VITALS: BP 125/78
[2019-05-08 13:07] LABS: BACTERIA,URINE FEW /HPF; CLARITY,URINE CLEAR; COLOR,URINE YELLOW
--- NOTE | 2019-05-08 13:13 | NUR ---
was called r/t pt's admission c/o's. reviewed monitor tracing, SVE and UA results. dismissal orders received.
--- NOTE | 2019-05-08 13:15 | NUR ---
Monitors dc'd. POC reviewed with pt and family members
--- NOTE | 2019-05-08 13:25 | NUR ---
dismissal instructions given, verbalized understanding. instructed pt to keep Dr's appointments. encourage pt and family to stop by Dr's office prior to leaving hospital to schedule appointment for next week. signature page signed, placed on chart.
[2019-05-08] MEDS ORDERED: FLU QUADRIvalent (5+ YOA) 2019-2020 (AFLURIA) 0.5 ML IM ONE (13:30)
--- NOTE | 2019-05-08 13:30 | NUR ---
pt ambulated to private vehicle with family @ side. pt stable with no sx's of distress noted.
--- NOTE | 2019-05-09 08:28 | Physician Query-Final Dx ---
LAZARO PICKETT 05/09/19 0828: Clinic Account Progress/Dx Physician Query: Please give diagnosis Please include # weeks gestation Date of Service May 08, 2019 at 12:33 PARISH LOZA DO 05/10/19 2213: Clinic Account Progress/Dx DIAGNOSIS: Diagnosis 37 week iup Decreased movement Uterine cramps Headache LAZARO PICKETT May 09, 2019 08:28 POSPARISH LOZA DO May 10, 2019 22:13 POS
== END 2019-05-08 13:30 | disposition home or self-care (01) ==
LOC: LDRP 12:33 → WSo 12:33
PROVIDERS: ATTEND Obstetrics & Gynecology
DX: O26.893 Other specified pregnancy related conditions, third trimester (principal); O36.8130 Decreased fetal movements, third trimester, not applicable or unspecified; N94.89 Other specified conditions associated with female genital organs and menstrual cycle; R51 Headache; Z3A.37 37 weeks gestation of pregnancy
CPT/HCPCS: 81000; 87088; 90471; 99213

== ENCOUNTER 2019-05-14 10:11 | Outpatient (CLI) | payer MEDICAID ==
[~2019-05-14] VITALS: Ht 165.1 cm; Wt 80.0 kg
[2019-05-14 10:45] VITALS: BP 134/82
== END 2019-05-14 10:30 | disposition home or self-care (01) ==
LOC: PREOP 10:11
PROVIDERS: ATTEND Obstetrics & Gynecology
DX: Z01.818 Encounter for other preprocedural examination (principal)
CPT/HCPCS: 87081

== ENCOUNTER 2019-05-16 05:19 | Inpatient (IN) | payer MEDICAID ==
[~2019-05-16] VITALS: Ht 165.1 cm; Wt 80.3 kg
[2019-05-16] VITALS (9 sets, daily range): BP systolic 93–125; BP diastolic 58–84
[~2019-05-16 05:19] MED LIST changes: +CITRIC ACID/SOB CIT (BICITRA) 30 ML UDC ONE; +FAMOTIDINE 20MG/2ML IV (PEPCID) ONE; +METOCLOPRAMIDE INJ 10 MG/2 ML (REGLAN) ONE; +WATER (STERILE) FOR INJECTION 10 ML ONE; +ceFAZolin INJECTION 1,000 MG ONE
--- NOTE | 2019-05-16 05:20 | NUR ---
WAYLON PLAZA presented to unit via from ED, accompanied by S/O, FOR REPEAT C/SECTION. WAYLON PLAZA weighed, gowned, voided, and to bed. EFHM and TOCO applied, VS taken. WAYLON PLAZA oriented to bed controls, call light, TV, heat, and A/C controls.
[2019-05-16] MEDS ORDERED: ceFAZolin INJECTION 1,000 MG in WATER (STERILE) FOR INJECTION 10 ML IV ONE (05:45)
[2019-05-16] MEDS ORDERED: LACTATED RINGERS 1,000 ML BAG IV ONE (06:00)
[2019-05-16 06:29] LABS: BASOPHILS % (AUTO) 0 % (0-10); EOSINOPHILS # (AUTO) 0.1 10^3/uL (0.0-0.3); EOSINOPHILS % (AUTO) 1 % (0-10); HEMATOCRIT 32 % (35-52); HEMOGLOBIN 10.7 G/DL (11.5-16.0); LYMPHOCYTES # (AUTO) 3.4 X 10^3 (1.0-4.0); LYMPHOCYTES % (AUTO) 24 % (12-44); MEAN CORPUSCULAR HEMOGLOBIN 30 PG (25-34); MEAN CORPUSCULAR HGB CONC 34 G/DL (32-36); MEAN CORPUSCULAR VOLUME 88 FL (80-99); MEAN PLATELET VOLUME 9.3 FL (7.4-10.4); MONOCYTES # (AUTO) 1.1 X 10^3 (0.0-1.0); MONOCYTES % (AUTO) 8 % (0-12); NEUTROPHILS # (AUTO) 9.4 X 10^3 (1.8-7.8); NEUTROPHILS % (AUTO) 67 % (42-75); PLATELET COUNT 310 10^3/uL (130-400); RED CELL DISTRIBUTION WIDTH 12.8 % (10.0-14.5)
[2019-05-16] MEDS ORDERED: fentaNYL INJECTION 100 MCG/2 ML AMP ONE (06:48)
--- NOTE | 2019-05-16 06:55 | History & Physical-OB ---
OB - Chief Complaint & HPI Date/Time Date of Admission: Date of Admission: May 16, 2019 at 05:19 Date seen by a Provider: May 16, 2019 Time Seen by a Provider: 06:50 Chief Complaint/History OB-Reason for Admission/Chief: Section Hx : 2 Hx Para: 1 Expected Date of Delivery: May 23, 2019 Gestational Age in Weeks: 39 Gestational Age in Days: 0 Indication for : desires repeat Admission Nurse Assessment Rev: Yes History of Labs O pos Antibody neg RI RPR NR HBsAg NR HIV NR GC neg GBS neg Allergies and Home Medications Allergies Coded Allergies: hydrocodone (Verified Adverse Reaction, Mild, 07/21/17) Itching Home Medications Vit W-Ca,Fe,FA(<1 mg) 1 Each Tablet, 1 EACH PO DAILY, (Reported) Patient Home Medication List Home Medication List Reviewed: Yes OB - History Hx of Present Care: Yes Ultrasounds: Normal mid trimester US Obstetrical Complications: None Medical Complications: None Other Concerns: inconsistent care Delivery History Hx Blood Disorders: No Patient Past Medical History n/a Social History/Family History 2nd Hand Smoke Exposure: No Immunizations Tetanus Booster (TDap): Less than 5yrs Date of Influenza Vaccine: Apr 08, 2019 OB - Admission Exam Physical Exam HEENT: NCAT Heart: Rhythm Normal Lungs: Clear Abdomen: Gravid Extremities: Normal Reflexes: Normal Cervical Dilatation: None Effacement: 50% Station: -2 Membranes: Intact Heart Rate: 130's Accelerations: Accelerations Present Decelerations: No Decelerations Short Term Variability: Present Skilled Nursing Variability: Average (6-25) Contractions on Admission: 6-10 Minutes Apart Labs Laboratory Tests Test 05/16/19 05:50 Range/Units White Blood Count 14.0 H 4.3-11.0 10^3/uL Red Blood Count 3.61 L 4.35-5.85 10^6/uL Hemoglobin 10.7 L 11.5-16.0 G/DL Hematocrit 32 L 35-52 % Mean Corpuscular Volume 88 80-99 FL Mean Corpuscular Hemoglobin 30 25-34 PG Mean Corpuscular Hemoglobin Concent 34 32-36 G/DL Red Cell Distribution Width 12.8 10.0-14.5 % Platelet Count 310 130-400 10^3/uL Mean Platelet Volume 9.3 7.4-10.4 FL Neutrophils (%) (Auto) 67 42-75 % Lymphocytes (%) (Auto) 24 12-44 % Monocytes (%) (Auto) 8 0-12 % Eosinophils (%) (Auto) 1 0-10 % Basophils (%) (Auto) 0 0-10 % Neutrophils # (Auto) 9.4 H 1.8-7.8 X 10^3 Lymphocytes # (Auto) 3.4 1.0-4.0 X 10^3 Monocytes # (Auto) 1.1 H 0.0-1.0 X 10^3 Eosinophils # (Auto) 0.1 0.0-0.3 10^3/uL Basophils # (Auto) 0.0 0.0-0.1 10^3/uL OB - Assessment/Plan/Diagnosis Assessment Assessment: section Admission Dx 23 yo @ 39 weeks Previous GBS neg Inconsistent care Admission Status: Inpatient Order (span 2 midnights) Reason for Inpatient Admission: Repeat at term Plan Plan: Section PARISH LOZA DO May 16, 2019 06:55 POS
[2019-05-16] MEDS ORDERED: TETANUS,DIPTH,PERTUSS P/F (BOOSTRIX) 0.5 ML VIAL IM SCH (07:00)
[2019-05-16] MEDS ORDERED: ONDANSETRON 4 MG/2 ML (SDV) Z0FRAN IVP PRN (07:00)
[2019-05-16] MEDS ORDERED: MEASLES,MUMPS,RUBELLA 1 EA INJ SC SCH (07:00)
--- NOTE | 2019-05-16 07:05 | NUR ---
PT VOIDED AND TO OR BY OR CREW.
[2019-05-16] MEDS ORDERED: CITRIC ACID/SOB CIT (BICITRA) 30 ML UDC PO ONE (07:17)
[2019-05-16] MEDS ORDERED: METOCLOPRAMIDE INJ 10 MG/2 ML (REGLAN) IV ONE (07:20)
[2019-05-16] MEDS ORDERED: ERYTHROMYCIN OPHTH OINT 1 GM (SINGLE USE) TUBE ONE (07:24)
[2019-05-16] MEDS ORDERED: PHYTONADIONE (VIT. K) NEONATAL 1 MG/0.5 ML AMP ONE (07:24)
[2019-05-16] MEDS ORDERED: OXYTOCIN/NORMAL SALINE 1,000 ML IV ONE (07:31)
[2019-05-16] MEDS ORDERED: DOCU100C37 PO (07:34)
[2019-05-16] MEDS ORDERED: OXYC1TAB87 PO (07:34)
[2019-05-16] MEDS ORDERED: IBUP-844 PO (07:34)
--- NOTE | 2019-05-16 07:35 | Discharge Inst-Women's Service ---
Discharge Inst-Women's Serv Depart Medication/Instructions New, Converted or Re-Newed RX: RX on Chart Final Diagnosis PPD 2 RLTCS Problems Reviewed?: Yes Consults/Follow Up Additional Follow Up: Yes Orders/Referrals Dr. Loza in 7-10 days and in 6 weeks Activity Activity: Activity as Tolerated Driving Instructions: No Driving for 1 Week NO SMOKING: NO SMOKING Nothing Inside Vagina: No Douching, No [place], No Tampons Diet Discharge Diet: No Restrictions Symptoms to Report to : Bleeding Excessive, Pain Increased, Fever Over 101 Degrees F, Vaginal Bleeding Increase, Questions/Concerns For Any Problems or Questions: Contact Your Physician Skin/Wound Care Infection Signs and Symptoms: Increased Redness, Foul Odor of Wound, Increased Drainage, Skin Itchy or Has a Rash, Increased Swelling, Temperature Above 101 F Operative Area Clean and Dry: Keep Incision Clean/Dry Stitches/Elysian/Dermabond: Dermabond, Care of Stitches PARISH LOZA DO May 16, 2019 07:35 POS
[2019-05-16] MEDS ORDERED: FAMOTIDINE 20MG/2ML IV (PEPCID) IV ONE (08:03)
[2019-05-16] MEDS ORDERED: BUPIVACAINE 0.5% 30 ML (SENSORCAINE) VIAL ONE (08:05)
[2019-05-16] MEDS ORDERED: KETOROLAC 30 MG/ML VIAL ONE (08:49)
[2019-05-16] MEDS: KETOROLAC 30 MG/ML VIAL IVP PRN ×3 (08:50→21:33)
[2019-05-16] MEDS ORDERED: OXYTOCIN/NORMAL SALINE 500 ML IV ONE (09:57)
[2019-05-16] MEDS ORDERED: OXYTOCIN/NORMAL SALINE 500 ML IV SCH (10:00)
[2019-05-16] MEDS: oxyCODONE/APAP 5/325MG (PERCOCET 5) TABLET PO PRN ×2 (10:42→18:56)
--- NOTE | 2019-05-16 13:15 | NUR ---
PT REPORT RECEIVED BY NABILA REYES RN AT THIS TIME.
[2019-05-16] MEDS ORDERED: CATHETER FLUSH 10 ML SYR IV SCH (14:00)
--- NOTE | 2019-05-16 14:00 | NUR ---
THIS RN ASSISTS PT UP TO BATHROOM AT THIS TIME. PT VOIDS, PERICARE, PAD CHANGE, GOWN CHANGE. RN HELPS PT BACK TO BED, TOLERATES WELL. CALL LIGHT WITHIN REACH.
--- NOTE | 2019-05-16 15:12 | OPERATIVE REPORT ---
DATE OF SERVICE: 05/16/2019 PREOPERATIVE DIAGNOSES: 1. A 23-year-old, G2, P1 at 39 weeks gestation. 2. Previous section. POSTOPERATIVE DIAGNOSES: 1. A 23-year-old, G2, P1 at 39 weeks gestation. 2. Previous section. PROCEDURE: Repeat low transverse section. SURGEON: Tong Loza DO [employer]: Simi Bull DNP, who was necessary for retraction of vital structures throughout the procedure. ANESTHESIA: Spinal. EBL: 550 mL. URINE OUTPUT: 30 mL clear at the end of the procedure. FLUIDS: 1500 mL of lactated Ringer's solution. FINDINGS: A live female weighing 6 pounds 4 ounces, Apgars of 8 and 9, grossly normal appearing uterus, bilateral fallopian tubes and ovaries. SPECIMEN SENT: None. INDICATIONS FOR PROCEDURE: This is a 23-year-old female, who is a patient, who had sought care in my office. Throughout her care, she had discussed the possibility of ; however, on most recent appointment, her cervix was not favorable and she was willing to proceed with repeat . Risks of the procedure was discussed with the patient in detail including risk of bleeding, infection, damage to surrounding structures including, but not limited to bowel, bladder, ureter, kidneys, possible need for reoperation, postoperative complications, recovery timeframe, possible need for blood transfusion, risk from anesthesia and even . After everything was discussed with the patient in detail, consent was obtained in the preoperative area and the patient was taken to the operating room. OPERATIVE REPORT IN DETAIL: Once in the operating room, spinal anesthesia was found to be adequate. She was placed in supine position with leftward tilt, prepped and draped in normal sterile fashion. A timeout was performed. Anesthesia was tested. I then excised the previously existing keloid from the skin from her previous Pfannenstiel skin incision and then I took that incision down to the underlying fascia using Bovie cautery. Fascial incision was extended laterally using Bovie cautery. Superior aspect of the fascial incision was then grasped with Pee clamps, tented up and dissected off the underlying rectus muscles. The inferior aspect of the fascial incision was then grasped with Pee clamps, tented up and dissected off the underlying rectus muscles. The rectus muscles were dissected down the midline using Garcia scissors, which exposed the peritoneum, which I entered bluntly and extended using blunt traction. I then placed an Maverick ring retractor within the peritoneal incision, which offers excellent lateral sidewall retraction. I then proceeded with making a low transverse incision to the vesicouterine peritoneum and bluntly dissected off the lower uterine segment, creating a bladder flap. I proceeded with my myotomy until membranes were visualized, at which point, I extended the uterine incision laterally and superiorly using bandage scissors. Amniotomy was performed using Allis clamp. Clear fluid was noted. The was found in vertex presentation. With gentle fundal pressure, the infant's head was elevated up to the incision where the nares and oropharynx were then bulb suctioned. Anterior and posterior shoulders were delivered. Infant was then brought out to the operative field where the cord was doubly clamped and cut and was handed off to waiting nurses in attendance. Cord blood was collected, 3-vessel cord with intact placenta was delivered spontaneously thereafter. IV Pitocin was initiated to facilitate uterine contraction. Uterine fundus became firm with bimanual massage. The uterus was then exteriorized and cleared of all endometrial clots and debris. I then closed the uterine incision using 0 Vicryl suture in running locked fashion. Second layer of imbricating 0 Monocryl was placed. Excellent hemostasis was noted after doing this. I then placed the uterus back within the pelvis and copiously irrigated the pelvis using normal saline. Once again, there was no active bleeding noted from any of my dissection planes. I placed Interceed antiadhesive over my low transverse incision. I then proceeded with closing the peritoneum using 3-0 Vicryl suture in running fashion after I removed the Maverick ring retractor. The rectus muscle was reapproximated using 3-0 Vicryl suture in interrupted fashion. The fascia was reapproximated using 0 Vicryl suture in running fashion. Subcutaneous tissue was reapproximated using 3-0 plain in interrupted subcutaneous stitch and skin was reapproximated using 4-0 Monocryl running subcuticular. Dermabond was applied to incision and sterile dressing with adhesive white tape. The patient tolerated the procedure well and sent to recovery area in stable condition. Lap and sponge counts were reported as correct at the end of procedure. Instrument count was correct as well. Two grams of Ancef was given preoperatively for infection prophylaxis. Job ID: [id number] DocumentID: [id number] Dictated Date: 05/16/2019 08:44:33 Dust Sampler Date: 05/16/2019 15:11:23 Dictated By: TONG LOZA DO
[2019-05-16] MEDS: METOCLOPRAMIDE 10 MG (REGLAN) TAB PO SCH (21:33)
[2019-05-16] MEDS: DOCUSATE SODIUM 100 MG (COLACE) CAP PO SCH (21:33)
[2019-05-17 00:30] VITALS: BP 111/68
[2019-05-17 04:00] VITALS: BP 121/81
[2019-05-17] MEDS: KETOROLAC 30 MG/ML VIAL IVP PRN (04:00)
--- NOTE | 2019-05-17 04:57 | NUR ---
To patient room to administer ordered Reglan. Patient resting soundly with eyes closed. Will return to give once awake.
[2019-05-17] MEDS: METOCLOPRAMIDE 10 MG (REGLAN) TAB PO SCH ×3 (06:05→17:52)
[2019-05-17 06:09] LABS: BASOPHILS % (AUTO) 0 % (0-10); EOSINOPHILS # (AUTO) 0.1 10^3/uL (0.0-0.3); EOSINOPHILS % (AUTO) 1 % (0-10); HEMATOCRIT 32 % (35-52); HEMOGLOBIN 10.8 G/DL (11.5-16.0); LYMPHOCYTES # (AUTO) 2.5 X 10^3 (1.0-4.0); LYMPHOCYTES % (AUTO) 17 % (12-44); MEAN CORPUSCULAR HEMOGLOBIN 30 PG (25-34); MEAN CORPUSCULAR HGB CONC 34 G/DL (32-36); MEAN CORPUSCULAR VOLUME 89 FL (80-99); MEAN PLATELET VOLUME 8.9 FL (7.4-10.4); MONOCYTES % (AUTO) 7 % (0-12); NEUTROPHILS # (AUTO) 11.1 X 10^3 (1.8-7.8); NEUTROPHILS % (AUTO) 75 % (42-75); PLATELET COUNT 275 10^3/uL (130-400); RED CELL DISTRIBUTION WIDTH 13.3 % (10.0-14.5); WHITE BLOOD COUNT 14.8 10^3/uL (4.3-11.0)
[2019-05-17 08:00] VITALS: BP 125/74
--- NOTE | 2019-05-17 08:00 | NUR ---
A.M. ASSESSMENT COMPLETED. VSS. SALINE LOCK D/C'ED WITH TIP INTACT. PT WANTING TO GO OUTSIDE. S.O. ASLEEP AT BEDSIDE. INFANT ASLEEP IN CRIB.
--- NOTE | 2019-05-17 08:16 | Postpartum Progress Note ---
Note Note Day # 1 Subjective: Patient is without complaints. Ambulating, voiding. Tolerating a regular diet without nausea or vomiting. Normal lochia. Pain is well controlled with oral pain medications. Objective: Physical Exam: General - Alert and oriented, no apparent distress Abdomen - Soft, appropriately tender to palpation, non-distended, fundus firm at umbilicus Extremities - no edema, negative Lynn's bilaterally Incision- c/d/i Assessment: POD 1 RLTCS Acute blood loss anemia Plan: Routine care. Encourage breast feeding. Encourage ambulation. Ferrous sulfate supplementation. Plan for discharge tomorrow Vitals - Labs Vital Signs - I&O Vital Signs Date Time Temp Pulse Resp B/P (MAP) Pulse Ox O2 Delivery O2 Flow Rate FiO2 05/17/19 04:00 36.4 69 18 121/81 (94) 97 Room Air 05/17/19 00:30 36.6 74 18 111/68 (82) 98 Room Air 05/16/19 20:00 36.6 65 18 113/73 (86) 98 Room Air 05/16/19 16:32 37.0 89 16 93/58 (70) 97 Room Air 05/16/19 12:25 36.7 69 18 115/70 (85) 98 Room Air 05/16/19 09:40 Room Air 05/16/19 09:35 36.7 16 113/70 (84) 99 Room Air 05/16/19 09:25 36.7 20 114/68 (83) 98 Room Air 05/16/19 09:25 Room Air 05/16/19 09:10 36.7 16 97/66 (76) 98 Room Air 05/16/19 09:10 Room Air 05/16/19 08:55 36.6 18 125/64 (84) 100 Room Air 05/16/19 08:55 Room Air 05/16/19 08:42 Room Air 05/16/19 08:42 36.3 20 109/84 (92) 100 Room Air I & O 05/17/19 07:00 Intake Total 1110 ml Output Total 530 ml Balance 580 ml Labs Laboratory Tests 05/17/19 05:59: White Blood Count 14.8H, Red Blood Count 3.61L, Hemoglobin 10.8L, Hematocrit 32L , Mean Corpuscular Volume 89, Mean Corpuscular Hemoglobin 30, Mean Corpuscular Hemoglobin Concent 34, Red Cell Distribution Width 13.3, Platelet Count 275, Mean Platelet Volume 8.9, Neutrophils (%) (Auto) 75, Lymphocytes (%) (Auto) 17, Monocytes (%) (Auto) 7, Eosinophils (%) (Auto) 1, Basophils (%) (Auto) 0, Neutrophils # (Auto) 11.1H, Lymphocytes # (Auto) 2.5, Monocytes # (Auto) 1.0, Eosinophils # (Auto) 0.1, Basophils # (Auto) 0.0 PARISH LOZA DO May 17, 2019 08:16 POS
[2019-05-17] MEDS ORDERED: IBUPROFEN 600 MG (MOTRIN) TAB PO ONE (09:12)
--- NOTE | 2019-05-17 09:21 | Anesthesia-Regional Post-Op ---
Regional Patient Condition Mental Status: Alert, Oriented x3 Circulation: Same as Pre-Op Headache: Absent Sensation: Full Recovery Motor Block: Absent Post Op Complications Complications None Follow Up Care/Instructions Patient Instructions None needed. Anesthesia/Patient Condition Patient is doing well, no complaints, stable vital signs, no apparent adverse anesthesia problems. No complications reported per nursing. D/C home per [facility] [place] Criteria: JUAN Sales CRNA May 17, 2019 09:21 POS
--- NOTE | 2019-05-17 10:00 | NUR ---
PT WENT DOWNSTAIRS AGAIN. TO RN'S CARE.
[2019-05-17] MEDS: oxyCODONE/APAP 5/325MG (PERCOCET 5) TABLET PO PRN ×2 (10:08→20:02)
--- NOTE | 2019-05-17 10:08 | NUR ---
RETURNED TO ROOM. REQUESTS PAIN MEDS. PERCOCET 2 TABS P.O. FOR C/O RIGHT SHOULDER PAIN.
[2019-05-17] MEDS: DOCUSATE SODIUM 100 MG (COLACE) CAP PO SCH ×2 (10:09→20:01)
--- NOTE | 2019-05-17 12:00 | NUR ---
AMBULATING WELL. WARM BLANKETS TO RIGHT SHOULDER PRN FOR SHOULDER PAIN. VOIDING WITHOUT PROBLEMS.
[2019-05-17 14:00] VITALS: BP 127/68
--- NOTE | 2019-05-17 14:00 | NUR ---
PT SLEEPING WHEN ENTERED ROOM. DENIES PAIN AT THIS TIME.
[2019-05-17] MEDS: IBUPROFEN 600 MG (MOTRIN) TAB PO SCH ×3 (15:52→22:06)
--- NOTE | 2019-05-17 16:00 | NUR ---
ROUTINE MOTRIN GIVEN. DENIES. FAMILY AT BEDSIDE. WARM BLANKET TO RIGHT SHOULDER. CARING FOR IN ROOM.
--- NOTE | 2019-05-17 18:00 | NUR ---
DENIES ANY WANTS OR NEEDS. FAMILY AT BEDSIDE.
[2019-05-17 22:12] VITALS: BP 124/70
[2019-05-18] MEDS: IBUPROFEN 600 MG (MOTRIN) TAB PO SCH ×3 (03:46→09:25)
[2019-05-18] MEDS: METOCLOPRAMIDE 10 MG (REGLAN) TAB PO SCH ×4 (03:47→09:25)
[2019-05-18] MEDS: oxyCODONE/APAP 5/325MG (PERCOCET 5) TABLET PO PRN (03:47)
[2019-05-18 04:01] VITALS: BP 132/73
--- NOTE | 2019-05-18 04:01 | NUR ---
Pt sitting up in chair infant. medications for pain given at this time.
--- NOTE | 2019-05-18 08:37 | Postpartum Progress Note ---
Note Note Day # 2 Subjective: Patient is without complaints. Ambulating, voiding. Tolerating a regular diet without nausea or vomiting. Normal lochia. Pain is well controlled with oral pain medications. Objective: Physical Exam: General - Alert and oriented, no apparent distress Abdomen - Soft, appropriately tender to palpation, non-distended, fundus firm at umbilicus Extremities - no edema, negative Lynn's bilaterally Incision - c/d/i Assessment: POD 2 RLTCS Plan: Routine care. Encourage breast feeding. Encourage ambulation. Ferrous sulfate supplementation. Plan for discharge today Vitals - Labs Vital Signs - I&O Vital Signs Date Time Temp Pulse Resp B/P (MAP) Pulse Ox O2 Delivery O2 Flow Rate FiO2 05/18/19 04:01 36.6 70 18 132/73 (92) 97 Room Air 05/17/19 22:12 37.0 88 18 124/70 (88) 97 Room Air 05/17/19 14:00 36.7 86 18 127/68 (87) 97 Room Air I & O 05/18/19 07:00 Intake Total 1780 ml Output Total 1475 ml Balance 305 ml PARISH LOZA DO May 18, 2019 08:37 POS
[2019-05-18 09:25] VITALS: BP 128/68
[2019-05-18] MEDS: DOCUSATE SODIUM 100 MG (COLACE) CAP PO SCH (09:25)
--- NOTE | 2019-05-18 09:25 | NUR ---
AM shift assessment completed and vital signs obtained, see interventions. Plan of care reviewed with patient. Patient verbalizes understanding and questions answered. Scheduled Colace, Reglan, and Motrin PO given. TDAP administered, see EMAR. VIS sheet provided to patient.
--- NOTE | 2019-05-18 10:05 | NUR ---
Discharge instructions and medications reviewed with patient both written and verbally. Patient verbalizes understanding and questions answered.
--- NOTE | 2019-05-18 10:20 | NUR ---
Patient discharged at this time and ambulated from the unit down to awaiting private vehicle accompanied by Xavier Hooker RN. No signs or symptoms of distress noted.
[2019-05-21] MEDS ORDERED: IBUPROFEN 600 MG (MOTRIN) TAB PO SCH (06:00)
== END 2019-05-18 10:20 | disposition home or self-care (01) | DRG 788 ==
LOC: LDRP 05:19
PROVIDERS: ADMIT Obstetrics & Gynecology; ATTEND Obstetrics & Gynecology
PROC: 10D00Z1 Extraction of Products of Conception, Low, Open Approach (ICD-10-PCS; principal; 2019-05-16 07:14)
DX: O34.211 Maternal care for low transverse scar from previous cesarean delivery (principal); O99.344 Other mental disorders complicating childbirth; F41.9 Anxiety disorder, unspecified; F32.9 Major depressive disorder, single episode, unspecified; O99.62 Diseases of the digestive system complicating childbirth; K21.9 Gastro-esophageal reflux disease without esophagitis; Z3A.39 39 weeks gestation of pregnancy; Z37.0 Single live birth
CPT/HCPCS: 36415; 85025; 86850; 86900; 86901; 90715; 94664

== ENCOUNTER 2020-06-08 23:19 | Emergency (ER) | payer MEDICAID ==
[~2020-06-08] VITALS: Ht 165 cm; Wt 87.0 kg
[~2020-06-08 23:19] MED LIST changes: -CITRIC ACID/SOB CIT (BICITRA) 30 ML UDC ONE; +DOCU100C37 PO; -FAMOTIDINE 20MG/2ML IV (PEPCID) ONE; +IBUP-844 PO; -METOCLOPRAMIDE INJ 10 MG/2 ML (REGLAN) ONE; +OXYC1TAB87 PO; -WATER (STERILE) FOR INJECTION 10 ML ONE; -ceFAZolin INJECTION 1,000 MG ONE
[2020-06-08 23:24] VITALS: BP 136/87
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
[2020-06-09] MEDS ORDERED: ONDANSETRON 4 MG (ZOFRAN) ORAL DISSOLVE TAB SL ONE (00:30)
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
== END 2020-06-09 00:25 | disposition home or self-care (01) ==
LOC: EDUNIT# 23:19 → ER 23:23
DX: S06.0X0A Concussion without loss of consciousness, initial encounter (principal); S00.83XA Contusion of other part of head, initial encounter; M54.2 Cervicalgia; R11.0 Nausea; G43.909 Migraine, unspecified, not intractable, without status migrainosus; R40.2360 Coma scale, best motor response, obeys commands, unspecified time; R40.2140 Coma scale, eyes open, spontaneous, unspecified time; R40.2250 Coma scale, best verbal response, oriented, unspecified time; Z87.891 Personal history of nicotine dependence; Z82.49 Family history of ischemic heart disease and other diseases of the circulatory system; Z88.5 Allergy status to narcotic agent; W22.8XXA Striking against or struck by other objects, initial encounter; Y92.009 Unspecified place in unspecified non-institutional (private) residence as the place of occurrence of the external cause
CPT/HCPCS: 70450; 72125

== ENCOUNTER 2020-11-07 12:30 | Emergency (ER) | payer MEDICAID ==
[~2020-11-07] VITALS: Ht 165 cm; Wt 91.0 kg
--- NOTE | 2020-11-07 14:37 | ED Lower Extremity ---
General Chief Complaint: Lower Extremity Stated Complaint: L KNEE PAIN Nursing Triage Note: patient states x1 week ago woke up with left knee pain, states unable to put full weight on leg. patient walked with mild distress to room. Nursing Sepsis Screen: No Definite Risk Source: patient Exam Limitations: no limitations History of Present Illness Date Seen by Provider: November 07, 2020 Time Seen by Provider: 14:35 Initial Comments To ER with left knee pain for 1 week hurts with weightbearing. No known injury Onset: just prior to arrival Severity: moderate Pain/Injury Location: left knee Method of Injury: unknown Modifying Factors: Worse With Movement Allergies and Home Medications Allergies Coded Allergies: hydrocodone (Verified Adverse Reaction, Mild, 07/21/17) Itching Home Medications Docusate Sodium 100 Mg Capsule, 100 MG PO BID PRN for CONSTIPATION-1ST LINE Prescribed by: PARISH LOZA on 05/16/19 0734 Ibuprofen 600 Mg Tablet, 600 MG PO Q6HR Prescribed by: PARISH LOZA on 05/16/19 0734 Oxycodone HCl/Acetaminophen 1 Each Tablet, 1-2 TAB PO Q6HR PRN for PAIN-MODERATE Prescribed by: PARISH LOZA on 05/16/19 0734 Vit W-Ca,Fe,FA(<1 mg) 1 Each Tablet, 1 EACH PO DAILY, (Reported) Patient Home Medication List Home Medication List Reviewed: Yes Review of Systems Constitutional: see HPI EENTM: see HPI Respiratory: no symptoms reported Cardiovascular: no symptoms reported Genitourinary: no symptoms reported Musculoskeletal: see HPI Skin: no symptoms reported Psychiatric/Neurological: No Symptoms Reported Past Ndyvbun-Xgvyid-Oeyeni Hx Patient Social History Alcohol Use: Denies Use Type Used: Cigarettes Former Smoker, Quit: May 06, 2019 2nd Hand Smoke Exposure: No Recent Infectious Disease Expo: No Recent Hopitalizations: No Immunizations Up To Date Tetanus Booster (TDap): Unknown PED Vaccines UTD: Yes Date of Influenza Vaccine: Apr 08, 2020 Seasonal Allergies Seasonal Allergies: Yes Past Medical History Surgeries: Yes (r wrist reconstruction, bmt x4, ) Section, Gallbladder, Tonsillectomy Respiratory: Yes (childhood asthma) Asthma Currently Using CPAP: No Currently Using BIPAP: No Cardiac: No Neurological: No Headaches /Migraines 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 Sexually Transmitted Disease: No HIV/AIDS: No Genitourinary: Yes UTI-Chronic Gastrointestinal: Yes Gall Bladder Disease Musculoskeletal: No Endocrine: No HEENT: Yes Chronic Ear Infection Cancer: No Psychosocial: Yes (post- depression) Anxiety Integumentary: No Blood Disorders: No Family Medical History Alcoholism Completed stroke 19 MOTHER Diabetes mellitus 19 FATHER Drug abuse 19 FATHER 19 MOTHER Hypertension 19 FATHER No Pertinent Family Hx Physical Exam Vital Signs Vital Signs - First Documented 11/07/20 14:14 Temp 36.9 Pulse 81 Resp 20 B/P (MAP) 124/88 (100) Pulse Ox 99 O2 Delivery Room Air Capillary Refill : Less Than 3 Seconds Height, Weight, BMI Height: 5'5.00" Weight: 177lbs. 2.0oz. 80.010103zd; 33.00 BMI Method:Stated General Appearance: WD/WN, no apparent distress Respiratory: no respiratory distress, no accessory muscle use Hips: bilateral hip non-tender, bilateral hip normal inspection, bilateral hip normal range of motion Legs: bilateral leg non-tender, bilateral leg normal inspection, bilateral leg normal range of motion Knees: left knee pain, left knee soft tissue tenderness Ankles: bilateral ankle non-tender, bilateral ankle normal inspection, bilateral ankle normal range of motion Feet: bilateral foot non-tender, bilateral foot normal inspection Neurologic/Psychiatric: alert, normal mood/affect, oriented x 3 Skin: normal color, warm/dry Progress/Results/Core Measures Results/Orders My Orders Orders - NI DIOP APRN Knee, Left, 3 Views (11/07/20 14:21) Vital Signs/I&O 11/07/20 14:14 Temp 36.9 Pulse 81 Resp 20 B/P (MAP) 124/88 (100) Pulse Ox 99 O2 Delivery Room Air Blood Pressure Mean: 100 Departure Impression Primary Impression: Internal derangement of left knee Disposition: HOME, SELF-CARE Condition: Stable Departure-Patient Inst. Decision time for Depature: 14:36 Referrals: [facility] (PCP/Family) Primary Care Physician Patient Instructions: Internal Derangement of the Knee Add. Discharge Instructions: . Follow-up with [facility] tomorrow to make an appointment to be seen. If the pain persist they will likely need to order an MRI of the knee. All discharge instructions reviewed with patient and/or family. Voiced understanding. Work/School Note: Work Release Form Date Seen in the Emergency Department: November 07, 2020 Return to Work: November 07, 2020 Restrictions: Need Release from NI Anderson APRN November 07, 2020 14:37
--- NOTE | 2020-11-07 14:42 | Diagnostic Imaging Report ---
Indication: Left knee pain for one week. Comparison: 09/28/2017. Discussion: Three views of the left knee were obtained. No significant degenerative disease. No fracture or dislocation. No effusion. Alignment is anatomic. Soft tissues are unremarkable. Impression: Negative left knee. Dictated by: Dictated on workstation # [id number]
[2020-11-07 15:05] VITALS: BP 124/88
== END 2020-11-07 15:07 | disposition home or self-care (01) ==
LOC: EDUNIT# 12:30 → ER 12:31
DX: M23.92 Unspecified internal derangement of left knee (principal); J45.909 Unspecified asthma, uncomplicated; Z88.5 Allergy status to narcotic agent; Z87.891 Personal history of nicotine dependence
CPT/HCPCS: 73562

== ENCOUNTER 2021-06-26 20:37 | Emergency (ER) | payer MEDICAID ==
[~2021-06-26] VITALS: Ht 165 cm; Wt 102.1 kg
[2021-06-26 21:00] VITALS: BP 122/87
--- NOTE | 2021-06-26 21:42 | ED Cough/URI ---
General Chief Complaint: Cough/Cold/Flu Symptoms Stated Complaint: COUGH/FEVER Nursing Triage Note: PT AMB TO TRIAGE W REPORTS OF CHILLS, SORE THROAT, AND FATIGUE. PT A&OX4. (ARPITA GALVAN) History of Present Illness Date Seen by Provider: Jun 26, 2021 Time Seen by Provider: 21:00 Initial Comments 26-year-old female presents for chills and fatigue, making it difficult to stay awake. Symptoms began this morning, has not taken any medications. She has received the COVID vaccine in April of this year. She has not received a flu vaccine. She is concerned because a coworker is sick but has not been tested for flu or covid. Timing/Duration: yesterday Severity/Quality: mild Prior Episodes/Possible Cause: no prior episodes Associated Symptoms: fever/chills, muscle aches, nasal congestion (ARPITA GALVAN) Allergies and Home Medications Allergies Coded Allergies: hydrocodone (Verified Adverse Reaction, Mild, 07/21/17) Itching Patient Home Medication List Home Medication List Reviewed: Yes (ARPITA GALVAN) Docusate Sodium (Docusate Sodium) 100 Mg Capsule, 100 MG PO BID PRN for CONSTIPATION-1ST LINE Prescribed by: PARISH LOZA on 05/16/19733 Ibuprofen (Ibu) 600 Mg Tablet, 600 MG PO Q6HR Prescribed by: PARISH LOZA on 05/16/19733 Oxycodone HCl/Acetaminophen (Percocet 5-325 mg Tablet) 1 Each Tablet, 1-2 TAB PO Q6HR PRN for PAIN-MODERATE Prescribed by: PARISH LOZA on 05/16/19 0734 Vit W-Ca,Fe,FA(<1 mg) ( Vitamins) 1 Each Tablet, 1 EACH PO DAILY, (Reported) Entered as Reported by: CARLA LOCO on 02/07/19 1535 Review of Systems Review of Systems Constitutional: see HPI, fever, malaise, weakness EENTM: see HPI, no symptoms reported Respiratory: see HPI, cough Cardiovascular: no symptoms reported, see HPI Gastrointestinal: no symptoms reported, see HPI Genitourinary: no symptoms reported, see HPI : No LMP: Jun 05, 2021 Musculoskeletal: no symptoms reported, see HPI (ARPITA GALVAN) All Other Systems Reviewed Negative Unless Noted: Yes (ARPITA GALVAN) Past Satvvhr-Zorsrx-Wqtlqm Hx Patient Social History Tobacco Use?: No Use of E-Cig and/or Vaping dev: Yes E-Cig or Vaping type used: Nicotine Use of E-Cig and/or Vaping Angel: Current Everyday User Substance use?: No Alcohol Use?: Yes Alcohol Frequency: Rarely (ARPITA GALVAN) Immunizations Up To Date Tetanus Booster (TDap): Unknown PED Vaccines UTD: Yes Influenza Vaccine Up-to-Date: No; Not Current First/Initial COVID19 Vaccinat: 2020 Second COVID19 Vaccination Mike: APRIL 2021 COVID19 Vaccine Pediatric Physician: MODERNA (ARPITA GALVAN) Seasonal Allergies Seasonal Allergies: Yes (ARPITA GALVAN) Past Medical History Surgeries: Yes (r wrist reconstruction, bmt x4, ) Section, Gallbladder, Tonsillectomy Respiratory: Yes (childhood asthma) Asthma Currently Using CPAP: No Currently Using BIPAP: No Cardiac: No Neurological: No Headaches /Migraines Last Menstrual Period: Jun 05, 2021 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 Disorders: 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 Sexually Transmitted Disease: No HIV/AIDS: No Genitourinary: Yes UTI-Chronic Gastrointestinal: Yes Gall Bladder Disease Musculoskeletal: No Endocrine: No HEENT: Yes Chronic Ear Infection Cancer: No Psychosocial: Yes (post- depression) Anxiety Integumentary: No Blood Disorders: No (ARPITA GALVAN) Family Medical History Reviewed Nursing Family Hx (ARPITA GALVAN) Alcoholism Completed stroke 19 MOTHER Diabetes mellitus 19 FATHER Drug abuse 19 FATHER 19 MOTHER Hypertension 19 FATHER No Pertinent Family Hx (APRITA GALVAN) Physical Exam Vital Signs - First Documented 06/26/21 21:00 Temp 36.3 Pulse 83 Resp 20 B/P (MAP) 122/87 (99) Pulse Ox 100 O2 Delivery Room Air (RAHUL,ANDREY K DO) Capillary Refill : Less Than 3 Seconds (ARPITA GALVAN) Height: 5'5.00" Weight: 177lbs. 2.0oz. 80.072552wx; 37.00 BMI Method:Stated General Appearance: WD/WN, no apparent distress HEENT: PERRL/EOMI, normal ENT inspection, TMs normal; No pharyngeal erythema, No tonsillar exudate; other (PND noted) Neck: non-tender, full range of motion, supple, normal inspection Respiratory: chest non-tender, lungs clear, normal breath sounds Cardiovascular: normal peripheral pulses, regular rate, rhythm Gastrointestinal: normal bowel sounds, non tender, soft Extremities: normal range of motion, non-tender, normal inspection, normal capillary refill Neurologic/Psychiatric: no motor/sensory deficits, alert, normal mood/affect, oriented x 3 Skin: normal color, warm/dry (ARPITA GALVAN) Progress/Results/Core Measures Suspected Sepsis SIRS Temperature: Pulse: 83 Respiratory Rate: 20 Blood Pressure 122 /87 Mean: 99 (ARPITA GALVAN) Results/Orders Lab Results Laboratory Tests Test 06/26/21 21:06 Range/Units Influenza Type A (RT-PCR) Not Detected Not Detecte Influenza Type B (RT-PCR) Not Detected Not Detecte SARS-CoV-2 RNA (RT-PCR) Not Detected Not Detecte (ANDREY KAY DO) Vital Signs/I&O 06/26/21 21:00 Temp 36.3 Pulse 83 Resp 20 B/P (MAP) 122/87 (99) Pulse Ox 100 O2 Delivery Room Air (ANDREY KAY DO) Vital Signs/I&O Capillary Refill : Less Than 3 Seconds (ARPITA GALVAN) Blood Pressure Mean: 99 Departure Impression Primary Impression: Fatigue Qualified Codes: R53.83 - Other fatigue Additional Impression: Viral URI Disposition: 01 HOME, SELF-CARE Condition: Improved Departure-Patient Inst. Decision time for Depature: 21:45 (ARPITA GALVAN) Referrals: [facility] (PCP/Family) Primary Care Physician Patient Instructions: Viral Upper Respiratory Infection, Adult (DC) Add. Discharge Instructions: Increase water intake, 16 ounces every 2 hours while awake. Take a multivitamin daily. Activity as tolerated. You may continue to work as long as you are fever free. Follow-up with your primary care provider if symptoms are not improving or worsen. All discharge instructions reviewed with patient and/or family. Voiced understanding. Work/School Note: Work Release Form Date Seen in the Emergency Department: Jun 26, 2021 Return to Work: Jun 27, 2021 Restrictions: No Restrictions Other Restrictions Listed Below: May work, unless patient has fever. ATTENDING PHYSICIAN NOTE: I WAS PHYSICALLY PRESENT ER PHYSICIAN WHEN THIS PATIENT WAS IN ER, BUT I WAS NOT INVOLVED IN ANY DECISION MAKING OR ANY CARE OF THIS PATIENT. (ANDREY KAY DO) ARPITA GALVAN Jun 26, 2021 21:42 ANDREY KAY DO Jun 27, 2021 01:09
== END 2021-06-26 21:54 | disposition home or self-care (01) ==
LOC: EDUNIT# 20:37 → ER 20:38
DX: R53.83 Other fatigue (principal); J06.9 Acute upper respiratory infection, unspecified; J45.909 Unspecified asthma, uncomplicated; F17.290 Nicotine dependence, other tobacco product, uncomplicated; Z20.822 Contact with and (suspected) exposure to COVID-19
CPT/HCPCS: 87636; 99283

== ENCOUNTER 2021-07-22 13:23 | Emergency (ER) | payer MEDICAID ==
[~2021-07-22] VITALS: Ht 165.1 cm; Wt 95.3 kg
[2021-07-22] MEDS ORDERED: LACTATED RINGERS 1,000 ML IV ONE ×2 (13:51→14:00)
[2021-07-22] MEDS ORDERED: ONDANSETRON 4 MG/2 ML (SDV) Z0FRAN ONE (13:51)
[2021-07-22] MEDS ORDERED: KETOROLAC 30 MG/ML VIAL ONE (13:51)
[2021-07-22] MEDS ORDERED: ONDANSETRON 4 MG/2 ML (SDV) Z0FRAN IVP ONE (14:00)
[2021-07-22] MEDS ORDERED: KETOROLAC 30 MG/ML VIAL IVP ONE (14:00)
[2021-07-22 14:01] LABS: BASOPHILS % (AUTO) 0 % (0-10); EOSINOPHILS % (AUTO) 0 % (0-10); HEMATOCRIT 42 % (35-52); HEMOGLOBIN 13.7 g/dL (11.5-16.0); LYMPHOCYTES # (AUTO) 5.4 10^3/uL (1.0-4.0); LYMPHOCYTES % (AUTO) 44 % (12-44); MEAN CORPUSCULAR HEMOGLOBIN 28 pg (25-34); MEAN CORPUSCULAR HGB CONC 33 g/dL (32-36); MEAN CORPUSCULAR VOLUME 86 fL (80-99); MEAN PLATELET VOLUME 8.6 fL (9.0-12.2); MONOCYTES # (AUTO) 0.7 10^3/uL (0.0-1.0); MONOCYTES % (AUTO) 6 % (0-12); NEUTROPHILS # (AUTO) 5.9 10^3/uL (1.8-7.8); NEUTROPHILS % (AUTO) 49 % (42-75); PLATELET COUNT 360 10^3/uL (130-400); WHITE BLOOD COUNT 12.2 10^3/uL (4.3-11.0)
[2021-07-22 14:04] LABS: ALBUMIN 4.2 GM/DL (3.2-4.5); CHLORIDE 110 MMOL/L (98-107); POTASSIUM 3.5 MMOL/L (3.6-5.0); SODIUM 142 MMOL/L (135-145)
[2021-07-22 14:05] LABS: CALCIUM 9.1 MG/DL (8.5-10.1)
[2021-07-22 14:07] LABS: GLUCOSE 86 MG/DL (70-105); TOTAL PROTEIN 7.1 GM/DL (6.4-8.2)
[2021-07-22 14:08] LABS: BILIRUBIN,TOTAL 0.4 MG/DL (0.1-1.0); CARBON DIOXIDE 20 MMOL/L (21-32)
[2021-07-22 14:10] LABS: ALKALINE PHOSPHATASE 51 U/L (40-136); CREATININE SERUM 0.76 MG/DL (0.60-1.30); GFR ESTIMATED 111
[2021-07-22 14:11] LABS: BUN/CREATININE RATIO 14
[2021-07-22 14:13] LABS: ALANINE AMINOTRANSFERASE 17 U/L (0-55)
--- NOTE | 2021-07-22 14:50 | Diagnostic Imaging Report ---
Indication: Chest pain Portable chest 2:44 PM Heart size and pulmonary vasculature are normal. Lungs are clear. There are no effusions or pneumothoraces. IMPRESSION: Negative chest Dictated by: Dictated on workstation # [id number]
--- NOTE | 2021-07-22 15:16 | ED General ---
General Chief Complaint: COVID19 Suspect/Confirmed Stated Complaint: COVID +,CP,SOB Nursing Triage Note: PT AMB TO RM 7 WITH COMPLAINT OF COVID +. STATES TESTED POSITIVE TWO DAYS AGO. IS COMPLAINING OF SOA AND CHEST DISCOMFORT. Source of Information: Patient Exam Limitations: No Limitations History of Present Illness Date Seen by Provider: Jul 22, 2021 Time Seen by Provider: 13:52 Initial Comments This 26-year-old young lady presents to the emergency room with complaints of chest pain associated with COVID-19. She tested positive for COVID-19 about 2 days ago. She is scheduled for monoclonal antibody therapy on Sunday. Chest pain is described as a tightness that seems worse with deep breathing. She has no vomiting. She did have some diarrhea. She feels dry. Allergies and Home Medications Allergies Coded Allergies: hydrocodone (Verified Adverse Reaction, Mild, 07/21/17) Itching Patient Home Medication List Home Medication List Reviewed: Yes Docusate Sodium (Docusate Sodium) 100 Mg Capsule, 100 MG PO BID PRN for CONSTIPATION-1ST LINE Prescribed by: PARISH LOZA on 05/16/19 0734 Ibuprofen (Ibu) 600 Mg Tablet, 600 MG PO Q6HR Prescribed by: PARISH LOZA on 05/16/19 0734 Ondansetron (Ondansetron Odt) 4 Mg Tab.rapdis, 4 MG SL Q4H PRN for NAUSEA/VOMITING Prescribed by: NI DIOP on 07/22/21 1548 Last Action: New Order Oxycodone HCl/Acetaminophen (Percocet 5-325 mg Tablet) 1 Each Tablet, 1-2 TAB PO Q6HR PRN for PAIN-MODERATE Prescribed by: PARISH LOZA on 05/16/19 0734 Vit W-Ca,Fe,FA(<1 mg) ( Vitamins) 1 Each Tablet, 1 EACH PO DAILY, (Reported) Entered as Reported by: CARLA LOCO on 02/07/19 1535 Review of Systems Review of Systems Constitutional: chills EENTM: see HPI Respiratory: see HPI Cardiovascular: see HPI Gastrointestinal: see HPI Genitourinary: no symptoms reported Musculoskeletal: no symptoms reported Skin: no symptoms reported Psychiatric/Neurological: No Symptoms Reported Hematologic/Lymphatic: No Symptoms Reported Immunological/Allergic: no symptoms reported Past Rivrpbg-Yitjgc-Szlzsg Hx Patient Social History Tobacco Use?: No Use of E-Cig and/or Vaping dev: Yes E-Cig or Vaping type used: Nicotine Substance use?: No Alcohol Use?: Yes Alcohol Frequency: Once in a while Pt feels they are or have been: No Immunizations Up To Date Tetanus Booster (TDap): Unknown PED Vaccines UTD: Yes Influenza Vaccine Up-to-Date: Yes; Up-to-Date First/Initial COVID19 Vaccinat: 2020 Second COVID19 Vaccination Mike: APRIL 2021 Third COVID19 Vaccination Date: 2020 Seasonal Allergies Seasonal Allergies: Yes Past Medical History Surgeries: Yes (r wrist reconstruction, bmt x4, ) Section, Gallbladder, Tonsillectomy Respiratory: Yes (childhood asthma) Asthma Currently Using CPAP: No Currently Using BIPAP: No Cardiac: No Neurological: Yes Headaches /Migraines 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 Sexually Transmitted Disease: No HIV/AIDS: No Genitourinary: Yes UTI-Chronic Gastrointestinal: Yes Gall Bladder Disease Musculoskeletal: No Endocrine: No HEENT: Yes Chronic Ear Infection Cancer: No Psychosocial: Yes (post- depression) Anxiety Integumentary: No Blood Disorders: No Family Medical History Alcoholism Completed stroke 19 MOTHER Diabetes mellitus 19 FATHER Drug abuse 19 FATHER 19 MOTHER Hypertension 19 FATHER No Pertinent Family Hx Physical Exam Vital Signs Vital Signs - First Documented 07/22/21 13:35 Temp 36.1 Pulse 76 Resp 9 B/P (MAP) 138/90 (106) Pulse Ox 99 O2 Delivery Room Air Capillary Refill : Less Than 3 Seconds Height, Weight, BMI Height: 5'5.00" Weight: 177lbs. 2.0oz. 80.696645wk; 34.00 BMI Method:Stated General Appearance: No Apparent Distress, WD/WN HEENT: PERRL/EOMI, Normal ENT Inspection, Other (Mucous membranes somewhat dry) Neck: Normal Inspection Respiratory: Lungs Clear, Normal Breath Sounds, No Accessory Muscle Use, No Respiratory Distress, Other (Anterior chest wall tender to palpation) Cardiovascular: Regular Rate, Rhythm, No Edema, No Murmur Gastrointestinal: Normal Bowel Sounds, Non Tender, Soft Extremity: Normal Inspection, Non Tender, No Calf Tenderness, No Pedal Edema Neurologic/Psychiatric: Alert, Oriented x3, No Motor/Sensory Deficits, Normal Mood/Affect Skin: Normal Color, Warm/Dry Progress/Results/Core Measures Suspected Sepsis SIRS Temperature: Pulse: 76 Respiratory Rate: 9 Laboratory Tests 07/22/21 13:50: White Blood Count 12.2H Blood Pressure 138 /90 Mean: 106 Laboratory Tests 07/22/21 13:50: Creatinine 0.76, Platelet Count 360, Total Bilirubin 0.4 Results/Orders Lab Results Laboratory Tests Test 07/22/21 13:50 Range/Units White Blood Count 12.2 H 4.3-11.0 10^3/uL Red Blood Count 4.82 3.80-5.11 10^6/uL Hemoglobin 13.7 11.5-16.0 g/dL Hematocrit 42 35-52 % Mean Corpuscular Volume 86 80-99 fL Mean Corpuscular Hemoglobin 28 25-34 pg Mean Corpuscular Hemoglobin Concent 33 32-36 g/dL Red Cell Distribution Width 13.0 10.0-14.5 % Platelet Count 360 130-400 10^3/uL Mean Platelet Volume 8.6 L 9.0-12.2 fL Immature Granulocyte % (Auto) 1 % Neutrophils (%) (Auto) 49 42-75 % Lymphocytes (%) (Auto) 44 12-44 % Monocytes (%) (Auto) 6 0-12 % Eosinophils (%) (Auto) 0 0-10 % Basophils (%) (Auto) 0 0-10 % Neutrophils # (Auto) 5.9 1.8-7.8 10^3/uL Lymphocytes # (Auto) 5.4 H 1.0-4.0 10^3/uL Monocytes # (Auto) 0.7 0.0-1.0 10^3/uL Eosinophils # (Auto) 0.0 0.0-0.3 10^3/uL Basophils # (Auto) 0.0 0.0-0.1 10^3/uL Immature Granulocyte # (Auto) 0.1 0.0-0.1 10^3/uL D-Dimer 0.27 0.00-0.49 UG/ML Sodium Level 142 135-145 MMOL/L Potassium Level 3.5 L 3.6-5.0 MMOL/L Chloride Level 110 H 98-107 MMOL/L Carbon Dioxide Level 20 L 21-32 MMOL/L Anion Gap 12 5-14 MMOL/L Blood Urea Nitrogen 11 7-18 MG/DL Creatinine 0.76 0.60-1.30 MG/DL Estimat Glomerular Filtration Rate 111 BUN/Creatinine Ratio 14 Glucose Level 86 70-105 MG/DL Calcium Level 9.1 8.5-10.1 MG/DL Corrected Calcium 8.9 8.5-10.1 MG/DL Total Bilirubin 0.4 0.1-1.0 MG/DL Aspartate Amino Transf (AST/SGOT) 11 5-34 U/L Alanine Aminotransferase (ALT/SGPT) 17 0-55 U/L Alkaline Phosphatase 51 40-136 U/L Troponin I < 0.028 <0.028 NG/ML C-Reactive Protein High Sensitivity 0.15 0.00-0.50 MG/DL Total Protein 7.1 6.4-8.2 GM/DL Albumin 4.2 3.2-4.5 GM/DL Serum Test, Qualitative NEGATIVE NEGATIVE My Orders Orders - MICHAEL HUNT MD Cbc With Automated Diff (07/22/21 13:52) Comprehensive Metabolic Panel (07/22/21 13:52) Hs C Reactive Protein (07/22/21 13:52) Fibrin Degradation Products (07/22/21 13:52) Hcg,Qualitative Serum (07/22/21 13:52) Troponin I Rebekah (07/22/21 13:52) Ed Iv/Invasive Line Start (07/22/21 13:52) Ekg Tracing (07/22/21 13:52) Monitor-Rhythm Ecg Trace Only (07/22/21 13:52) Ondansetron Injection (Zofran Injectio (07/22/21 13:51) Ketorolac Injection (Toradol Injection) (07/22/21 13:51) Lactated Ringers (Lr 1000 Ml Iv Solution (07/22/21 13:51) Chest 1 View, Ap/Pa Only (07/22/21 13:54) Ketorolac Injection (Toradol Injection) (07/22/21 14:00) Ondansetron Injection (Zofran Injectio (07/22/21 14:00) Lactated Ringers (Lr 1000 Ml Iv Solution (07/22/21 14:00) Medications Given in ED Current Medications Medications Dose Ordered Sig/Param Route Start Time Stop Time Status Last Admin Dose Admin Ketorolac Tromethamine 15 mg ONCE ONCE IVP 07/22/21 14:00 07/22/21 14:01 DC 07/22/21 13:55 15 MG Lactated Ringer's 1,000 ml @ 0 mls/hr Q0M ONCE IV 07/22/21 14:00 07/22/21 14:01 DC 07/22/21 13:55 0 MLS/HR Ondansetron HCl 8 mg ONCE ONCE IVP 07/22/21 14:00 07/22/21 14:01 DC 07/22/21 13:55 8 MG Vital Signs/I&O 07/22/21 07/22/21 13:35 15:45 Temp 36.1 Pulse 76 78 Resp 9 16 B/P (MAP) 138/90 (106) 123/86 Pulse Ox 99 99 O2 Delivery Room Air Room Air Capillary Refill : Less Than 3 Seconds Blood Pressure Mean: 106 Progress Note : Progress Note Patient received IV fluids, Toradol, and Zofran with improvement. Work-up was unremarkable. See discharge instructions. ECG Initial ECG Impression Date: Jul 22, 2021 Initial ECG Impression Time: 13:43 Initial ECG Rate: 71 Initial ECG Rhythm: Normal Sinus Initial ECG Intervals: Normal Comment Normal sinus rhythm with no ST elevation or depression. No abnormal intervals or axis deviation. Diagnostic Imaging Diagonstic Imaging: Xray Plain Films/CT/US/NM/MRI: chest Comments NAME: WAYLON PLAZA [facility] REC#: [id number] PT STATUS: REG ER : 1995 PHYSICIAN: MICHAEL HUNT MD ADMIT DATE: 07/22/21/ER Signed Date of Exam:07/22/21 CHEST 1 VIEW, AP/PA ONLY Indication: Chest pain Portable chest 2:44 PM Heart size and pulmonary vasculature are normal. Lungs are clear. There are no effusions or pneumothoraces. IMPRESSION: Negative chest Dictated by: Dictated on workstation # [id number] Dict: 07/22/21 1448 Trans: 07/22/211447 TCB [id number] Interpreted by: JERSON NAYLOR MD Electronically signed by: JERSON NAYLOR MD 07/22/21 1448 Departure Impression Primary Impression: COVID-19 Additional Impressions: Pleuritic chest pain Nausea Disposition: 01 HOME, SELF-CARE Condition: Improved Departure-Patient Inst. Decision time for Depature: 15:20 Referrals: [facility] (PCP/Family) Primary Care Physician Patient Instructions: COVID-19 Overview Add. Discharge Instructions: For pain you may use ibuprofen up to 600 mg every 6 hours as needed and/or Tylenol (acetaminophen) up to 1000 mg every 6 hours as needed. Monitor your oxygen saturations at home. If you are having recurrent m easurements below 92% or any measurements below 90%, please return to the emergency room. Return to the ER if you have any other worsening of symptoms. Call with questions or concerns. Please follow through with your monoclonal antibody infusion scheduled for Sunday. All discharge instructions reviewed with patient and/or family. Voiced understanding. Scripts Ondansetron (Ondansetron Odt) 4 Mg Tab.rapdis 4 MG SL Q4H PRN for NAUSEA/VOMITING, #10 TAB . Prov: NI DIOP FINANCIAL SALES REPRESENTATIVE 07/22/21 MICHAEL HUNT MD Jul 22, 2021 15:16
[2021-07-22] MEDS ORDERED: ONDA4TAB11 SL ×2 (15:39→15:48)
[2021-07-22 15:45] VITALS: BP 123/86
== END 2021-07-22 15:45 | disposition home or self-care (01) ==
LOC: EDUNIT# 13:23 → ER 13:25
DX: U07.1 COVID-19 (principal); R11.0 Nausea
CPT/HCPCS: 36415; 71045; 80053; 84484; 84703; 85025; 85379; 86141; 93005; 93041

== ENCOUNTER 2021-07-25 09:37 | Outpatient (CLI) | payer MEDICAID ==
[~2021-07-25] VITALS: Ht 65 cm; Wt 95.3 kg
[~2021-07-25 09:37] MED LIST changes: +ONDA4TAB11 SL
[2021-07-25 09:45] VITALS: BP 132/88
[2021-07-25 09:48] VITALS: BP 132/88
[2021-07-25 09:52] VITALS: BP 132/88
[2021-07-25] MEDS ORDERED: diphenhydrAMINE 50 MG/ML INJ (BENADRYL) IV PRN (10:00)
[2021-07-25] MEDS ORDERED: EPINEPHrine INJECTION 1 MG/ML AMP IM PRN (10:00)
[2021-07-25] MEDS ORDERED: ONDANSETRON 4 MG/2 ML (SDV) Z0FRAN IV PRN (10:00)
[2021-07-25] MEDS ORDERED: CASIRIVIMAB/IMDEVIMAB 1,200 MG in NS (IVPB) 250 ML IV ONE (10:00)
[2021-07-25] MEDS ORDERED: ACETAMINOPHEN 500 MG TAB (TYLENOL) PO PRN (10:00)
[2021-07-25 11:35] VITALS: BP 112/76
== END 2021-07-25 11:36 ==
LOC: INFUSION 09:37
PROVIDERS: ATTEND Nurse Practitioner Community Health
DX: U07.1 COVID-19 (principal)

== ENCOUNTER 2021-10-27 20:12 | Emergency (ER) | payer MEDICAID ==
--- NOTE | 2021-10-27 20:36 | ED Upper Extremity ---
General Stated Complaint: R WRIST PAIN Source: patient Exam Limitations: no limitations History of Present Illness Date Seen by Provider: Oct 27, 2021 Time Seen by Provider: 20:33 Initial Comments To ER by private vehicle with reports of sudden onset dorsal right wrist pain onset 30 minutes ago after she had her arm elevated with her wrist extended, her kids then fell onto her hand further extending the wrist. Onset: just prior to arrival Severity: moderate Pain/Injury Location: right wrist Method of Injury: direct blow Modifying Factors: Worse With Movement Allergies and Home Medications Allergies Coded Allergies: paroxetine (Unverified Allergy, Unknown, HIVES, 07/25/21) hydrocodone (Verified Adverse Reaction, Mild, 07/21/17) Itching Patient Home Medication List Home Medication List Reviewed: Yes Docusate Sodium (Docusate Sodium) 100 Mg Capsule, 100 MG PO BID PRN for CONSTIPATION-1ST LINE Prescribed by: PARISH LOZA on 05/16/19 0734 Ibuprofen (Ibu) 600 Mg Tablet, 600 MG PO Q6HR Prescribed by: PARISH LOZA on 05/16/19 0734 Ondansetron (Ondansetron Odt) 4 Mg Tab.rapdis, 4 MG SL Q4H PRN for NAUSEA/VOMITING Prescribed by: NI DIOP on 07/22/21 1548 Oxycodone HCl/Acetaminophen (Percocet 5-325 mg Tablet) 1 Each Tablet, 1-2 TAB PO Q6HR PRN for PAIN-MODERATE Prescribed by: PARISH LOZA on 05/16/19 0734 Vit W-Ca,Fe,FA(<1 mg) ( Vitamins) 1 Each Tablet, 1 EACH PO DAILY, (Reported) Entered as Reported by: CARLA LOCO on 02/07/19 1535 Review of Systems Constitutional: see HPI EENTM: see HPI Respiratory: no symptoms reported Cardiovascular: no symptoms reported Genitourinary: no symptoms reported Musculoskeletal: see HPI Skin: no symptoms reported Psychiatric/Neurological: No Symptoms Reported Past Ytbyova-Oojqzx-Nlbqxf Hx Immunizations Up To Date Tetanus Booster (TDap): Unknown PED Vaccines UTD: Yes First/Initial COVID19 Vaccinat: 2020 Second COVID19 Vaccination Mike: APRIL 2021 Third COVID19 Vaccination Date: 2020 Seasonal Allergies Seasonal Allergies: Yes Past Medical History Surgeries: Yes (r wrist reconstruction, bmt x4, ) Section, Gallbladder, Tonsillectomy Respiratory: Yes (childhood asthma) Asthma Currently Using CPAP: No Currently Using BIPAP: No Cardiac: No Neurological: Yes Headaches /Migraines 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 2.0oz. 80.199292aa; 34.00 BMI Method:Stated General Appearance: WD/WN, no apparent distress HEENT: PERRL/EOMI Respiratory: no respiratory distress, no accessory muscle use Wrist: Yes normal inspection; No asymmetry, No bone tenderness, No deformity, No ecchymosis; Yes limited ROM, Yes pain, Yes soft tissue tenderness; No swelling Hand: normal inspection, non-tender, Right Neurologic/Tendon: normal sensation, normal motor functions Neurologic/Psychiatric: alert, normal mood/affect, oriented x 3 Skin: normal color, warm/dry Progress/Results/Core Measures Results/Orders My Orders Orders - NI DIOP APRN Ibuprofen Tablet (Motrin Tablet) (10/27/21 20:45) Acetaminophen Tablet/Caplet (Tylenol T (10/27/21 20:45) Wrist, Right, 3 Views Or More (10/27/21 20:31) Wrist-Vaughn (10/27/21 20:31) Departure Impression Primary Impression: Right wrist sprain Disposition: HOME, SELF-CARE Condition: Stable Departure-Patient Inst. Decision time for Depature: 20:35 Referrals: [facility] (PCP/Family) Primary Care Physician Patient Instructions: Wrist Sprain ED Add. Discharge Instructions: 1. Ice pack to the area. Tylenol and ibuprofen for pain. Return here for any concerns. Follow-up with your doctor next week for any ongoing pain. Wear the splint as needed for comfort, when the wrist feels better he can take it off. NI DIOP APRN Oct 27, 2021 20:36
[2021-10-27] MEDS ORDERED: IBUPROFEN 800 MG (MOTRIN) TAB PO ONE (20:45)
[2021-10-27] MEDS ORDERED: ACETAMINOPHEN 325 MG TABLET PO ONE (20:45)
--- NOTE | 2021-10-27 20:50 | Diagnostic Imaging Report ---
INDICATION: Pain after fall. Thee views were obtained. FINDINGS: The alignment is normal. There is no fracture or dislocation. Soft tissues are unremarkable. IMPRESSION: No acute fracture or dislocation. Dictated by: Dictated on workstation # [id number]
[2021-10-27 20:57] VITALS: BP 128/83
== END 2021-10-27 20:59 | disposition home or self-care (01) ==
LOC: EDUNIT# 20:12 → ER 20:16
DX: S63.501A Unspecified sprain of right wrist, initial encounter (principal); W19.XXXA Unspecified fall, initial encounter
CPT/HCPCS: 73110

== ENCOUNTER 2021-11-21 17:59 | Emergency (ER) | payer MEDICAID ==
[~2021-11-21] VITALS: Ht 165 cm; Wt 96.0 kg
--- NOTE | 2021-11-21 18:41 | ED Abdominal Pain ---
General Chief Complaint: Abdominal/GI Problems Stated Complaint: ABD PAIN Source of Information: Patient Exam Limitations: No Limitations (NI DIOP APRN) History of Present Illness Date Seen by Provider: November 21, 2021 Time Seen by Provider: 18:40 Initial Comments to ER with left-sided abdominal and left flank pain that began yesterday. No nausea no vomiting. Has been taking Tylenol and ibuprofen without any relief. No history of this. Pain is worsened by moving coughing breathing. Timing/Duration: 1-2 Days Severity/Quality: Moderate, Severe Location: LLQ Radiation: No Radiation Activities at Onset: None Associated Symptoms: Denies Symptoms (NI DIOP APRN) Allergies and Home Medications Allergies Coded Allergies: paroxetine (Unverified Allergy, Unknown, HIVES, 07/25/21) hydrocodone (Verified Adverse Reaction, Mild, 07/21/17) Itching Patient Home Medication List Home Medication List Reviewed: Yes (NI DIOP APRN) Docusate Sodium (Docusate Sodium) 100 Mg Capsule, 100 MG PO BID PRN for CONSTIPATION-1ST LINE Prescribed by: PARISH LOZA on 05/16/19 0734 Ibuprofen (Ibu) 600 Mg Tablet, 600 MG PO Q6HR Prescribed by: PARISH LOZA on 05/16/19 0734 Ondansetron (Ondansetron Odt) 4 Mg Tab.rapdis, 4 MG SL Q4H PRN for NAUSEA/VOMITING Prescribed by: NI DIOP on 07/22/21 1548 Oxycodone HCl/Acetaminophen (Percocet 5-325 mg Tablet) 1 Each Tablet, 1-2 TAB PO Q6HR PRN for PAIN-MODERATE Prescribed by: PARISH LOZA on 05/16/19 0734 Vit W-Ca,Fe,FA(<1 mg) ( Vitamins) 1 Each Tablet, 1 EACH PO DAILY, (Reported) Entered as Reported by: CARLA LOCO on 02/07/19 1535 Review of Systems Review of Systems Constitutional: see HPI EENTM: No Symptoms Reported Respiratory: No Symptoms Reported Cardiovascular: No Symptoms Reported Gastrointestinal: See HPI, Abdominal Pain Genitourinary: No Symptoms Reported Musculoskeletal: no symptoms reported Skin: no symptoms reported Psychiatric/Neurological: No Symptoms Reported Endocrine: No Symptoms Reported Hematologic/Lymphatic: No Symptoms Reported (NI DIOP APRN) Past Ihxjqan-Bkijnw-Wfmwgs Hx Immunizations Up To Date Tetanus Booster (TDap): Unknown PED Vaccines UTD: Yes First/Initial COVID19 Vaccinat: 2020 Second COVID19 Vaccination Mike: APRIL 2021 Third COVID19 Vaccination Date: 2020 (NI DIOP APRN) Seasonal Allergies Seasonal Allergies: Yes (NI DIOP APRN) Past Medical History Surgeries: Yes (r wrist reconstruction, bmt x4, ) Section, Gallbladder, Tonsillectomy Respiratory: Yes (childhood asthma) Asthma Currently Using CPAP: No Currently Using BIPAP: No Cardiac: No Neurological: Yes Headaches /Migraines 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 Sexually Transmitted Disease: No HIV/AIDS: No Genitourinary: Yes UTI-Chronic Gastrointestinal: Yes Gall Bladder Disease Musculoskeletal: No Endocrine: No HEENT: Yes Chronic Ear Infection Cancer: No Psychosocial: Yes (post- depression) Anxiety Integumentary: No Blood Disorders: No (NI DIOP APRN) Family Medical History Alcoholism Completed stroke 19 MOTHER Diabetes mellitus 19 FATHER Drug abuse 19 FATHER 19 MOTHER Hypertension 19 FATHER No Pertinent Family Hx (NI DIOP APRN) Physical Exam Vital Signs Vital Signs - First Documented 11/21/21 18:40 Temp 36.8 Pulse 84 Resp 22 B/P (MAP) 139/89 (106) Pulse Ox 98 O2 Delivery Room Air (REBECCA LAGUERRE MD) Vital Signs Capillary Refill : (NI DIOP APRN) Height/Weight/BMI Height: 5'5.00" Weight: 177lbs. 2.0oz. 80.617439sh; 34.00 BMI Method:Stated General Appearance: WD/WN, no apparent distress Respiratory: no respiratory distress, no accessory muscle use Gastrointestinal: normal bowel sounds, soft, tenderness (Left-sided) Extremities: normal range of motion, non-tender Neurologic/Psychiatric: alert, normal mood/affect, oriented x 3 Skin: normal color, warm/dry (NI DIOP APRN) Progress/Results/Core Measures Results/Orders Lab Results Laboratory Tests Test 11/21/21 18:46 11/21/21 18:54 11/21/21 19:20 Range/Units Urine Color YELLOW Urine Clarity SL CLOUDY Urine pH 6.0 5-9 Urine Specific [place] 1.025 H 1.016-1.022 Urine Protein NEGATIVE NEGATIVE Urine Glucose (UA) NEGATIVE NEGATIVE Urine Ketones NEGATIVE NEGATIVE Urine Nitrite NEGATIVE NEGATIVE Urine Bilirubin NEGATIVE NEGATIVE Urine Urobilinogen 0.2 < = 1.0 MG/DL Urine Leukocyte Esterase NEGATIVE NEGATIVE Urine RBC (Auto) 1+ H NEGATIVE Urine RBC 2-5 H /HPF Urine WBC NONE /HPF Urine Squamous Epithelial Cells NONE /HPF Urine Crystals NONE /LPF Urine Amorphous Sediment FEW ROSARIO URATES H /LPF Urine Bacteria NEGATIVE /HPF Urine Casts NONE /LPF Urine Mucus NEGATIVE /LPF Urine Culture Indicated NO White Blood Count 11.3 H 4.3-11.0 10^3/uL Red Blood Count 4.76 3.80-5.11 10^6/uL Hemoglobin 13.5 11.5-16.0 g/dL Hematocrit 40 35-52 % Mean Corpuscular Volume 85 80-99 fL Mean Corpuscular Hemoglobin 28 25-34 pg Mean Corpuscular Hemoglobin Concent 34 32-36 g/dL Red Cell Distribution Width 12.9 10.0-14.5 % Platelet Count 331 130-400 10^3/uL Mean Platelet Volume 8.9 L 9.0-12.2 fL Immature Granulocyte % (Auto) 0 % Neutrophils (%) (Auto) 57 42-75 % Lymphocytes (%) (Auto) 36 12-44 % Monocytes (%) (Auto) 6 0-12 % Eosinophils (%) (Auto) 1 0-10 % Basophils (%) (Auto) 1 0-10 % Neutrophils # (Auto) 6.4 1.8-7.8 10^3/uL Lymphocytes # (Auto) 4.1 H 1.0-4.0 10^3/uL Monocytes # (Auto) 0.7 0.0-1.0 10^3/uL Eosinophils # (Auto) 0.1 0.0-0.3 10^3/uL Basophils # (Auto) 0.1 0.0-0.1 10^3/uL Immature Granulocyte # (Auto) 0.0 0.0-0.1 10^3/uL Sodium Level 140 135-145 MMOL/L Potassium Level 3.6 3.6-5.0 MMOL/L Chloride Level 107 98-107 MMOL/L Carbon Dioxide Level 23 21-32 MMOL/L Anion Gap 10 5-14 MMOL/L Blood Urea Nitrogen 9 7-18 MG/DL Creatinine 0.77 0.60-1.30 MG/DL Estimat Glomerular Filtration Rate 109 BUN/Creatinine Ratio 12 Glucose Level 91 70-105 MG/DL Calcium Level 9.9 8.5-10.1 MG/DL Corrected Calcium 9.5 8.5-10.1 MG/DL Total Bilirubin 0.4 0.1-1.0 MG/DL Aspartate Amino Transf (AST/SGOT) 20 5-34 U/L Alanine Aminotransferase (ALT/SGPT) 37 0-55 U/L Alkaline Phosphatase 57 40-136 U/L Total Protein 7.3 6.4-8.2 GM/DL Albumin 4.5 3.2-4.5 GM/DL Lipase 17 8-78 U/L Human Chorionic Gonadotropin, Quant < 5 <5 MIU/ML (REBECCA LAGUERRE MD) Medications Given in ED Current Medications Medications Dose Ordered Sig/Param Route Start Time Stop Time Status Last Admin Dose Admin Ketorolac Tromethamine 15 mg ONCE ONCE IVP 11/21/21 18:45 11/21/21 18:46 DC 11/21/21 18:56 15 MG Oxycodone/ Acetaminophen 1 ea Q4H PRN PO 11/21/21 20:30 11/21/21 20:32 DC 11/21/21 20:29 1 EA (REBECCA LAGUERRE MD) Vital Signs/I&O 11/21/21 11/21/21 11/21/21 18:40 18:56 20:32 Temp 36.8 36.8 36.5 Pulse 84 78 Resp 22 18 B/P (MAP) 139/89 (106) 127/78 Pulse Ox 98 99 O2 Delivery Room Air Room Air (REBECCA LAGUERRE MD) Departure Communication (Admissions) NAME: WAYLON PLAZA [facility] REC#: [id number] PT STATUS: REG ER : 1995 PHYSICIAN: NI DIOP APRN ADMIT DATE: 11/21/21/ER Draft Date of Exam:11/21/21 CT ABD/PELVIS WO(KIDNEY STONE) PROCEDURE: CT urinary tract, rule out kidney stone. TECHNIQUE: Multiple contiguous axial images were obtained through the abdomen and pelvis without the use of intravenous contrast. Auto Exposure Controls were utilized during the CT exam to meet ALARA standards for radiation dose reduction. INDICATION: Left-sided flank pain. COMPARISON: 11/15/2016. FINDINGS: The heart is unremarkable. The lung bases are clear. No evidence of hydronephrosis or obstructing calculi. Punctate nonobstructing calculus is seen in the inferior pole of the left kidney measuring 2 mm. There is mild increased attenuation in the medulla of the kidneys bilaterally. No perinephric fat stranding. The urinary bladder is nondistended. The liver, spleen, pancreas, and adrenal glands have a normal appearance. The gallbladder is surgically absent. There is no pathologically enlarged mesenteric or retroperitoneal adenopathy. The bowel loops are nondilated. The appendix is seen in the right lower quadrant and has a normal appearance. There is no free fluid or free air. No acute osseous abnormalities. Dominant follicle/cyst is seen in the right ovary. There is no free air, loculated collection, or adenopathy in the pelvis. IMPRESSION: 1. No hydronephrosis or obstructing calculi. Punctate nonobstructing calculus is seen in the inferior pole of the left kidney. 2. Mildly increased attenuation in the medulla of the kidneys, which can be seen with medullary sponge kidney. Dictated on workstation # [id number] Dict: 11/21/212009 Trans: 11/21/212014 [facility] [id number] Interpreted by: MASSIEL GUERRIER DO Electronically signed by: (NI DIOP APRN) Impression Primary Impression: Left sided abdominal pain of unknown cause Disposition: 01 HOME, SELF-CARE Condition: Stable Departure-Patient Inst. Decision time for Depature: 20:17 (IN DIOP APRN) Referrals: [facility] [place] (PCP/Family) Primary Care Physician Patient Instructions: Abdominal Pain, Adult ED Work/School Note: Work Release Form Date Seen in the Emergency Department: November 21, 2021 Return to Work: November 23, 2021 PHYSICIAN ATTESTATION NOTE: I was present in the ER while [employer] / PA saw the patient, but I was not involved in the care, exam, or management of the patient. (REBECCA LAGUERRE MD) NI DIPO APRN November 21, 2021 18:41 REBECCA LAGUERRE MD November 22, 2021 04:12
[2021-11-21] MEDS ORDERED: KETOROLAC 30 MG/ML VIAL IVP ONE (18:45)
[2021-11-21 18:49] LABS: BILIRUBIN,URINE NEGATIVE (NEGATIVE); CLARITY,URINE SL CLOUDY; COLOR,URINE YELLOW; GLUCOSE, URINE (UA) NEGATIVE (NEGATIVE); KETONES,URINE NEGATIVE (NEGATIVE); LEUKOCYTE ESTERASE ,URINE NEGATIVE (NEGATIVE); NITRITE,URINE NEGATIVE (NEGATIVE); PROTEIN,URINE NEGATIVE (NEGATIVE)
[2021-11-21 19:00] LABS: BACTERIA,URINE NEGATIVE /HPF
[2021-11-21 19:00] LABS: BASOPHILS # (AUTO) 0.1 10^3/uL (0.0-0.1); BASOPHILS % (AUTO) 1 % (0-10); EOSINOPHILS # (AUTO) 0.1 10^3/uL (0.0-0.3); EOSINOPHILS % (AUTO) 1 % (0-10); HEMATOCRIT 40 % (35-52); HEMOGLOBIN 13.5 g/dL (11.5-16.0); LYMPHOCYTES # (AUTO) 4.1 10^3/uL (1.0-4.0); LYMPHOCYTES % (AUTO) 36 % (12-44); MEAN CORPUSCULAR HEMOGLOBIN 28 pg (25-34); MEAN CORPUSCULAR HGB CONC 34 g/dL (32-36); MEAN CORPUSCULAR VOLUME 85 fL (80-99); MEAN PLATELET VOLUME 8.9 fL (9.0-12.2); MONOCYTES # (AUTO) 0.7 10^3/uL (0.0-1.0); MONOCYTES % (AUTO) 6 % (0-12); NEUTROPHILS # (AUTO) 6.4 10^3/uL (1.8-7.8); NEUTROPHILS % (AUTO) 57 % (42-75); PLATELET COUNT 331 10^3/uL (130-400); WHITE BLOOD COUNT 11.3 10^3/uL (4.3-11.0)
[2021-11-21 19:01] LABS: AMORPHOUS SEDIMENT,UR FEW AMOR URATES /LPF
[2021-11-21 19:11] LABS: ALBUMIN 4.5 GM/DL (3.2-4.5); POTASSIUM 3.6 MMOL/L (3.6-5.0)
[2021-11-21 19:13] LABS: CALCIUM 9.9 MG/DL (8.5-10.1)
[2021-11-21 19:14] LABS: TOTAL PROTEIN 7.3 GM/DL (6.4-8.2)
[2021-11-21 19:16] LABS: BILIRUBIN,TOTAL 0.4 MG/DL (0.1-1.0)
[2021-11-21 19:18] LABS: CREATININE SERUM 0.77 MG/DL (0.60-1.30)
--- NOTE | 2021-11-21 20:16 | Diagnostic Imaging Report ---
PROCEDURE: CT urinary tract, rule out kidney stone. TECHNIQUE: Multiple contiguous axial images were obtained through the abdomen and pelvis without the use of intravenous contrast. Auto Exposure Controls were utilized during the CT exam to meet ALARA standards for radiation dose reduction. INDICATION: Left-sided flank pain. COMPARISON: 11/15/2016. FINDINGS: The heart is unremarkable. The lung bases are clear. No evidence of hydronephrosis or obstructing calculi. Punctate nonobstructing calculus is seen in the inferior pole of the left kidney measuring 2 mm. There is mild increased attenuation in the medulla of the kidneys bilaterally. No perinephric fat stranding. The urinary bladder is nondistended. The liver, spleen, pancreas, and adrenal glands have a normal appearance. The gallbladder is surgically absent. There is no pathologically enlarged mesenteric or retroperitoneal adenopathy. The bowel loops are nondilated. The appendix is seen in the right lower quadrant and has a normal appearance. There is no free fluid or free air. No acute osseous abnormalities. Dominant follicle/cyst is seen in the right ovary. There is no free air, loculated collection, or adenopathy in the pelvis. IMPRESSION: 1. No hydronephrosis or obstructing calculi. Punctate nonobstructing calculus is seen in the inferior pole of the left kidney. 2. Mildly increased attenuation in the medulla of the kidneys, which can be seen with medullary sponge kidney. Dictated by: Dictated on workstation # [id number]
[2021-11-21] MEDS ORDERED: RX-OXYCODONE/APAP 5-325 MG #4 TAB PK PO PRN (20:30)
[2021-11-21 20:32] VITALS: BP 127/78
== END 2021-11-21 20:32 | disposition home or self-care (01) ==
LOC: EDUNIT# 17:59 → ER 18:00
DX: R10.32 Left lower quadrant pain (principal)
CPT/HCPCS: 36415; 74176; 80053; 81000; 83690; 84702; 84703; 85025

== ENCOUNTER 2022-01-08 17:38 | Emergency (ER) | payer MEDICAID | END 2022-01-08 18:00 | disposition left against medical advice (07) | LOC: EDUNIT# 17:38 → ER 17:39 | DX: R11.2 Nausea with vomiting, unspecified (principal) ==

== ENCOUNTER 2022-01-16 15:45 | Emergency (ER) | payer MEDICAID ==
[~2022-01-16] VITALS: Ht 165.1 cm; Wt 93.0 kg
[2022-01-16 16:40] VITALS: BP 117/69
--- NOTE | 2022-01-16 17:12 | ED Headache ---
General Chief Complaint: Head/Cervical Problems Stated Complaint: HEADACHE X 7 DAYS Nursing Triage Note: PT AMBULATE TO ROOM FT1 WITH C/O HEADACHE X7 DAYS. PT STATES "IT HAS BLOWN INTO A FULL BLOWN HEADACHE." PT REPORTS TAKING TYLENOL, IBUPROFEN, AND ALEVE FOR PAIN WITHOUT RELIEF. Source: patient Exam Limitations: no limitations History of Present Illness Date Seen by Provider: Jan 16, 2022 Time Seen by Provider: 17:10 Initial Comments Patient is a 26-year-old female presents ED with head pain with nausea and photophobia. History of migraines. Last migraine year and a half ago. Today's head pain feels similar. She states pain located the front part of her head in posterior head. Started 1 week ago. Increased pain today. No relief with Tylenol, Motrin or ibuprofen. She has had nausea without vomiting or diarrhea. Associated photophobia. She denies of any recent upper respiratory infection, neck pain, back pain, dysuria, hematuria, visual changes, unilateral muscle weakness or sensory changes. Allergies and Home Medications Allergies Coded Allergies: paroxetine (Unverified Allergy, Unknown, HIVES, 07/25/21) hydrocodone (Verified Adverse Reaction, Mild, 07/21/17) Itching Patient Home Medication List Home Medication List Reviewed: Yes Docusate Sodium (Docusate Sodium) 100 Mg Capsule, 100 MG PO BID PRN for CONSTIPATION-1ST LINE Prescribed by: PARISH LOZA on 05/16/19 0734 Ibuprofen (Ibu) 600 Mg Tablet, 600 MG PO Q6HR Prescribed by: PARISH LOZA on 05/16/19 0734 Ondansetron (Ondansetron Odt) 4 Mg Tab.rapdis, 4 MG SL Q4H PRN for NAUSEA/VOMITING Prescribed by: NI DIOP on 07/22/21 1548 Oxycodone HCl/Acetaminophen (Percocet 5-325 mg Tablet) 1 Each Tablet, 1-2 TAB PO Q6HR PRN for PAIN-MODERATE Prescribed by: PARISH LOZA on 05/16/19 0734 Vit W-Ca,Fe,FA(<1 mg) ( Vitamins) 1 Each Tablet, 1 EACH PO DAILY, (Reported) Entered as Reported by: CARLA LOCO on 02/07/19 1535 Review of Systems Review of Systems Constitutional: No chills, No diaphoresis, No malaise, No weakness Eyes: Denies Blurred Vision, Denies Drainage, Denies Decreased Acuity; Photophobia Ears, Nose, Mouth, Throat: denies ear pain, denies ear discharge Respiratory: No cough, No dyspnea on exertion, No hemoptysis, No short of breath Cardiovascular: No chest pain Gastrointestinal: No abdominal pain, No diarrhea; nausea; No vomiting Genitourinary: No decreased output, No discharge Musculoskeletal: No back pain, No joint pain, No muscle pain, No muscle stiffness, No muscle cramps Skin: No change in color, No change in hair/nails Psychiatric/Neurological: Denies Anxiety; Headache All Other Systems Reviewed Negative Unless Noted: Yes Past Powuvci-Zohwpd-Jsfihx Hx Patient Social History Smoking Status: Never a Smoker Smokeless Tobacco Frequency: Never a User Use of E-Cig and/or Vaping dev: Yes E-Cig or Vaping type used: Nicotine Use of E-Cig and/or Vaping Angel: Current Everyday User Substance use?: No Alcohol Use?: No Pt feels they are or have been: No Immunizations Up To Date Tetanus Booster (TDap): Unknown PED Vaccines UTD: Yes First/Initial COVID19 Vaccinat: 2020 Second COVID19 Vaccination Mike: APRIL 2021 Third COVID19 Vaccination Date: 2020 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: 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 Seasonal Allergies Seasonal Allergies: Yes Past Medical History Surgery/Hospitalization HX: rt wrist, t&a, 2 c sections, gallbladder, lt knee Surgeries: Yes (r wrist reconstruction, bmt x4, ) Section, Gallbladder, Tonsillectomy Respiratory: Yes (childhood asthma) Asthma Currently Using CPAP: No Currently Using BIPAP: No Cardiac: No Neurological: Yes Headaches /Migraines 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 Sexually Transmitted Disease: No HIV/AIDS: No Genitourinary: Yes UTI-Chronic Gastrointestinal: Yes Gall Bladder Disease Musculoskeletal: No Endocrine: No HEENT: Yes Chronic Ear Infection Cancer: No Psychosocial: Yes (post- depression) Anxiety Integumentary: No Blood Disorders: No Family Medical History Alcoholism Completed stroke 19 MOTHER Diabetes mellitus 19 FATHER Drug abuse 19 FATHER 19 MOTHER Hypertension 19 FATHER No Pertinent Family Hx Physical Exam Vital Signs Vital Signs - First Documented 01/16/22 16:40 Temp 36.4 Pulse 79 Resp 16 B/P (MAP) 117/69 (85) O2 Delivery Room Air Capillary Refill : Less Than 3 Seconds Height, Weight, BMI Height: 5'5.00" Weight: 177lbs. 2.0oz. [id number]; 34.00 BMI Method:Stated General Appearance: WD/WN, no apparent distress HEENT: PERRL/EOMI, normal ENT inspection, TMs normal Neck: non-tender, full range of motion, supple, normal inspection Cardiovascular: regular rate, rhythm, no edema, no gallop, no JVD Respiratory: chest non-tender, lungs clear, normal breath sounds, no respiratory distress, no accessory muscle use Gastrointestinal: normal bowel sounds, non tender, soft, no organomegaly Back: normal inspection, no CVA tenderness, no vertebral tenderness Extremities: normal range of motion, non-tender, normal inspection, no pedal edema Skin: normal color, warm/dry Progress/Results/Core Measures Results/Orders My Orders Orders - NILO MOREL Diphenhydramine Tablet (Benadryl Tablet) (01/16/22 17:15) Prochlorperazine Tablet (Compazine Table (01/16/22 17:15) Ketorolac Injection (Toradol Injection) (01/16/22 17:15) Vital Signs/I&O 01/16/22 16:40 Temp 36.4 Pulse 79 Resp 16 B/P (MAP) 117/69 (85) O2 Delivery Room Air Blood Pressure Mean: 85 Departure Communication (PCP) Patient is a 26-year-old female presents ED with headache. Located to the front part of her head and occipital region. History of migraines last migraine a year and a half ago and states this feels very similar. Nausea with photophobia. Patient was requesting oral medication. Before able to give medication she states she needed to go picket [employer] her children. Patient left AMA. Patient has no neurological red flag findings. She is afebrile. No meningeal signs. She states she will return back to ED if symptoms worsen. Discussed anti-inflammatories at home. Impression Primary Impression: Headache Disposition: AGAINST MEDICAL ADVICE Condition: Stable Departure-Patient Inst. Decision time for Depature: 17:37 Referrals: [facility] (PCP/Family) Primary Care Physician Patient Instructions: Headache, Adult ED NILO MOREL Jan 16, 2022 17:12
[2022-01-16] MEDS ORDERED: KETOROLAC 30 MG/ML VIAL IM ONE (17:15)
[2022-01-16] MEDS ORDERED: diphenhydrAMINE 25 MG TAB (BENADRYL) PO ONE (17:15)
[2022-01-16] MEDS ORDERED: PROCHLORPERAZINE 10 MG TAB (COMPAZINE) PO ONE (17:15)
== END 2022-01-16 17:38 | disposition left against medical advice (07) ==
LOC: EDUNIT# 15:45 → ER 15:47
DX: R51.9 Headache, unspecified (principal); F17.290 Nicotine dependence, other tobacco product, uncomplicated; Z86.69 Personal history of other diseases of the nervous system and sense organs
CPT/HCPCS: 99281

== ENCOUNTER 2022-02-08 20:28 | Emergency (ER) | payer MEDICAID ==
[2022-02-08] MEDS ORDERED: CEFEPIME INJECTION 2,000 MG in NS (IVPB) 50 ML IV ONE (20:45)
[2022-02-08 20:46] VITALS: BP 120/89
[2022-02-08] MEDS ORDERED: fentaNYL INJ 100 MCG/2 ML AMP IVP STA (20:49)
--- NOTE | 2022-02-08 20:49 | ED Abdominal Pain ---
General Stated Complaint: ABD PAIN Source of Information: Patient Exam Limitations: No Limitations (NILO MOREL) History of Present Illness Date Seen by Provider: Feb 08, 2022 Time Seen by Provider: 20:46 Initial Comments Patient is a 26-year-old female who presents ED with generalized abdominal pain. Pain has been ongoing since Sunday. Described as a sharp stabbing pain without any radiation to her back. Denies of any urinary symptoms such as pain with urination, increased urine frequency, vaginal bleeding or vaginal discharge. Patient Was seen at [facility] started on amoxicillin and a second antibiotic that she cannot recall. She was placed on a medication for her stomach that she cannot recall. She had an episode of vomiting on Sunday. 2-3 episodes of diarrhea 2 days ago. The symptoms have improved. Patient Was diagnosed with peritonitis. History of cholecystectomy. Denies fever, chest pain, shortness of breath, visual changes, ear pain (NILO MOREL) Allergies and Home Medications Allergies Coded Allergies: paroxetine (Unverified Allergy, Unknown, HIVES, 07/25/21) hydrocodone (Verified Adverse Reaction, Mild, 07/21/17) Itching Patient Home Medication List Home Medication List Reviewed: Yes (NILO MOREL) Docusate Sodium (Docusate Sodium) 100 Mg Capsule, 100 MG PO BID PRN for CONSTI PATION-1ST LINE Prescribed by: PARISH LOAZ on 05/16/19 0734 Ibuprofen (Ibu) 600 Mg Tablet, 600 MG PO Q6HR Prescribed by: PARISH LOZA on 05/16/19 0734 Ondansetron (Ondansetron Odt) 4 Mg Tab.rapdis, 4 MG SL Q4H PRN for NAUSEA/VOMITING Prescribed by: NI DIOP on 07/22/21 1548 Oxycodone HCl/Acetaminophen (Percocet 5-325 mg Tablet) 1 Each Tablet, 1-2 TAB PO Q6HR PRN for PAIN-MODERATE Prescribed by: PARISH LOZA on 05/16/19 0734 Vit W-Ca,Fe,FA(<1 mg) ( Vitamins) 1 Each Tablet, 1 EACH PO DAILY, (Reported) Entered as Reported by: CARLA LOCO on 02/07/19 1535 Review of Systems Review of Systems Constitutional: No chills, No diaphoresis, No malaise, No weakness EENTM: No Double Vision, No Eye Pain Respiratory: Denies Cough, Denies SOA With Exertion, Denies SOA at Rest Cardiovascular: Denies Chest Pain Gastrointestinal: Abdominal Pain, Diarrhea, Nausea, Vomiting Genitourinary: Denies Burning Musculoskeletal: No back pain, No joint pain Skin: No change in color, No change in hair/nails (NILO MOREL) All Other Systems Reviewed Negative Unless Noted: Yes (NILO MOREL) Past Rlnnakd-Deiotq-Zrhixh Hx Immunizations Up To Date Tetanus Booster (TDap): Unknown PED Vaccines UTD: Yes First/Initial COVID19 Vaccinat: 2020 Second COVID19 Vaccination Mike: APRIL 2021 Third COVID19 Vaccination Date: 2020 (NILO MOREL) Seasonal Allergies Seasonal Allergies: Yes (NILO MOREL) Past Medical History Surgery/Hospitalization HX: rt wrist, t&a, 2 c sections, gallbladder, lt knee Surgeries: Yes (r wrist reconstruction, bmt x4, ) Section, Gallbladder, Tonsillectomy Respiratory: Yes (childhood asthma) Asthma Currently Using CPAP: No Currently Using BIPAP: No Cardiac: No Neurological: Yes Headaches /Migraines 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 Sexually Transmitted Disease: No HIV/AIDS: No Genitourinary: Yes UTI-Chronic Gastrointestinal: Yes Gall Bladder Disease Musculoskeletal: No Endocrine: No HEENT: Yes Chronic Ear Infection Cancer: No Psychosocial: Yes (post- depression) Anxiety Integumentary: No Blood Disorders: No (NILO MOREL) Family Medical History Alcoholism Completed stroke 19 MOTHER Diabetes mellitus 19 FATHER Drug abuse 19 FATHER 19 MOTHER Hypertension 19 FATHER No Pertinent Family Hx (NILO MOREL) Physical Exam Vital Signs Vital Signs - First Documented 02/08/22 20:46 Pulse 106 Resp 18 B/P (MAP) 120/89 (99) Pulse Ox 98 (MICHAEL HUNT MD) Vital Signs Capillary Refill : (NILO MOREL) Height/Weight/BMI Height: 5'5.00" Weight: 177lbs. 2.0oz. 80.162012jq; 34.00 BMI Method:Stated General Appearance: WD/WN, no apparent distress HEENT: PERRL/EOMI, normal ENT inspection, TMs normal, pharynx normal Neck: non-tender, full range of motion, supple Respiratory: chest non-tender, lungs clear, normal breath sounds, no respiratory distress, no accessory muscle use Cardiovascular: regular rate, rhythm, no edema, no gallop, no JVD Gastrointestinal: normal bowel sounds, non tender, no organomegaly, no pulsatile mass, other (Diffuse tenderness on palpation) Extremities: normal range of motion, non-tender, normal inspection, no pedal edema Back: normal inspection, no CVA tenderness, no vertebral tenderness 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, no motor/sensory deficits, alert, normal mood/affect, oriented x 3 Skin: normal color (NILO MOREL) Progress/Results/Core Measures Results/Orders Lab Results Laboratory Tests Test 02/08/22 20:43 02/08/22 21:22 Range/Units White Blood Count 12.3 H 4.3-11.0 10^3/uL Red Blood Count 5.10 3.80-5.11 10^6/uL Hemoglobin 14.4 11.5-16.0 g/dL Hematocrit 43 35-52 % Mean Corpuscular Volume 84 80-99 fL Mean Corpuscular Hemoglobin 28 25-34 pg Mean Corpuscular Hemoglobin Concent 34 32-36 g/dL Red Cell Distribution Width 13.0 10.0-14.5 % Platelet Count 392 130-400 10^3/uL Mean Platelet Volume 8.8 L 9.0-12.2 fL Immature Granulocyte % (Auto) 0 % Neutrophils (%) (Auto) 58 42-75 % Lymphocytes (%) (Auto) 35 12-44 % Monocytes (%) (Auto) 5 0-12 % Eosinophils (%) (Auto) 1 0-10 % Basophils (%) (Auto) 0 0-10 % Neutrophils # (Auto) 7.1 1.8-7.8 10^3/uL Lymphocytes # (Auto) 4.3 H 1.0-4.0 10^3/uL Monocytes # (Auto) 0.7 0.0-1.0 10^3/uL Eosinophils # (Auto) 0.1 0.0-0.3 10^3/uL Basophils # (Auto) 0.1 0.0-0.1 10^3/uL Immature Granulocyte # (Auto) 0.1 0.0-0.1 10^3/uL Sodium Level 138 135-145 MMOL/L Potassium Level 4.0 3.6-5.0 MMOL/L Chloride Level 105 98-107 MMOL/L Carbon Dioxide Level 20 L 21-32 MMOL/L Anion Gap 13 5-14 MMOL/L Blood Urea Nitrogen 9 7-18 MG/DL Creatinine 0.85 0.60-1.30 MG/DL Estimat Glomerular Filtration Rate 97 BUN/Creatinine Ratio 11 Glucose Level 115 H 70-105 MG/DL Calcium Level 9.7 8.5-10.1 MG/DL Corrected Calcium 8.5-10.1 MG/DL Total Bilirubin 0.3 0.1-1.0 MG/DL Aspartate Amino Transf (AST/SGOT) 18 5-34 U/L Alanine Aminotransferase (ALT/SGPT) 30 0-55 U/L Alkaline Phosphatase 73 40-136 U/L Total Protein 7.6 6.4-8.2 GM/DL Albumin 4.6 H 3.2-4.5 GM/DL Lipase 36 8-78 U/L Urine Color YELLOW Urine Clarity CLEAR Urine pH 6.5 5-9 Urine Specific [place] 1.010 L 1.016-1.022 Urine Protein NEGATIVE NEGATIVE Urine Glucose (UA) NEGATIVE NEGATIVE Urine Ketones NEGATIVE NEGATIVE Urine Nitrite NEGATIVE NEGATIVE Urine Bilirubin NEGATIVE NEGATIVE Urine Urobilinogen 0.2 < = 1.0 MG/DL Urine Leukocyte Esterase NEGATIVE NEGATIVE Urine RBC (Auto) 3+ H NEGATIVE Urine RBC 10-25 H /HPF Urine WBC 0-2 /HPF Urine Squamous Epithelial Cells 0-2 /HPF Urine Renal Epithelial Cells NONE /HPF Urine Crystals NONE /LPF Urine Bacteria NEGATIVE /HPF Urine Casts NONE /LPF Urine Mucus NEGATIVE /LPF Urine Culture Indicated NO Urine Test NEGATIVE NEGATIVE (MICHAEL HUNT MD) Medications Given in ED Current Medications Medications Dose Ordered Sig/Param Route Start Time Stop Time Status Last Admin Dose Admin Iohexol 100 ml ONCE ONCE IV 02/08/22 21:15 02/08/22 21:16 DC 02/08/22 21:16 100 ML Ketorolac Tromethamine 30 mg ONCE ONCE IVP 02/08/22 22:15 8/3/22 22:16 DC 02/08/22 22:30 30 MG Sodium Chloride 100 ml ONCE ONCE IV 02/08/22 21:15 02/08/22 21:16 DC 02/08/22 21:16 80 ML (MICHAEL HUNT MD) Vital Signs/I&O 02/08/22 20:46 Pulse 106 Resp 18 B/P (MAP) 120/89 (99) Pulse Ox 98 (MICHAEL HUNT MD) Departure Communication (PCP) Patient states she was diagnosed with peritonitis. Was placed on medication for acid reflex and started on 2 different antibiotics. She has diffuse tenderness. Pain is described as severe. Urinalysis was negative for infection or . Positive for blood in her urine. She had a slight elevated white blood count. CT abdomen pelvis was negative for acute abnormality. Negative for appendicitis. diverticulosis noted. Small right ovarian cyst. Denies of any vaginal discharge or concern for sexual transmitted infection. Patient was given a dose of IV pain medication Toradol with improvement of pain. It is recommended continue with medication as prescribed. Discussed [id number] Pepto-Bismol, Mylanta if developing any type of indigestion or upset stomach. She has no vomiting or diarrhea today. This could be viral in nature as well. Hematuria noted in urine. Patient states she did start her menstrual cycle with mild bleeding. No severe right lower quadrant tenderness. Patient negative for . denies history of severe pain with menstrual cycle. No history of abnormal bleeding. Patient pain is well controlled. No acute distress. P atient will be discharged with strict follow-up with primary care physician. If any worsening symptoms return back to ED for further evaluation. Discussed anti-inflammatories for pain relief. Avoid excessive NSAID use (NILO MOREL) Impression Primary Impression: Abdominal pain Disposition: 01 HOME, SELF-CARE Condition: Stable Departure-Patient Inst. Decision time for Depature: 22:13 (NILO MOREL) Referrals: [facility] (PCP/Family) Primary Care Physician Patient Instructions: Abdominal Pain, Adult ED Add. Discharge Instructions: Recommend continue with prescribed medication from [facility]. Outpatient follow-up with [facility]. ATTENDING PHYSICIAN NOTE: I was physically present as attending physician in the emergency department during the care of this patient, but I was not directly involved in the decision making or delivery of care for this patient. (MICHAEL HUNT MD) NILO MOREL Feb 08, 2022 20:49 MICHAEL HUNT MD Feb 09, 2022 08:48
[2022-02-08 20:53] LABS: BASOPHILS # (AUTO) 0.1 10^3/uL (0.0-0.1); BASOPHILS % (AUTO) 0 % (0-10); EOSINOPHILS # (AUTO) 0.1 10^3/uL (0.0-0.3); EOSINOPHILS % (AUTO) 1 % (0-10); HEMATOCRIT 43 % (35-52); HEMOGLOBIN 14.4 g/dL (11.5-16.0); LYMPHOCYTES # (AUTO) 4.3 10^3/uL (1.0-4.0); LYMPHOCYTES % (AUTO) 35 % (12-44); MEAN CORPUSCULAR HEMOGLOBIN 28 pg (25-34); MEAN CORPUSCULAR HGB CONC 34 g/dL (32-36); MEAN CORPUSCULAR VOLUME 84 fL (80-99); MEAN PLATELET VOLUME 8.8 fL (9.0-12.2); MONOCYTES # (AUTO) 0.7 10^3/uL (0.0-1.0); MONOCYTES % (AUTO) 5 % (0-12); NEUTROPHILS # (AUTO) 7.1 10^3/uL (1.8-7.8); NEUTROPHILS % (AUTO) 58 % (42-75); PLATELET COUNT 392 10^3/uL (130-400); WHITE BLOOD COUNT 12.3 10^3/uL (4.3-11.0)
[2022-02-08 21:03] LABS: ALBUMIN 4.6 GM/DL (3.2-4.5); CHLORIDE 105 MMOL/L (98-107); SODIUM 138 MMOL/L (135-145)
[2022-02-08 21:04] LABS: CALCIUM 9.7 MG/DL (8.5-10.1)
[2022-02-08 21:05] LABS: GLUCOSE 115 MG/DL (70-105)
[2022-02-08 21:06] LABS: TOTAL PROTEIN 7.6 GM/DL (6.4-8.2)
[2022-02-08 21:07] LABS: BILIRUBIN,TOTAL 0.3 MG/DL (0.1-1.0); CARBON DIOXIDE 20 MMOL/L (21-32)
[2022-02-08 21:09] LABS: ALKALINE PHOSPHATASE 73 U/L (40-136); CREATININE SERUM 0.85 MG/DL (0.60-1.30); GFR ESTIMATED 97
[2022-02-08 21:10] LABS: BUN/CREATININE RATIO 11
[2022-02-08 21:12] LABS: ALANINE AMINOTRANSFERASE 30 U/L (0-55); LIPASE 36 U/L (8-78)
[2022-02-08] MEDS ORDERED: NS 100 ML (IVPB) BAG IV ONE (21:15)
[2022-02-08] MEDS ORDERED: HOLD METFORMIN - RECEIVED CONTRAST 20 ML VIAL IV SCH (21:15)
[2022-02-08] MEDS ORDERED: IOHEXOL 350 MG/ML 100 ML (OMNIPAQUE 350) VIAL IV ONE (21:15)
--- NOTE | 2022-02-08 21:25 | Diagnostic Imaging Report ---
PROCEDURE: CT abdomen and pelvis with contrast, rule out appendicitis. TECHNIQUE: Multiple contiguous axial images were obtained through the abdomen and pelvis after the administration of intravenous contrast. All CT scans use one or more of the following dose optimizing techniques: automated exposure control, MA and/or KvP adjustment based on patient size and exam type or iterative reconstruction. INDICATION: Right lower quadrant abdominal pain. COMPARISON: CT of the abdomen and pelvis 11/21/2021. FINDINGS: Lung bases demonstrate no findings of pneumonia or edema. No pleural or pericardial effusion. The liver demonstrates no evidence of a focal intrahepatic and abnormality. The patient is status post cholecystectomy. No abnormal biliary dilatation. Hepatic and portal veins are patent. The pancreas appears normal without adjacent stranding or fluid. The spleen is normal in size. No adrenal mass. The kidneys demonstrate no findings of hydronephrosis or perinephric fat stranding. The stomach is distended with food products without evidence of gastric wall thickening. There are no findings of abnormal small bowel dilation. The appendix is well visualized and is normal. There is moderate stool within the colon. There is no colonic thickening or pericolonic fat stranding. There is uncomplicated sigmoid diverticulosis. The bladder is unremarkable. The uterus is normal. Left ovary normal. The right ovary demonstrates a low-density focus that may reflect a right ovarian cyst. There is no pelvic free fluid. There is no adenopathy. There is no free air. There is no abscess. The aorta is normal in caliber. There is no osseous abnormality. IMPRESSION: 1. No findings of bowel obstruction or appendicitis. The appendix is well visualized. 2. Uncomplicated diverticulosis without evidence of diverticulitis. 3. No pelvic free fluid. 4. Probable small right ovarian cyst. Dictated by: Dictated on workstation # [id number]
[2022-02-08 21:27] LABS: BILIRUBIN,URINE NEGATIVE (NEGATIVE); CLARITY,URINE CLEAR; COLOR,URINE YELLOW; GLUCOSE, URINE (UA) NEGATIVE (NEGATIVE); KETONES,URINE NEGATIVE (NEGATIVE); LEUKOCYTE ESTERASE ,URINE NEGATIVE (NEGATIVE); NITRITE,URINE NEGATIVE (NEGATIVE); PH,URINE 6.5 (5-9); PROTEIN,URINE NEGATIVE (NEGATIVE)
[2022-02-08 21:36] LABS: BACTERIA,URINE NEGATIVE /HPF; SQUAMOUS EPITHELIAL CELL,UR 0-2 /HPF; WBC,URINE 0-2 /HPF
[2022-02-08] MEDS ORDERED: KETOROLAC 30 MG/ML VIAL IVP ONE (22:15)
== END 2022-02-08 22:32 | disposition home or self-care (01) ==
LOC: EDUNIT# 20:28 → ER 20:29
DX: K57.90 Diverticulosis of intestine, part unspecified, without perforation or abscess without bleeding (principal); N83.201 Unspecified ovarian cyst, right side; R31.9 Hematuria, unspecified; D72.829 Elevated white blood cell count, unspecified; Z90.49 Acquired absence of other specified parts of digestive tract; Z32.02 Encounter for pregnancy test, result negative
CPT/HCPCS: 36415; 74177; 80053; 81000; 83690; 84703; 85025

== ENCOUNTER 2022-03-13 15:27 | Emergency (ER) | payer MEDICAID ==
[~2022-03-13] VITALS: Ht 165.1 cm; Wt 97.5 kg
[2022-03-13] MEDS ORDERED: RX-ALBUTEROL INHALER 8.5 GM HFA (PROAIR) IH STA (16:39)
--- NOTE | 2022-03-13 16:39 | ED EENT ---
History of Present Illness General Chief Complaint: Oral/Throat Problems Stated Complaint: SORE THROAT Nursing Triage Note: PT TO FT 2 WITH CC OF SORE THROAT SINCE 03/11/22. PT REPORTS SORE THROAT HAS GOTTEN WORSE TODAY AND IS HARD FOR HER TO SPEAK. DENIES FEVER, NAUSEA, VOMITING AND DIARRHEA. Source: patient Exam Limitations: no limitations History of Present Illness Date Seen by Provider: Mar 13, 2022 Time Seen by Provider: 16:26 Allergies and Home Medications Allergies Coded Allergies: paroxetine (Unverified Allergy, Unknown, HIVES, 07/25/21) hydrocodone (Verified Adverse Reaction, Mild, 07/21/17) Itching Patient Home Medication List Docusate Sodium (Docusate Sodium) 100 Mg Capsule, 100 MG PO BID PRN for CONSTIPATION-1ST LINE Prescribed by: PARISH LOZA on 05/16/19 0734 Ibuprofen (Ibu) 600 Mg Tablet, 600 MG PO Q6HR Prescribed by: PARISH LOZA on 05/16/19 0734 Ondansetron (Ondansetron Odt) 4 Mg Tab.rapdis, 4 MG SL Q4H PRN for NAUSEA/VOMITING Prescribed by: NI DIOP on 07/22/21 1548 Oxycodone HCl/Acetaminophen (Percocet 5-325 mg Tablet) 1 Each Tablet, 1-2 TAB PO Q6HR PRN for PAIN-MODERATE Prescribed by: PARISH LOZA on 05/16/19 0734 Vit W-Ca,Fe,FA(<1 mg) ( Vitamins) 1 Each Tablet, 1 EACH PO DAILY, (Reported) Entered as Reported by: CARLA LOCO on 02/07/19 1535 Past Rugdnpt-Oruoxn-Slnzwp Hx Patient Social History Tobacco Use?: No Use of E-Cig and/or Vaping dev: Yes E-Cig or Vaping type used: Nicotine Use of E-Cig and/or Vaping Angel: Current Everyday User Substance use?: No Alcohol Use?: No Pt feels they are or have been: No Immunizations Up To Date Tetanus Booster (TDap): Unknown PED Vaccines UTD: Yes First/Initial COVID19 Vaccinat: UNKNOWN DATE Second COVID19 Vaccination Mike: UNKNOWN DATE Third COVID19 Vaccination Date: UNKNOWN DATE Seasonal Allergies Seasonal Allergies: Yes Past Medical History Surgery/Hospitalization HX: rt wrist, t&a, 2 c sections, gallbladder, lt knee Surgeries: Yes (r wrist reconstruction, bmt x4, ) Section, Gallbladder, Tonsillectomy Respiratory: Yes (childhood asthma) Asthma Currently Using CPAP: No Currently Using BIPAP: No Cardiac: No Neurological: Yes Headaches /Migraines 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 Sexually Transmitted Disease: No HIV/AIDS: No Genitourinary: Yes UTI-Chronic Gastrointestinal: Yes Gall Bladder Disease Musculoskeletal: No Endocrine: No HEENT: Yes Chronic Ear Infection Cancer: No Psychosocial: Yes (post- depression) Anxiety Integumentary: No Blood Disorders: No Family Medical History Alcoholism Completed stroke 19 MOTHER Diabetes mellitus 19 FATHER Drug abuse 19 FATHER 19 MOTHER Hypertension 19 FATHER No Pertinent Family Hx Physical Exam Vital Signs Vital Signs - First Documented 03/13/22 15:49 Temp 37.0 Pulse 77 Resp 16 B/P (MAP) 174/95 (121) Pulse Ox 96 O2 Delivery Room Air Height, Weight, BMI Height: 5'5.00" Weight: 177lbs. 2.0oz. 80.469946fk; 35.00 BMI Method:Stated Progress/Results/Core Measures Results/Orders Lab Results Laboratory Tests Test 03/13/22 15:59 Range/Units Influenza Type A (RT-PCR) Not Detected Not Detecte Influenza Type B (RT-PCR) Not Detected Not Detecte SARS-CoV-2 RNA (RT-PCR) Detected H Not Detecte Group A Streptococcus Screen NEGATIVE NEGATIVE My Orders Orders - TASHA ESCAMILLA APRN Rapid Strep A Screen (03/13/22 15:56) Covid 19 Inhouse Test (03/13/22 15:58) Influenza A And B By Pcr (03/13/22 15:58) Vital Signs/I&O 03/13/22 15:49 Temp 37.0 Pulse 77 Resp 16 B/P (MAP) 174/95 (121) Pulse Ox 96 O2 Delivery Room Air Blood Pressure Mean: 121 Departure Impression Primary Impression: COVID-19 Disposition: 01 HOME, SELF-CARE Condition: Stable Departure-Patient Inst. Decision time for Depature: 16:38 Referrals: [facility] (PCP/Family) Primary Care Physician Patient Instructions: COVID-19 ED Add. Discharge Instructions: Plan: 1. Discharge home. May use your albuterol inhaler 2 puffs every 4 hours as needed for shortness of breath or wheezing. 2. Stay home for 5 days and then mask when in public for additional 5 days. If you are still running fever, you will need to stay home until you are fever free. 3. Wash your hands frequently, disinfect surfaces at home. Try to isolate yourself from others in the house as much as you are able. 4. Clean areas that may have blood, stool, or body fluids on them. 5. Cover your mouth and nose when you cough or sneeze, throw away tissues, and wash hands immediately. 6. Return to ER if you develop: trouble breathing, persistent pain or pressure in the chest, new confusion, inability to wake or stay awake, pale, prescott, blue-colored skin, lips, or nail beds depending on skin tone. 7. Return to ER for any other new, concerning, or worsening symptoms. All discharge instructions reviewed with patient and/or family. Voiced understanding. Scripts Methylprednisolone (Methylprednisolone Dose Pack) 4 Mg Tab.ds.pk 4 MG PO UD for 6 Days, #21 PKG 0 Refills PER DOSE PACK INSTRUCTIONS Prov: TASHA ESCAMILLA APRN 03/13/22 TASHA ESCAMILLA VOUCHER EXAMINER Mar 13, 2022 16:39
[2022-03-13] MEDS ORDERED: METH4TAB10 PO (16:41)
[2022-03-13 16:54] VITALS: BP 174/95
== END 2022-03-13 16:54 | disposition home or self-care (01) ==
LOC: EDUNIT# 15:27 → ER 15:29
DX: U07.1 COVID-19 (principal); F17.290 Nicotine dependence, other tobacco product, uncomplicated
CPT/HCPCS: 87430; 87636; 99283

== ENCOUNTER 2022-03-17 20:21 | Emergency (ER) | payer MEDICAID ==
[~2022-03-17] VITALS: Ht 165 cm; Wt 81.0 kg
[~2022-03-17 20:21] MED LIST changes: +METH4TAB10 PO
[2022-03-17] MEDS ORDERED: ALBU8TAB (20:40)
[2022-03-17] MEDS ORDERED: MOLN200C (20:40)
[2022-03-17] MEDS ORDERED: BENZ-36 (20:40)
--- NOTE | 2022-03-17 20:53 | ED General ---
General Chief Complaint: COVID19 Suspect/Confirmed Stated Complaint: COVID +,CP Nursing Triage Note: covid + 03/13/22, c/o increased soa today, intermittant chest tightness x2hrs History of Present Illness Date Seen by Provider: Mar 17, 2022 Time Seen by Provider: 20:50 Initial Comments 26-year-old female with PMH of asthma, who had a positive COVID test on March 12, is here today with concerns of having mild shortness of breath for a few minutes in the evening. In the ER patient states she thinks she has a little bit of chest tightness and feels a little breathless. Patient used her inhaler once at home today. Patient is also on a steroid taper. Denies fever, abdominal pain, diarrhea, nausea and vomiting, palpitations. Allergies and Home Medications Allergies Coded Allergies: paroxetine (Unverified Allergy, Unknown, HIVES, 07/25/21) hydrocodone (Verified Adverse Reaction, Mild, 07/21/17) Itching Patient Home Medication List Home Medication List Reviewed: Yes Albuterol Sulfate (Albuterol Sulfate) 8 Mg Tab.er.12h, (Reported) Entered as Reported by: CARMENZA HELLER on 03/17/222039 Last Action: New Order Benzonatate (Benzonatate) 100 Mg Capsule, (Reported) Entered as Reported by: CARMENZA HELLER on 03/17/222039 Last Action: New Order Docusate Sodium (Docusate Sodium) 100 Mg Capsule, 100 MG PO BID PRN for CONSTIPATION-1ST LINE Prescribed by: PARISH LOZA on 05/16/19 0734 Ibuprofen (Ibu) 600 Mg Tablet, 600 MG PO Q6HR Prescribed by: PARISH LOZA on 05/16/19 0734 Methylprednisolone (Methylprednisolone Dose Pack) 4 Mg Tab.ds.pk, 4 MG PO UD Prescribed by: TASHA ESCAMILLA on 03/13/22 1641 Molnupiravir (Molnupiravir (Eua)) 200 Mg Capsule, (Reported) Entered as Reported by: CARMENZA HELLER on 03/17/222039 Last Action: New Order Ondansetron (Ondansetron Odt) 4 Mg Tab.rapdis, 4 MG SL Q4H PRN for NAUSEA/VOMITING Prescribed by: NI DIOP on 07/22/21 1548 Oxycodone HCl/Acetaminophen (Percocet 5-325 mg Tablet) 1 Each Tablet, 1-2 TAB PO Q6HR PRN for PAIN-MODERATE Prescribed by: PARISH LOZA on 05/16/19 0734 Vit W-Ca,Fe,FA(<1 mg) ( Vitamins) 1 Each Tablet, 1 EACH PO DAILY, (Reported) Entered as Reported by: CARLA LOCO on 02/07/19 1535 Review of Systems Review of Systems Constitutional: no symptoms reported EENTM: no symptoms reported Respiratory: short of breath Cardiovascular: no symptoms reported Gastrointestinal: no symptoms reported Genitourinary: no symptoms reported Musculoskeletal: no symptoms reported Skin: no symptoms reported Psychiatric/Neurological: No Symptoms Reported Hematologic/Lymphatic: No Symptoms Reported Immunological/Allergic: no symptoms reported Past Meqvpma-Ihtabo-Bbsacj Hx Patient Social History Tobacco Use?: Yes Substance use?: No Alcohol Use?: No Pt feels they are or have been: No Immunizations Up To Date Tetanus Booster (TDap): Unknown PED Vaccines UTD: Yes First/Initial COVID19 Vaccinat: UNKNOWN DATE Second COVID19 Vaccination Mike: UNKNOWN DATE Third COVID19 Vaccination Date: UNKNOWN DATE Seasonal Allergies Seasonal Allergies: Yes Past Medical History Surgery/Hospitalization HX: rt wrist, t&a, 2 c sections, gallbladder, lt knee Surgeries: Yes (r wrist reconstruction, bmt x4, ) Section, Gallbladder, Tonsillectomy Respiratory: Yes (childhood asthma) Asthma Currently Using CPAP: No Currently Using BIPAP: No Cardiac: No Neurological: Yes Headaches /Migraines 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 Sexually Transmitted Disease: No HIV/AIDS: No Genitourinary: Yes UTI-Chronic Gastrointestinal: Yes Gall Bladder Disease Musculoskeletal: No Endocrine: No HEENT: Yes Chronic Ear Infection Cancer: No Psychosocial: Yes (post- depression) Anxiety Integumentary: No Blood Disorders: No Family Medical History Alcoholism Completed stroke 19 MOTHER Diabetes mellitus 19 FATHER Drug abuse 19 FATHER 19 MOTHER Hypertension 19 FATHER No Pertinent Family Hx Physical Exam Vital Signs Vital Signs - First Documented 03/17/22 20:37 Temp 36.5 Pulse 87 Resp 16 B/P (MAP) 127/86 (100) O2 Delivery Room Air Capillary Refill : Less Than 3 Seconds Height, Weight, BMI Height: 5'5.00" Weight: 177lbs. 2.0oz. 80.342045co; 29.00 BMI Method:Stated General Appearance: No Apparent Distress, WD/WN HEENT: PERRL/EOMI, Normal ENT Inspection Neck: Full Range of Motion, Normal Inspection, Non Tender, Supple Respiratory: Chest Non Tender, Lungs Clear, Normal Breath Sounds Cardiovascular: Regular Rate, Rhythm, No Edema, Other (point tenderness over the 5th 6th costochondral junction) Gastrointestinal: Normal Bowel Sounds, Non Tender, Soft Neurologic/Psychiatric: Alert, Oriented x3, No Motor/Sensory Deficits Skin: Normal Color Progress/Results/Core Measures Suspected Sepsis SIRS Temperature: Pulse: 87 Respiratory Rate: 16 Laboratory Tests 03/17/22 21:15: White Blood Count 17.0H Blood Pressure 127 /86 Mean: 100 Laboratory Tests 03/17/22 21:15: Creatinine 1.04, Platelet Count 381, Total Bilirubin 0.3 Results/Orders Lab Results Laboratory Tests Test 03/17/22 21:15 Range/Units White Blood Count 17.0 H 4.3-11.0 10^3/uL Red Blood Count 4.89 3.80-5.11 10^6/uL Hemoglobin 13.8 11.5-16.0 g/dL Hematocrit 42 35-52 % Mean Corpuscular Volume 86 80-99 fL Mean Corpuscular Hemoglobin 28 25-34 pg Mean Corpuscular Hemoglobin Concent 33 32-36 g/dL Red Cell Distribution Width 13.1 10.0-14.5 % Platelet Count 381 130-400 10^3/uL Mean Platelet Volume 8.6 L 9.0-12.2 fL Immature Granulocyte % (Auto) 1 % Neutrophils (%) (Auto) 62 42-75 % Lymphocytes (%) (Auto) 29 12-44 % Monocytes (%) (Auto) 7 0-12 % Eosinophils (%) (Auto) 0 0-10 % Basophils (%) (Auto) 1 0-10 % Neutrophils # (Auto) 10.5 H 1.8-7.8 10^3/uL Lymphocytes # (Auto) 5.0 H 1.0-4.0 10^3/uL Monocytes # (Auto) 1.1 H 0.0-1.0 10^3/uL Eosinophils # (Auto) 0.0 0.0-0.3 10^3/uL Basophils # (Auto) 0.1 0.0-0.1 10^3/uL Immature Granulocyte # (Auto) 0.2 H 0.0-0.1 10^3/uL Neutrophils % (Manual) 66 % Lymphocytes % (Manual) 25 % Monocytes % (Manual) 8 % Eosinophils % (Manual) 1 % Blood Morphology Comment NORMAL Sodium Level 146 H 135-145 MMOL/L Potassium Level 3.7 3.6-5.0 MMOL/L Chloride Level 109 H 98-107 MMOL/L Carbon Dioxide Level 25 21-32 MMOL/L Anion Gap 12 5-14 MMOL/L Blood Urea Nitrogen 16 7-18 MG/DL Creatinine 1.04 0.60-1.30 MG/DL Estimat Glomerular Filtration Rate 76 BUN/Creatinine Ratio 15 Glucose Level 92 70-105 MG/DL Calcium Level 9.3 8.5-10.1 MG/DL Corrected Calcium 9.1 8.5-10.1 MG/DL Total Bilirubin 0.3 0.1-1.0 MG/DL Aspartate Amino Transf (AST/SGOT) 15 5-34 U/L Alanine Aminotransferase (ALT/SGPT) 21 0-55 U/L Alkaline Phosphatase 66 40-136 U/L Total Protein 7.4 6.4-8.2 GM/DL Albumin 4.2 3.2-4.5 GM/DL My Orders Orders - REBECCA LAGUERRE MD Chest 1 View, Ap/Pa Only (03/17/22 20:55) Cbc With Automated Diff (03/17/22 21:08) Comprehensive Metabolic Panel (03/17/22 21:08) Albuterol/Ipratropium Inhaler (Combivent (03/17/22 21:20) Rt Request For Service (03/17/22 21:20) Manual Differential (03/17/22 21:15) Vital Signs/I&O 03/17/22 20:37 Temp 36.5 Pulse 87 Resp 16 B/P (MAP) 127/86 (100) O2 Delivery Room Air Capillary Refill : Less Than 3 Seconds Blood Pressure Mean: 100 Progress Note : Progress Note 1. COVID POSITIVE WITH MILD ASTHMA FLARE: ACUTE COSTOCHONDRITIS - CXR: Unremarkable -Labs unremarkable except WBC is elevated to 17 with a left shift -Azithromycin prescription with first tab in ER today. - Take Ibuprofen Q6H prn chest wall pain -Continue albuterol inhaler as needed SOB, and continue prednisone as prescribed by PCP. -Follow-up with PCP in 7 days -The patient was seen in the ED, and treated appropriately to presentation at a specific point in time. Patient is informed that there is a possibility that disease and illness can evolve and change in acuity rapidly or slowly after patient is discharged from the ER. Precautionary advice given to the patient for immediate return to ER if symptoms worsen or do not resolve, and to seek emergency care sooner rather than later. Pt also advised on the importance of PCP follow up and compliance with management and follow up plan with PCP and/or specialist, as this is part of the management plan. Pt verbally expressed und erstanding. Diagnostic Imaging Diagonstic Imaging: Xray Plain Films/CT/US/NM/MRI: chest Comments [facility], [place] NAME: WAYLON PLAZA MED REC#: [id number] PT STATUS: REG ER : 1995 PHYSICIAN: REBECCA LAGUERRE MD ADMIT DATE: 03/17/22/ER Signed Date of Exam:03/17/22 CHEST 1 VIEW, AP/PA ONLY INDICATION: Shortness of breath. EXAMINATION: Frontal chest was obtained at 9:03 p.m. COMPARISON: 07/22/2021. Heart and mediastinal silhouette are normal in appearance. The lungs are clear. There is no pneumothorax or pleural fluid. IMPRESSION: Negative chest. Dictated by: Dictated on workstation # [id number] Dict: 03/17/222121 Trans: 03/17/222139 [facility] [id number] Interpreted by: DAVID SOW MD Electronically signed by: DAVID SOW MD 03/17/222139 Departure Impression Primary Impression: SARS-CoV-2 antibody positive Additional Impressions: Asthma flare Qualified Codes: J45.21 - Mild intermittent asthma with (acute) exacerbation Acute costochondritis Disposition: HOME, SELF-CARE Condition: Improved Departure-Patient Inst. Referrals: [facility] (PCP/Family) Primary Care Physician Patient Instructions: COVID-19 Home Care/Discharge, Asthma, Adult (DC), Avoiding Asthma Triggers, Inhalers, Costochondritis Add. Discharge Instructions: -Azithromycin prescription with first tab in ER today. -Continue albuterol inhaler as needed SOB, and continue prednisone as prescribed by PCP. -Follow-up with PCP in 7 days - Take Ibuprofen Q6H prn chest wall pain All discharge instructions reviewed with patient and/or family. Voiced understanding. Scripts Azithromycin (Azithromycin) 500 Mg Tablet 500 MG PO DAILY for 2 Days, #2 TAB Prov: REBECCA LAGUERRE MD 03/17/22 Work/School Note: Work Release Form Date Seen in the Emergency Department: Mar 17, 2022 Return to Work: Mar 24, 2022 REBECCA LAGUERRE MD Mar 17, 2022 20:53
[2022-03-17] MEDS ORDERED: ALBUTEROL/IPRATROP (COMBIVENT RESPIMAT) 4 GM INHALER IH STA (21:20)
[2022-03-17 21:27] LABS: BASOPHILS # (AUTO) 0.1 10^3/uL (0.0-0.1); BASOPHILS % (AUTO) 1 % (0-10); EOSINOPHILS % (AUTO) 0 % (0-10); HEMATOCRIT 42 % (35-52); HEMOGLOBIN 13.8 g/dL (11.5-16.0); LYMPHOCYTES % (AUTO) 29 % (12-44); MEAN CORPUSCULAR HEMOGLOBIN 28 pg (25-34); MEAN CORPUSCULAR HGB CONC 33 g/dL (32-36); MEAN CORPUSCULAR VOLUME 86 fL (80-99); MEAN PLATELET VOLUME 8.6 fL (9.0-12.2); MONOCYTES # (AUTO) 1.1 10^3/uL (0.0-1.0); MONOCYTES % (AUTO) 7 % (0-12); NEUTROPHILS # (AUTO) 10.5 10^3/uL (1.8-7.8); NEUTROPHILS % (AUTO) 62 % (42-75); PLATELET COUNT 381 10^3/uL (130-400)
--- NOTE | 2022-03-17 21:30 | Diagnostic Imaging Report ---
INDICATION: Shortness of breath. EXAMINATION: Frontal chest was obtained at 9:03 p.m. COMPARISON: 07/22/2021. Heart and mediastinal silhouette are normal in appearance. The lungs are clear. There is no pneumothorax or pleural fluid. IMPRESSION: Negative chest. Dictated by: Dictated on workstation # [id number]
[2022-03-17 21:41] LABS: ALBUMIN 4.2 GM/DL (3.2-4.5); BILIRUBIN,TOTAL 0.3 MG/DL (0.1-1.0); CALCIUM 9.3 MG/DL (8.5-10.1); CREATININE SERUM 1.04 MG/DL (0.60-1.30); POTASSIUM 3.7 MMOL/L (3.6-5.0); TOTAL PROTEIN 7.4 GM/DL (6.4-8.2)
[2022-03-17 22:15] LABS: EOSINOPHILS % (MANUAL) 1 %; LYMPHOCYTES % (MANUAL) 25 %; MONOCYTES % (MANUAL) 8 %; NEUTROPHILS % (MANUAL) 66 %; RBC MORPH NORMAL
[2022-03-17] MEDS ORDERED: FAMOTIDINE 20MG/2ML IV (PEPCID) IVP ONE (22:45)
[2022-03-17] MEDS ORDERED: AZIT500T9 PO (22:45)
[2022-03-17] MEDS ORDERED: AZITHROMYCIN 250 MG TAB (ZITHROMAX) PO ONE (22:45)
[2022-03-17] MEDS ORDERED: FAMOTIDINE 20 MG (PEPCID) TABLET PO ONE ×2 (23:00)
[2022-03-17 23:03] VITALS: BP 130/90
== END 2022-03-17 23:03 | disposition home or self-care (01) ==
LOC: EDUNIT# 20:21 → ER 20:28
DX: U07.1 COVID-19 (principal); J45.901 Unspecified asthma with (acute) exacerbation; M94.0 Chondrocostal junction syndrome [Tietze]; Z73.0 Burn-out; Z28.310 Unvaccinated for COVID-19
CPT/HCPCS: 36415; 71045; 80053; 85007; 85027

== ENCOUNTER 2022-06-20 17:56 | Emergency (ER) | payer MEDICAID ==
[~2022-06-20] VITALS: Ht 165 cm; Wt 97.5 kg
[~2022-06-20 17:56] MED LIST changes: +ALBU8TAB; +AZIT500T9 PO; +BENZ-36; +MOLN200C
[2022-06-20 18:59] LABS: BASOPHILS # (AUTO) 0.1 10^3/uL (0.0-0.1); BASOPHILS % (AUTO) 0 % (0-10); EOSINOPHILS # (AUTO) 0.1 10^3/uL (0.0-0.3); EOSINOPHILS % (AUTO) 0 % (0-10); HEMATOCRIT 47 % (35-52); HEMOGLOBIN 15.6 g/dL (11.5-16.0); LYMPHOCYTES # (AUTO) 1.5 10^3/uL (1.0-4.0); LYMPHOCYTES % (AUTO) 9 % (12-44); MEAN CORPUSCULAR HEMOGLOBIN 28 pg (25-34); MEAN CORPUSCULAR HGB CONC 33 g/dL (32-36); MEAN CORPUSCULAR VOLUME 85 fL (80-99); MEAN PLATELET VOLUME 8.3 fL (9.0-12.2); MONOCYTES # (AUTO) 0.8 10^3/uL (0.0-1.0); MONOCYTES % (AUTO) 5 % (0-12); NEUTROPHILS # (AUTO) 14.5 10^3/uL (1.8-7.8); NEUTROPHILS % (AUTO) 86 % (42-75); PLATELET COUNT 357 10^3/uL (130-400); WHITE BLOOD COUNT 16.9 10^3/uL (4.3-11.0)
[2022-06-20] MEDS ORDERED: ONDANSETRON 4 MG/2 ML (SDV) Z0FRAN IVP ONE (19:00)
[2022-06-20] MEDS ORDERED: PANTOPRAZOLE 40 MG (PROTONIX) VIAL IV ONE (19:00)
[2022-06-20] MEDS ORDERED: LACTATED RINGERS 1,000 ML IV ONE (19:00)
[2022-06-20 19:16] LABS: ALBUMIN 5.1 GM/DL (3.2-4.5); CHLORIDE 104 MMOL/L (98-107); POTASSIUM 4.4 MMOL/L (3.6-5.0); SODIUM 141 MMOL/L (135-145)
[2022-06-20 19:17] LABS: AMYLASE 53 U/L (25-125)
[2022-06-20 19:19] LABS: GLUCOSE 97 MG/DL (70-105); TOTAL PROTEIN 8.1 GM/DL (6.4-8.2)
[2022-06-20 19:20] LABS: CARBON DIOXIDE 25 MMOL/L (21-32)
[2022-06-20 19:21] LABS: BILIRUBIN,TOTAL 0.7 MG/DL (0.1-1.0)
[2022-06-20 19:22] LABS: ALKALINE PHOSPHATASE 67 U/L (40-136); CREATININE SERUM 0.95 MG/DL (0.60-1.30); GFR ESTIMATED 84
--- NOTE | 2022-06-20 19:22 | ED GI ---
General Chief Complaint: Abdominal/GI Problems Stated Complaint: ABDOMINAL PAIN, VOMITING Nursing Triage Note: PT STATES UPPER ABD PAIN THAT STARTED ABOUT 0815 THIS MORNING, NVD Source of Information: Patient History of Present Illness Date Seen by Provider: Jun 20, 2022 Time Seen by Provider: 18:45 Initial Comments PT ARRIVES VIA POV FROM HOME STATES SHE BEGAN GETTING SICK AROUND 0800 THIS AM--WAS FINE WHEN SHE WENT TO BED LAST NIGHT C/O NAUSEA/VOMITING/DIARRHEA AND EPIGASTRIC ABDOMINAL PAIN . HAS VOMITED APPROXIMATELY 10 TIMES TODAY--CAN'T KEEP ANY LIQUIDS DOWN. NO HEMATEMESIS OR COFFEE-GROUND EMESIS. HAS HAD DIARRHEA APPROXIMATELY 7 TIMES DAY--NO BLACK/BLOODY/TARRY STOOLS NO FEVER TODAY HAS HAD DECREASED URINE OUTPUT--ONLY VOIDED X 2 SINCE 0630 THIS AM ADDITIONALLY, SHE HAS BEEN HAVING COUGH AND CONGESTION X 4 DAYS--WAS SEEN AT [facility] WALK IN [facility]IC AND DX WITH BRONCHITIS AND STARTED ON UNKNOWN ANTIBIOTICS. SHE STATES COVID AND FLU TESTS WERE NEGATIVE. NO CHEST PAIN HAS SHORTNESS OF BREATH ONLY WHEN SHE IS COUGHING HARD HAS AN INHALER AT HOME, AND HAS BEEN USING IT WHEN HER COUGH IS BAD. 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 SHE HAS NOT STARTED HER PERIOD YET. PT HAS HAD PRIOR CHOLECYSTECTOMY AND 2 C-SECTIONS NO OTHER ABDOMINAL SURGERIES OR GI PROBLEMS PCP: [facility]. LUIS A CARTAGENA --WAS SEEING LUIS A DOSHI Allergies and Home Medications Allergies Coded Allergies: paroxetine (Unverified Allergy, Unknown, HIVES, 07/25/21) hydrocodone (Verified Adverse Reaction, Mild, 07/21/17) Itching Patient Home Medication List Home Medication List Reviewed: Yes Albuterol Sulfate (Albuterol Sulfate) 8 Mg Tab.er.12h, (Reported) Entered as Reported by: CARMENZA HELLER on 03/17/222039 Azithromycin (Azithromycin) 500 Mg Tablet, 500 MG PO DAILY Prescribed by: REBECCA LAGUERRE MD on 03/17/222244 Benzonatate (Benzonatate) 100 Mg Capsule, (Reported) Entered as Reported by: CARMENZA HELLER on 03/17/222039 Docusate Sodium (Docusate Sodium) 100 Mg Capsule, 100 MG PO BID PRN for CONSTIPATION-1ST LINE Prescribed by: PARISH LOZA on 05/16/19733 Doxycycline Hyclate (Doxycycline Hyclate) 100 Mg Tablet, 100 MG PO BID Prescribed by: ANDREY KAY on 06/20/222049 Ibuprofen (Ibu) 600 Mg Tablet, 600 MG PO Q6HR Prescribed by: PARISH LOZA on 05/16/19733 Methylprednisolone (Methylprednisolone Dose Pack) 4 Mg Tab.ds.pk, 4 MG PO UD Prescribed by: TASHA ESCAMILLA on 03/13/22 164 Molnupiravir (Molnupiravir (Eua)) 200 Mg Capsule, (Reported) Entered as Reported by: CARMENZA HELLER on 03/17/222039 Ondansetron (Ondansetron Odt) 4 Mg Tab.rapdis, 4 MG SL Q4H PRN for NAUSEA/VOMITING Prescribed by: NI DIOP on 07/22/21 154 Ondansetron (Ondansetron Odt) 8 Mg Tab.rapdis, 8 MG PO Q6H Prescribed by: ANDREY KAY on 06/20/222049 Oxycodone HCl/Acetaminophen (Percocet 5-325 mg Tablet) 1 Each Tablet, 1-2 TAB PO Q6HR PRN for PAIN-MODERATE Prescribed by: PARISH LOZA on 05/16/19733 Pantoprazole Sodium (Protonix) 40 Mg Tablet.dr, 40 MG PO DAILY Prescribed by: ANDREY KAY on 06/20/222049 Vit W-Ca,Fe,FA(<1 mg) ( Vitamins) 1 Each Tablet, 1 EACH PO DAILY, (Reported) Entered as Reported by: CARLA LOCO on 02/07/19 1535 Review of Systems Review of Systems Constitutional: see HPI Respiratory: See HPI, Cough Cardiovascular: No Symptoms Reported Gastrointestinal: See HPI, Abdominal Pain, Diarrhea, Nausea, Vomiting Genitourinary: See HPI Musculoskeletal: no symptoms reported Skin: no symptoms reported Psychiatric/Neurological: No Symptoms Reported Endocrine: No Symptoms Reported Hematologic/Lymphatic: No Symptoms Reported Past Mcwurmb-Dvzshc-Jdzbdy Hx Patient Social History Tobacco Use?: Yes Smoking Status: Former Smoker Use of E-Cig and/or Vaping dev: Yes E-Cig or Vaping type used: Nicotine Substance use?: No Alcohol Use?: Yes Alcohol type: Beer, Hard Liquor, Wine Alcohol Frequency: Rarely Immunizations Up To Date Tetanus Booster (TDap): Unknown PED Vaccines UTD: Yes First/Initial COVID19 Vaccinat: UNKNOWN DATE Second COVID19 Vaccination Mike: YES Third COVID19 Vaccination Date: UNKNOWN DATE Seasonal Allergies Seasonal Allergies: Yes Past Medical History Surgery/Hospitalization HX: rt wrist, t&a, 2 c sections, gallbladder, lt knee Surgeries: Yes (r wrist reconstruction, bmt x4, ) Adenoidectomy, Section, Gallbladder, Orthopedic, Tonsillectomy Respiratory: Yes (childhood asthma) Asthma Currently Using CPAP: No Currently Using BIPAP: No Cardiac: No Neurological: Yes Headaches /Migraines : No 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 Disorders: No Sexually Transmitted Disease: No HIV/AIDS: No Genitourinary: Yes UTI-Chronic Gastrointestinal: Yes Gall Bladder Disease Musculoskeletal: Yes (ORTHOPEDIC SURGERIES--R WRIST, L KNEE) Endocrine: No HEENT: Yes (S/P T&A) Chronic Ear Infection, Tonsilitis Cancer: No Psychosocial: Yes (post- depression) Anxiety Integumentary: No Blood Disorders: No Family Medical History Alcoholism Completed stroke 19 MOTHER Diabetes mellitus 19 FATHER Drug abuse 19 FATHER 19 MOTHER Hypertension 19 FATHER No Pertinent Family Hx Physical Exam Vital Signs Vital Signs - First Documented 06/20/22 18:42 Temp 36.7 Pulse 122 Resp 20 B/P (MAP) 117/85 (96) Pulse Ox 99 O2 Delivery Room Air Capillary Refill : Less Than 3 Seconds Height/Weight/BMI Height: 5'5.00" Weight: 177lbs. 2.0oz. 80.930507uf; 35.00 BMI Method:Stated General Appearance: WD/WN, no apparent distress HEENT: PERRL/EOMI; No scleral icterus (R), No scleral icterus (L) Neck: normal inspection Respiratory: normal breath sounds, no respiratory distress, no accessory muscle use Cardiovascular: no edema, no JVD, no murmur, tachycardia Gastrointestinal: normal bowel sounds, soft, no organomegaly, no pulsatile mass; No distended, No guarding, No rebound; tenderness (EPIGASTRIC ); No hernia, No mass Extremities: normal inspection, normal capillary refill Back: normal inspection, no CVA tenderness Neurologic/Psychiatric: press tender II-XII nml as tested, no motor/sensory deficits, alert, normal mood/affect, oriented x 3 Skin: normal color, warm/dry Focused Exam Sepsis Stage: Ruled Out Reason for ruling out sepsis: DOES NOT MEET CRITERIA Possible Source: GI Tract/Intra-Abdominal Lactate Level 06/20/22 19:23: Lactic Acid Level 1.46 Time of Focused Exam: 20:00 Respiratory: Normal Breath Sounds, No Accessory Muscle Use, No Respiratory Distress Cardiovascular: Regular Rate, Rhythm, No Murmur Skin: normal color, warm/dry Lactic Acid Level Laboratory Tests Test 06/20/22 19:23 Lactic Acid Level 1.46 MMOL/L (0.50-2.00) Within 3hrs of presentation: Admin fluids, Blood cultures prior to ABX's, Focus exam, Lactate level, Other (NO ANTIBIOTICS GIVEN, THERE IS NO INDICATION AT THIS TIME. ) Progress/Results/Core Measures Results/Orders Lab Results Laboratory Tests Test 06/20/22 18:52 06/20/22 19:23 06/20/22 19:29 Range/Units White Blood Count 16.9 H 4.3-11.0 10^3/uL Red Blood Count 5.50 H 3.80-5.11 10^6/uL Hemoglobin 15.6 11.5-16.0 g/dL Hematocrit 47 35-52 % Mean Corpuscular Volume 85 80-99 fL Mean Corpuscular Hemoglobin 28 25-34 pg Mean Corpuscular Hemoglobin Concent 33 32-36 g/dL Red Cell Distribution Width 12.2 10.0-14.5 % Platelet Count 357 130-400 10^3/uL Mean Platelet Volume 8.3 L 9.0-12.2 fL Immature Granulocyte % (Auto) 0 % Neutrophils (%) (Auto) 86 H 42-75 % Lymphocytes (%) (Auto) 9 L 12-44 % Monocytes (%) (Auto) 5 0-12 % Eosinophils (%) (Auto) 0 0-10 % Basophils (%) (Auto) 0 0-10 % Neutrophils # (Auto) 14.5 H 1.8-7.8 10^3/uL Lymphocytes # (Auto) 1.5 1.0-4.0 10^3/uL Monocytes # (Auto) 0.8 0.0-1.0 10^3/uL Eosinophils # (Auto) 0.1 0.0-0.3 10^3/uL Basophils # (Auto) 0.1 0.0-0.1 10^3/uL Immature Granulocyte # (Auto) 0.1 0.0-0.1 10^3/uL Neutrophils % (Manual) 86 % Lymphocytes % (Manual) 3 % Monocytes % (Manual) 10 % Eosinophils % (Manual) 1 % Blood Morphology Comment NORMAL Sodium Level 141 135-145 MMOL/L Potassium Level 4.4 3.6-5.0 MMOL/L Chloride Level 104 98-107 MMOL/L Carbon Dioxide Level 25 21-32 MMOL/L Anion Gap 12 5-14 MMOL/L Blood Urea Nitrogen 12 7-18 MG/DL Creatinine 0.95 0.60-1.30 MG/DL Estimat Glomerular Filtration Rate 84 BUN/Creatinine Ratio 13 Glucose Level 97 70-105 MG/DL Calcium Level 10.0 8.5-10.1 MG/DL Corrected Calcium 8.5-10.1 MG/DL Total Bilirubin 0.7 0.1-1.0 MG/DL Aspartate Amino Transf (AST/SGOT) 22 5-34 U/L Alanine Aminotransferase (ALT/SGPT) 41 0-55 U/L Alkaline Phosphatase 67 40-136 U/L Total Protein 8.1 6.4-8.2 GM/DL Albumin 5.1 H 3.2-4.5 GM/DL Amylase Level 53 25-125 U/L Lipase 13 8-78 U/L Procalcitonin 0.07 <0.10 NG/ML Serum Test, Qualitative NEGATIVE NEGATIVE Influenza Type A (RT-PCR) Not Detected Not Detecte Influenza Type B (RT-PCR) Not Detected Not Detecte SARS-CoV-2 RNA (RT-PCR) Not Detected Not Detecte Lactic Acid Level 1.46 0.50-2.00 MMOL/L Urine Color YELLOW Urine Clarity CLEAR Urine pH 5.5 5-9 Urine Specific Ware >=1.030 1.016-1.022 Urine Protein TRACE H NEGATIVE Urine Glucose (UA) NEGATIVE NEGATIVE Urine Ketones NEGATIVE NEGATIVE Urine Nitrite NEGATIVE NEGATIVE Urine Bilirubin NEGATIVE NEGATIVE Urine Urobilinogen 0.2 < = 1.0 MG/DL Urine Leukocyte Esterase NEGATIVE NEGATIVE Urine RBC (Auto) 2+ H NEGATIVE Urine RBC NONE /HPF Urine WBC 5-10 H /HPF Urine Squamous Epithelial Cells 5-10 /HPF Urine Renal Epithelial Cells NONE /HPF Urine Crystals NONE /LPF Urine Bacteria NEGATIVE /HPF Urine Casts NONE /LPF Urine Mucus LARGE H /LPF Urine Culture Indicated CULTURE PENDING My Orders Orders - ANDREY KAY DO Ed Iv/Invasive Line Start (06/20/22 18:46) Urine Bedside (06/20/22 18:46) Monitor-Rhythm Ecg Trace Only (06/20/22 18:46) Amylase (06/20/22 18:46) Cbc With Automated Diff (06/20/22 18:46) Comprehensive Metabolic Panel (06/20/22 18:46) Lipase (06/20/22 18:46) Ua Culture If Indicated (06/20/22 18:46) Covid 19 Inhouse Test (06/20/22 18:46) Influenza A And B By Pcr (06/20/22 18:46) Isolation Central Supply Req (06/20/22 18:46) Hcg,Qualitative Serum (06/20/22 18:56) Ed Iv/Invasive Line Start (06/20/22 18:56) Lactated Ringers (Lr 1000 Ml Iv Solution (06/20/22 19:00) Ondansetron Injection (Zofran Injectio (06/20/22 19:00) Pantoprazole Injection (Protonix Injecti (06/20/22 19:00) Manual Differential (06/20/22 18:52) Lactic Acid Analyzer (06/20/22 19:08) Procalcitonin (Pct) (06/20/22 19:08) Blood Culture (06/20/22 19:08) Urine Culture (06/20/22 19:08) Chest 1 View, Ap/Pa Only (06/20/22 19:08) Ed Iv/Invasive Line Start (06/20/22 19:08) Vital Signs Adult Sepsis Patie Q15M (06/20/22 19:08) O2 (06/20/22 19:08) Remove Rings In Anticipation O (06/20/22 19:08) Ct Chest/Abdomen/Pelvis W (06/20/22 19:34) Iohexol Injection (Omnipaque 350 Mg/Ml 1 (06/20/22 20:30) Received Contrast (Hold Metformin- Contr (06/20/22 20:30) Ns (Ivpb) (Sodium Chloride 0.9% Ivpb Bag (06/20/22 20:30) Medications Given in ED Current Medications Medications Dose Ordered Sig/Param Route Start Time Stop Time Status Last Admin Dose Admin Lactated Ringer's 1,000 ml @ 0 mls/hr Q0M ONCE IV 06/20/22 19:00 06/20/22 19:01 DC 06/20/22 19:03 999 MLS/HR Ondansetron HCl 8 mg ONCE ONCE IVP 06/20/22 19:00 06/20/22 19:01 DC 06/20/22 19:03 8 MG Pantoprazole 40 mg ONCE ONCE IV 06/20/22 19:00 06/20/22 19:01 DC 06/20/22 19:03 40 MG Vital Signs/I&O 06/20/22 06/20/22 18:42 20:52 Temp 36.7 Pulse 122 78 Resp 20 16 B/P (MAP) 117/85 (96) 124/85 Pulse Ox 99 99 O2 Delivery Room Air Room Air Blood Pressure Mean: 96 Progress Progress Note : Progress Note SEPSIS PROTOCOL INITIATED ON RECEIVING CBC RESULTS GIVEN IV FLUIDS AND ZOFRAN SIGNIFICANT IMPROVEMENT IN SYMPTOMS: -NO VOMITING -NO DIARRHEA -ABDOMINAL PAIN RESOLVED NO COUGH NO DYSPNEA NO HYPOXIA NO FEVER DURING ER STAY ON REVIEW OF MED RECONCILIATION, PT WAS PRESCRIBED AUGMENTIN YESTERDAY PT IS NOT SURE IF SHE HAS HAD AUGMENTIN BEFORE HER SYMPTOMS BEGAN TODAY, AFTER STARTING ANTIBIOTIC YESTERDAY, WILL HAVE PT STOP AUGMENTIN, AND WILL START HER ON DOXYCYCLINE FOR HER RESPIRATORY ILLNESS, SHE STATES SHE HAS TAKEN DOXYCYCLINE BEFORE AND NOT HAD ANY PROBLEMS REVIEWED ALL TEST RESULTS, SYMPTOMATIC TREATMENT, DIET, NEED FOR FOLLOW UP AND RETURN PRECAUTIONS DISCUSSED WITH PT Diagnostic Imaging Comments CT CHEST/ABDOMEN/PELVIS--PER RADIOLOGIST REPORT AT 2036 FINDINGS: There are no discrete pulmonary nodules, masses or infiltrates. There is no pleural or pericardial fluid. There is no pneumothorax. The heart size is normal. Thoracic aorta is normal in caliber. There is no pathologically enlarged adenopathy in the chest. The osseous structures are unremarkable. The liver is normal in size and without focal lesions. The gallbladder is surgically absent. There is no biliary ductal dilatation. Spleen is normal. The pancreas and adrenal glands are unremarkable. The kidneys are normal in appearance. The aorta is nonaneurysmal. The bowel gas pattern is nonspecific. There is no free air. There is a moderate amount of fluid in the distal colon possibly reflecting diarrheal state No ascites. There are no focal inflammatory changes. The appendix is normal. The uterus is normal. The bladder is normal. There is no pelvic mass, adenopathy or free fluid. The thoracic and lumbar spine are unremarkable. IMPRESSION: Moderate amount of fluid in the distal colon, possibly reflecting diarrheal state No other acute abnormality in the chest, abdomen or pelvis. Reviewed: Reviewed by Me Departure Impression Primary Impression: Gastroenteritis Additional Impressions: DEHYDRATION Upper respiratory infection Disposition: HOME, SELF-CARE Condition: Improved Departure-Patient Inst. Decision time for Depature: 20:38 Referrals: JOSE CARTAGENA APRN (PCP) Primary Care Physician [facility] (Family) Primary Care Physician Patient Instructions: Dehydration, Adult ED, [id number], Upper Respiratory Infection ED Add. Discharge Instructions: HOME, REST LOTS OF CLEAR LIQUIDS--WATER, BROTH, JELLO, GATORADE BRATS DIET--BANANAS, RICE, APPLESAUCE, TOAST, SALTINES STOP AUGMENTIN, START NEW ANTIBIOTIC, DOXYCYCLINE TOMORROW MORNING CONTINUE YOUR INHALER NEEDED CONTINUE OVER THE COUNTER MEDICATIONS FOR COUGH AND CONGESTION FOLLOW UP WITH [facility] IN 2-3 DAYS IF NO BETTER, RETURN TO ER IF WORSE All discharge instructions reviewed with patient and/or family. Voiced understanding. Scripts Pantoprazole Sodium (Protonix) 40 Mg Tablet. 40 MG PO DAILY, #15 TAB Prov: ANDREY KAY DO 06/20/22 Ondansetron (Ondansetron Odt) 8 Mg Tab.rapdis 8 MG PO Q6H, #10 TAB Prov: ANDREY KAY DO 06/20/22 Doxycycline Hyclate (Doxycycline Hyclate) 100 Mg Tablet 100 MG PO BID, #20 TAB 0 Refills Prov: ANDREY KAY DO 06/20/22 ANDREY KAY DO Jun 20, 2022 19:22
[2022-06-20 19:24] LABS: BUN/CREATININE RATIO 13
[2022-06-20 19:25] LABS: ALANINE AMINOTRANSFERASE 41 U/L (0-55)
[2022-06-20 19:26] LABS: LIPASE 13 U/L (8-78)
[2022-06-20 19:30] LABS: EOSINOPHILS % (MANUAL) 1 %; LYMPHOCYTES % (MANUAL) 3 %; MONOCYTES % (MANUAL) 10 %; NEUTROPHILS % (MANUAL) 86 %; RBC MORPH NORMAL
[2022-06-20 19:41] LABS: BILIRUBIN,URINE NEGATIVE (NEGATIVE); CLARITY,URINE CLEAR; COLOR,URINE YELLOW; GLUCOSE, URINE (UA) NEGATIVE (NEGATIVE); KETONES,URINE NEGATIVE (NEGATIVE); LEUKOCYTE ESTERASE ,URINE NEGATIVE (NEGATIVE); NITRITE,URINE NEGATIVE (NEGATIVE); PH,URINE 5.5 (5-9); PROTEIN,URINE TRACE (NEGATIVE)
[2022-06-20 19:55] LABS: BACTERIA,URINE NEGATIVE /HPF
[2022-06-20] MEDS ORDERED: IOHEXOL 350 MG/ML 100 ML (OMNIPAQUE 350) VIAL IV ONE (20:30)
[2022-06-20] MEDS ORDERED: HOLD METFORMIN - RECEIVED CONTRAST 20 ML VIAL IV SCH (20:30)
[2022-06-20] MEDS ORDERED: NS 100 ML (IVPB) BAG IV ONE (20:30)
--- NOTE | 2022-06-20 20:30 | Diagnostic Imaging Report ---
INDICATION: Cough. COMPARISON is made with prior exam of 03/17/2022. FINDINGS: The heart size, mediastinal configuration, and pulmonary vascularity are within normal limits. There is no pleural effusion, pneumothorax, or pneumonia. The osseous structures are unremarkable. IMPRESSION: No acute cardiopulmonary abnormality. Dictated by: Dictated on workstation # [id number]
--- NOTE | 2022-06-20 20:34 | Diagnostic Imaging Report ---
PROCEDURE: CT chest, abdomen, and pelvis with contrast. TECHNIQUE: Multiple contiguous axial images were obtained through the chest, abdomen, and pelvis after the administration of intravenous contrast. Auto Exposure Controls were utilized during the CT exam to meet ALARA standards for radiation dose reduction. INDICATION: Cough, abdominal pain, nausea and vomiting. FINDINGS: There are no discrete pulmonary nodules, masses or infiltrates. There is no pleural or pericardial fluid. There is no pneumothorax. The heart size is normal. Thoracic aorta is normal in caliber. There is no pathologically enlarged adenopathy in the chest. The osseous structures are unremarkable. The liver is normal in size and without focal lesions. The gallbladder is surgically absent. There is no biliary ductal dilatation. Spleen is normal. The pancreas and adrenal glands are unremarkable. The kidneys are normal in appearance. The aorta is nonaneurysmal. The bowel gas pattern is nonspecific. There is no free air. There is a moderate amount of fluid in the distal colon possibly reflecting diarrheal state No ascites. There are no focal inflammatory changes. The appendix is normal. The uterus is normal. The bladder is normal. There is no pelvic mass, adenopathy or free fluid. The thoracic and lumbar spine are unremarkable. IMPRESSION: Moderate amount of fluid in the distal colon, possibly reflecting diarrheal state No other acute abnormality in the chest, abdomen or pelvis. Dictated by: Dictated on workstation # [id number]
[2022-06-20] MEDS ORDERED: ONDA8TAB13 PO (20:50)
[2022-06-20] MEDS ORDERED: DOXY100T2 PO (20:50)
[2022-06-20] MEDS ORDERED: PANT40TA2 PO (20:50)
[2022-06-20 20:52] VITALS: BP 124/85
== END 2022-06-20 21:02 | disposition home or self-care (01) ==
LOC: EDUNIT# 17:56 → ER 17:58
DX: K52.9 Noninfective gastroenteritis and colitis, unspecified (principal); E86.0 Dehydration; J06.9 Acute upper respiratory infection, unspecified; Z87.891 Personal history of nicotine dependence; Z20.822 Contact with and (suspected) exposure to COVID-19; Z32.02 Encounter for pregnancy test, result negative
CPT/HCPCS: 36415; 71045; 71260; 74177; 80053; 81000; 82150; 83605; 83690; 84145; 84703; 85007; 85027; 87040; 87088; 87636; 93041

== ENCOUNTER 2022-07-05 15:27 | Outpatient (RCR) | payer MEDICAID ==
[~2022-07-05 15:27] MED LIST changes: +DOXY100T2 PO; +PANT40TA2 PO
== END 2022-07-08 | disposition home or self-care (01) ==
PROVIDERS: ATTEND Nurse Practitioner
DX: S43.431A Superior glenoid labrum lesion of right shoulder, initial encounter (principal)

== ENCOUNTER 2022-07-17 12:48 | Outpatient (RCR) | payer MEDICAID | END 2022-07-24 14:23 | disposition home or self-care (01) | PROVIDERS: ATTEND Nurse Practitioner | DX: S43.431A Superior glenoid labrum lesion of right shoulder, initial encounter (principal); J45.909 Unspecified asthma, uncomplicated; X58.XXXA Exposure to other specified factors, initial encounter ==

== ENCOUNTER 2022-10-30 19:37 | Emergency (ER) | payer MEDICAID ==
[~2022-10-30] VITALS: Ht 165.1 cm; Wt 95.0 kg
[2022-10-30 19:45] VITALS: BP 125/81
[2022-10-30] MEDS ORDERED: IBUPROFEN 800 MG (MOTRIN) TAB PO ONE (20:00)
--- NOTE | 2022-10-30 20:01 | ED Lower Extremity ---
General Chief Complaint: Lower Extremity Stated Complaint: KNEE PAIN Source: patient Exam Limitations: no limitations History of Present Illness Date Seen by Provider: Oct 30, 2022 Time Seen by Provider: 19:47 Initial Comments 27-year-old female presents to the ED with complaints of right posterior leg pain which started about 30 minutes ago after she did a high kick while playing "cheerleading" with her daughter. She reports she felt a tear. Pain is located in the posterior inner knee up to about mid posterior inner thigh. Patient reports she took Tylenol which has not provided relief. Past medical history includes asthma and depression. Allergies and Home Medications Allergies Coded Allergies: paroxetine (Unverified Allergy, Unknown, HIVES, 07/25/21) hydrocodone (Verified Adverse Reaction, Mild, 07/21/17) Itching Patient Home Medication List Home Medication List Reviewed: Yes Albuterol Sulfate (Albuterol Sulfate) 8 Mg Tab.er.12h, (Reported) Entered as Reported by: CARMENZA HELLER on 03/17/222039 Azithromycin (Azithromycin) 500 Mg Tablet, 500 MG PO DAILY Prescribed by: REBECCA LAGUERRE MD on 03/17/222244 Benzonatate (Benzonatate) 100 Mg Capsule, (Reported) Entered as Reported by: CARMENZA HELLER on 03/17/222039 Docusate Sodium (Docusate Sodium) 100 Mg Capsule, 100 MG PO BID PRN for CONSTIPATION-1ST LINE Prescribed by: PARISH LOZA on 05/16/19 0734 Doxycycline Hyclate (Doxycycline Hyclate) 100 Mg Tablet, 100 MG PO BID Prescribed by: ANDREY KAY on 06/20/222049 Ibuprofen (Ibu) 600 Mg Tablet, 600 MG PO Q6HR Prescribed by: PARISH LOZA on 05/16/19 0734 Methylprednisolone (Methylprednisolone Dose Pack) 4 Mg Tab.ds.pk, 4 MG PO UD Prescribed by: TASHA ESCAMILLA on 03/13/22 164 Molnupiravir (Molnupiravir (Eua)) 200 Mg Capsule, (Reported) Entered as Reported by: CARMENZA HELLER on 03/17/222039 Ondansetron (Ondansetron Odt) 4 Mg Tab.rapdis, 4 MG SL Q4H PRN for NAUSEA/VOMITING Prescribed by: NI DIOP on 07/22/21 1548 Ondansetron (Ondansetron Odt) 8 Mg Tab.rapdis, 8 MG PO Q6H Prescribed by: ANDREY KAY on 06/20/222049 Oxycodone HCl/Acetaminophen (Percocet 5-325 mg Tablet) 1 Each Tablet, 1-2 TAB PO Q6HR PRN for PAIN-MODERATE Prescribed by: PARISH LOZA on 05/16/19 0734 Pantoprazole Sodium (Protonix) 40 Mg Tablet.dr, 40 MG PO DAILY Prescribed by: ANDREY KAY on 06/20/222049 Vit W-Ca,Fe,FA(<1 mg) ( Vitamins) 1 Each Tablet, 1 EACH PO DAILY, (Reported) Entered as Reported by: CARLA LOCO on 02/07/191534 Review of Systems Constitutional: no symptoms reported Musculoskeletal: joint pain, muscle pain Past Ssarduf-Wbpcwb-Mpnboi Hx Immunizations Up To Date Tetanus Booster (TDap): Unknown PED Vaccines UTD: Yes First/Initial COVID19 Vaccinat: UNKNOWN DATE Second COVID19 Vaccination Mike: YES Third COVID19 Vaccination Date: UNKNOWN DATE Seasonal Allergies Seasonal Allergies: Yes Past Medical History Surgery/Hospitalization HX: rt wrist, t&a, 2 c sections, gallbladder, lt knee Surgeries: Yes (r wrist reconstruction, bmt x4, ) Adenoidectomy, Section, Gallbladder, Orthopedic, Tonsillectomy Respiratory: Yes (childhood asthma) Asthma Currently Using CPAP: No Currently Using BIPAP: No Cardiac: No Neurological: Yes Headaches /Migraines 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 Disorders: No Sexually Transmitted Disease: No HIV/AIDS: No Genitourinary: Yes UTI-Chronic Gastrointestinal: Yes Gall Bladder Disease Musculoskeletal: Yes (ORTHOPEDIC SURGERIES--R WRIST, L KNEE) Endocrine: No HEENT: Yes (S/P T&A) Chronic Ear Infection, Tonsilitis Cancer: No Psychosocial: Yes (post- depression) Anxiety Integumentary: No Blood Disorders: No Family Medical History Alcoholism Completed stroke 19 MOTHER Diabetes mellitus 19 FATHER Drug abuse 19 FATHER 19 MOTHER Hypertension 19 FATHER No Pertinent Family Hx Physical Exam Vital Signs Vital Signs - First Documented 10/30/22 19:45 Temp 36.6 Pulse 82 Resp 16 B/P (MAP) 125/81 (96) Pulse Ox 97 O2 Delivery Room Air Capillary Refill : Height, Weight, BMI Height: 5'5.00" Weight: 177lbs. 2.0oz. 80.150107xi; 35.00 BMI Method:Stated General Appearance: WD/WN, no apparent distress Neck: supple, normal inspection Cardiovascular: regular rate, rhythm, no edema, no gallop, no JVD, no murmur Respiratory: lungs clear, normal breath sounds, no respiratory distress, no accessory muscle use Legs: right leg normal range of motion, right leg pain, right leg soft tissue tenderness Knees: right knee normal range of motion, right knee pain, right knee soft tissue tenderness Neurologic/Psychiatric: alert, normal mood/affect Skin: normal color, warm/dry Progress/Results/Core Measures Results/Orders My Orders Orders - IKER MOSS APRN Herve Bandage (10/30/22 19:56) Crutches (10/30/22 19:56) Ibuprofen Tablet (Motrin Tablet) (10/30/22 20:00) Vital Signs/I&O 10/30/22 19:45 Temp 36.6 Pulse 82 Resp 16 B/P (MAP) 125/81 (96) Pulse Ox 97 O2 Delivery Room Air Progress Progress Note : Time: 19:58 Progress Note Patient seen and evaluated, resting comfortably in recliner, no distress. On exam and symptoms, this is likely a muscular injury. I considered an x-ray, but deferred due to normal range of motion, no bony tenderness, pain is located in soft tissues of posterior knee and lower thigh. Will give 1 dose of ibuprofen, Herve bandage, and crutches, and will have patient follow-up with primary care provider or orthopedics. Departure Impression Primary Impression: Muscle strain Disposition: 01 HOME, SELF-CARE Condition: Stable Departure-Patient Inst. Decision time for Depature: 20:00 Referrals: [facility] (PCP/Family) Primary Care Physician Patient Instructions: Muscle Strain (DC) Add. Discharge Instructions: Apply ice to painful area for 20 minutes at a time several times a day over the next couple days. Take ibuprofen 800 mg every 8 hours with food over the next couple days to help with pain and inflammation. You may also take 1000 mg of Tylenol every 8 hours as needed for pain. Wear the Herve bandage for comfort, use the crutches to stay off the leg. Follow-up with primary care provider or orthopedics. Return for severe pain, numbness or tingling in the leg, inability to move leg, or any other new, concerning, or worsening symptoms. All discharge instructions reviewed with patient and/or family. Voiced understanding. IKER MOSS APRN Oct 30, 2022 20:01
== END 2022-10-30 20:10 | disposition home or self-care (01) ==
LOC: EDUNIT# 19:37 → ER 19:39
DX: S76.911A Strain of unspecified muscles, fascia and tendons at thigh level, right thigh, initial encounter (principal); X50.0XXA Overexertion from strenuous movement or load, initial encounter; Y93.45 Activity, cheerleading
CPT/HCPCS: 99283